=== PATIENT | female | born 1945 | race Caucasian/White ===

== ENCOUNTER → 2016-02-18 | Outpatient (CLI) | payer OTHER, MEDICARE ==
[~2016-02-18] MED LIST: ASPI1TAB83 PO; IBUP-1050 PO; TRAS440I2 IV.
[2016-02-18 13:47] VITALS: BP 103/68; PULSE 80; TEMP 36.5; O2SAT 96
--- NOTE | 2016-02-18 16:31 | Radiation Oncology Follow-Up ---
Radiation Oncology Follow-Up Date of Visit Feb 18, 2016. Reason For Visit 6 month follow-up Radiation Completion Date finished 08-05-2015 Diagnosis (1) Breast cancer, stage 2 Status: Resolved Onset Date: 11/20/2014 Stage: ll Permanent Comment: Self detected left breast mass Status post fine-needle biopsy 11/20/2014 revealing invasive ductal carcinoma grade 3 Ila receptor negative, progesterone receptor negative, HER-2/darren positive Status post lumpectomy and sentinel lymph node biopsy 12/17/2014 Pathologic stage [id number] 6 cycles of chemotherapy TCH and then Herceptin for a total of one year Status post completion of radiation therapy 08/05/2015 received 6280 cGy Last Edited By: Katherin Ng on Aug 21, 2015 10:04 History of Present Illness Ms. Gonzalez is a 71 year-old female without a family history of breast cancer. She self detected a mass in the left inframammary fold. This was causing irritation with her bra. She therefore underwent diagnostic bilateral mammogram performed on 11/18/2014 at [facility]. The right breast findings were unremarkable. In the left breast a palpable lump was noted in the inframammary fold. This palpable mass corresponded to a new round mass with irregular margins seen at the posterior depth 6 o'clock position on mammogram. Targeted ultrasound showed corresponding irregular shadowing mass. This was felt to be highly suspicious and a ultrasound guided core biopsy was suggested. No adenopathy was appreciated. On 11/20/2014 patient underwent a biopsy of the left breast 6 o'clock position, 7 cm from the nipple. This revealed an invasive ductal carcinoma grade 3. Estrogen receptors were negative, progesterone receptors were negative and HER-2 /darren oncoprotein expression is positive. Accession #: [id number]. Patient was subsequently seen by Dr. Vivian Reed for evaluation and discussion of the surgical treatment options.. The patient opted to proceed with breast conserving therapy consisting of a lumpectomy and sentinel node biopsy. This procedure was performed on 12/17/2014. 2 sentinel lymph nodes were identified and were both were benign. The lumpectomy specimen contained an invasive carcinoma NOS, high-grade, 2.2 cm. The invasive carcinoma did not invade into the dermis or epidermis. No DCIS was identified in the specimen. The margins were uninvolved by invasive carcinoma. The distance from the closest invasive margin was 0.2 cm and was the anterior margin. The final pathology was therefore pT2 pN0, ER negative CT negative HER-2/darren positive. Accession #: [id number]. The patient was seen by Dr. Vaughn Neville for discussion of the adjuvant treatment options. He recommended a course of systemic chemotherapy along with Herceptin. This chemotherapy is planned to start within the next week or so. We were asked to see this patient therefore to discuss with her the role of adjuvant radiation to begin following the completion of her systemic chemotherapy. It is for this reason the patient is being seen in referral. Following completion of her systemic chemotherapy she returned and underwent radiation therapy. This was completed 08/05/2015 she received 6280 cGy. Interim History She's been doing well over the past 6 months. She denies any changes to her breast. She has noted no masses or tenderness and no change of the axilla. She 's had no swelling of her arm. She is up-to-date on mammography. She's been followed closely by medical oncology and has had recheck echocardiograms. She has completed her Herceptin. Many of the side effects of treatment have steadily improved. Her hair is coming in and is very thick. The changes to the nails have grown out. She had a mammogram 11/23/2015. This showed previous radiation changes and excisional biopsy. The findings were benign. Short interval follow-up was recommended in 6 months for the left breast. The right breast had no evidence of malignancy and 1 year follow-up was recommended. This was given BI-RADS Category 3. Allergies Coded Allergies: No Known Allergies (Unverified , 12/07/14) Home Medications Scheduled Aspirin (Aspirin), 1 TAB PO DAILY Review of Systems Gastrointestinal: Symptoms: WNL Oral: Symptoms: No Problems Respiratory: Symptoms: WNL Urinary: Symptoms: WNL Skin: Symptoms: No Problems Breast: Right Upper Arm Measurement: 28.5 Right Mid Arm Measurement: 23.0 Right Wrist Measurement: 15.8 Left Upper Arm Measurement: 28.0 Left Mid Arm Measurement: 22.0 Left Wrist Measurement: 16.1 Arm Dominence: Right Patient Cosmetic Evaluation: Excellent Staff Cosmetic Evalaluation: Excellent Physical Exam Vital Signs Date Time Temp Pulse Resp B/P Pulse Ox O2 Delivery O2 Flow Rate FiO2 02/18/16 13:47 36.5 80 16 103/68 96 Pain: Side: Bilateral Patient Pain Scale: 0 - 10 Initial Pain Intensity: 0.0 Fatigue: None General Appearance: no apparent distress Eyes: normal inspection, EOMI ENT: normal ENT inspection, hearing grossly normal Neck: no adenopathy Respiratory/Chest: lungs clear, no respiratory distress, no accessory muscle use Breast: Breast examination reveals well-healed incisions of the left breast there is resolving hyperpigmentation. There are no masses or tenderness and no change of the axilla. There are no skin retractions or nipple changes. Using the [place] score cosmesis she has a good outcome. The right breast showed no masses or tenderness and no axillary adenopathy. Cardiovascular: regular rate, rhythm, no gallop, no murmur Abdomen: non tender, soft Extremities: no pedal edema Neurologic/Psychiatric: no motor/sensory deficits, alert, normal mood/affect Skin: warm/dry Lymphatic: no adenopathy Additional Studies Mammography as reviewed above. Assessment & Plan Plan: Continue scheduled mammography. She is due for a left breast mammogram in May. This has been scheduled. Continue regular follow-up with medical oncology as well as her primary care physician. We asked her to return to our office in 1 year. She may call if she has any questions or concerns in the interim. Total Time In Follow-Up I spent 20 minutes speaking to the patient performing examination. SPEP 15 minutes reviewing information and completing this note. Copy To Vivian Reed MD; Vaughn Neville M.D.; Luis Antonio Ingram M.D. Problem Qualifiers (1) Breast cancer, stage 2: Laterality: left Qualified Codes: C50.912 - Malignant neoplasm of unspecified site of left female breast
== END | disposition home or self-care (01) ==
LOC: C.ONC 13:23
PROVIDERS: ATTEND Radiology Radiation Oncology
DX: Z08 Encounter for follow-up examination after completed treatment for malignant neoplasm (principal); Z92.3 Personal history of irradiation; Z85.3 Personal history of malignant neoplasm of breast

== ENCOUNTER → 2017-02-16 | Outpatient (CLI) | payer OTHER, MEDICARE ==
[2016-02-18 13:47] VITALS: BP 103/68; PULSE 80
[~2017-02-16] MED LIST changes: -IBUP-1050 PO; +MULTTAB58 PO; -TRAS440I2 IV.
[2017-02-16 13:00] VITALS: BP 119/88; PULSE 76; TEMP 36.4; O2SAT 98
--- NOTE | 2017-02-16 14:23 | Radiation Oncology Follow-Up ---
Radiation Oncology Follow-Up Date of Visit Feb 16, 2017. Reason For Visit Annual follow-up Radiation Completion Date 08/05/15 Diagnosis (1) Breast cancer, stage 2 Status: Resolved Onset Date: 11/20/2014 Permanent Comment: Self detected left breast mass Status post fine-needle biopsy 11/20/2014 revealing invasive ductal carcinoma grade 3 Estrogen receptor negative, progesterone receptor negative, HER-2/darren positive Status post lumpectomy and sentinel lymph node biopsy 12/17/2014 Pathologic stage [id number] 6 cycles of chemotherapy TCH and then Herceptin for a total of one year Status post completion of radiation therapy 08/05/2015 received 6280 cGy Last Edited By: Katherin Ng on Feb 16, 2017 14:16 History of Present Illness Ms. Gonzalez is without a family history of breast cancer. She self detected a mass in the left inframammary fold. This was causing irritation with her bra. She therefore underwent diagnostic bilateral mammogram [facility] 11[facility]18[facility]2014 [facility]. The right breast findings were unremarkable. In the left breast a palpable lump was noted in the inframammary fold. This palpable mass corresponded to a new round mass with irregular margins seen at the posterior depth 6 o'clock position on mammogram. Targeted ultrasound showed corresponding irregular shadowing mass. This was felt to be highly suspicious and a ultrasound guided core biopsy was suggested. No adenopathy was appreciated. On 11/20/2014 patient underwent a biopsy of the left breast 6 o'clock position, 7 cm from the nipple. This revealed an invasive ductal carcinoma grade 3. Estrogen receptors were negative, progesterone receptors were negative and HER-2 /darren oncoprotein expression is positive. Accession #: [id number]. Patient was subsequently seen by Dr. Vivian Reed for evaluation and discussion of the surgical treatment options.. The patient opted to proceed with breast conserving therapy consisting of a lumpectomy and sentinel node biopsy. This procedure was performed on 12/17/2014. 2 sentinel lymph nodes were identified and were both were benign. The lumpectomy specimen contained an invasive carcinoma NOS, high-grade, 2.2 cm. The invasive carcinoma did not invade into the dermis or epidermis. No DCIS was identified in the specimen. The margins were uninvolved by invasive carcinoma. The distance from the closest invasive margin was 0.2 cm and was the anterior margin. The final pathology was therefore pT2 pN0, ER negative [place] negative HER-2/darren positive. Accession #: [id number]. The patient was seen by Dr. Vaughn Neville for discussion of the adjuvant treatment options. He recommended a course of systemic chemotherapy along with Herceptin. This chemotherapy is planned to start within the next week or so. We were asked to see this patient therefore to discuss with her the role of adjuvant radiation to begin following the completion of her systemic chemotherapy. It is for this reason the patient is being seen in referral. Following completion of her systemic chemotherapy she returned and underwent radiation therapy. This was completed 08/05/2015 she received 6280 cGy. Interim History She's been doing well over this past year. She denies any changes to her breast. She has noticed no masses or tenderness and no change of the axilla. No swelling of her arm. She is up-to-date on mammography. She had a mammogram 11/21/2016. This was a bilateral breast mammogram. This was negative with no evidence of malignancy with normal interval follow-up was recommended in 12 months. She finished her Herceptin without any difficulties. Allergies Coded Allergies: No Known Allergies (Unverified , 12/07/14) Home Medications Scheduled Aspirin (Aspirin), 1 TAB PO DAILY Multiple Vitamin (Multivitamin), 1 TAB PO 1-2x Week Review of Systems Gastrointestinal: Symptoms: WNL Oral: Symptoms: No Problems Respiratory: Symptoms: WNL Urinary: Symptoms: WNL Skin: Symptoms: No Problems Breast: Right Upper Arm Measurement: 28.0 Right Mid Arm Measurement: 23.0 Right Wrist Measurement: 15.7 Left Upper Arm Measurement: 28.7 Left Mid Arm Measurement: 23.1 Left Wrist Measurement: 15.6 Arm Dominence: Right Patient Cosmetic Evaluation: Excellent Staff Cosmetic Evalaluation: Excellent Physical Exam Vital Signs Date Time Temp Pulse Resp B/P (MAP) Pulse Ox O2 Delivery O2 Flow Rate FiO2 02/16/17 13:00 36.4 76 16 119/88 98 Fatigue: None General Appearance: no apparent distress Eyes: normal inspection, EOMI ENT: normal ENT inspection, hearing grossly normal Neck: no adenopathy, thyroid normal Respiratory/Chest: lungs clear, no respiratory distress, no accessory muscle use Breast: Breast examination reveals well-healed incisions of the left breast. There are no masses or tenderness and no axillary adenopathy. She has no skin retractions or nipple changes. Using the [place] score cosmesis she has a excellent outcome. The right breast showed no masses or tenderness no axillary adenopathy. Cardiovascular: regular rate, rhythm, no gallop, no murmur Abdomen: non tender, soft Extremities: no pedal edema Neurologic/Psychiatric: no motor/sensory deficits, alert, normal mood/affect Skin: warm/dry Lymphatic: no adenopathy Pain Management Patient Reports Pain: No Side: Bilateral Patient Preferred Pain Scale: 0 - 10 Initial Pain Intensity: 0.0 Pain Management Plan She denies pain therefore requires no pain management. Laboratory Laboratory Results: not applicable Pathology Pathology Results: not applicable Imaging Imaging Studies: were reviewed Imaging Comments See interim history. Assessment & Plan Plan: Continue annual mammography. Continue regular follow-up with Dr. Reed, Dr. Neville in medical oncology, and her primary care physician. We asked her to return to our office in 1 year. She will call if she has any questions or concerns in the interim. Total Time In Follow-Up I spent 20 minutes speaking to the patient perform examination. I spent 15 minutes reviewing information and completeness note. Copy To Vivian Reed MD; Vaughn Neville M.D.; Luis Antonio Ingram M.D. Problem Qualifiers (1) Breast cancer, stage 2: Laterality: left Qualified Codes: C50.912 - Malignant neoplasm of unspecified site of left female breast
== END | disposition home or self-care (01) ==
LOC: C.ONC 12:47
PROVIDERS: ATTEND Physician Assistant Medical
DX: Z08 Encounter for follow-up examination after completed treatment for malignant neoplasm (principal); Z92.3 Personal history of irradiation; Z85.3 Personal history of malignant neoplasm of breast

== ENCOUNTER 2017-03-13 23:02 | Inpatient (IN) | payer OTHER, MEDICARE ==
[~2017-03-13] VITALS: Ht 165.1 cm; Wt 69.3 kg
[2017-03-13] MEDS ORDERED: SODIUM CHLORIDE 0.9% 1000ML 1,000 ML IV SCH (23:14)
[2017-03-13 23:22] LABS: BASO % 0.3 %; BASO ABS # 0.02 K/uL (0-0.2); EOS % 1.3 %; HEMATOCRIT 43.2 % (37-47); HEMOGLOBIN 14.8 g/dL (12.0-16.0); IG# 0.02 K/uL (0.00-0.02); LYMPH % 30.3 %; MEAN CELL VOLUME 89.3 fL (80-100); MEAN CORPUSCULAR HEMOGLOBIN 30.6 pg (25-34); MEAN CORPUSCULAR HGB CONC 34.3 g/dl (32-36); MEAN PLATELET VOLUME 8.8 fL (7.4-10.4); MONO % 7.9 %; MONO ABS # 0.63 K/uL (0.11-0.59); NEUT % 59.9 %; NEUT ABS # 4.76 K/uL (1.4-6.5); PLATELET COUNT 249 K/uL (130-400); RED CELL DISTRIBUTION WIDTH CV 13.3 % (11.5-14.5); RED CELL DISTRIBUTION WIDTH SD 43.5 fL (36.4-46.3); WHITE BLOOD COUNT 7.93 K/uL (4.8-10.8)
--- NOTE | 2017-03-13 23:27 | EMERGENCY ROOM VISIT NOTE ---
History Report prepared by Kimberley: Bethanie Claudio Under the Supervision of: Dr. Modesta Ware D.O. First contact with patient: 22:57 Chief Complaint: NEURO SYMPTOMS Stated Complaint: WEAK/NAUSEA/ALMS History of Present Illness The patient is a 72 year old female who presents to the Emergency Room with complaints of an episode of neuro symptoms starting 4 hours ago. Per the patient 's , he came home an hour ago and she was sleeping. He states that he woke her up and she seemed disoriented. He states that she was unable to walk and form sentences. The patient states that she was having difficulty driving earlier right after her last known well time. The patient complains of difficulty finding her words, nausea, vomiting, and weakness. The patient denies blurred vision, headaches, urinary symptoms, dizziness, lightheadedness, abdominal pain, chest pain, cough, diarrhea, and hematochezia. She denies ever having these symptoms before. EMS notes that the patient is unable to relax her right arm. Source of History: patient Onset: 4 hours ago Position: other (global) Quality: other (neuro) Timing: other (episode) Associated Symptoms: + nausea, + vomiting, + weakness, No headache, No cough , No chest pain, No abdominal pain, No hematochezia, No diarrhea, No urinary symptoms Note: The patient complains of difficulty finding her words. The patient denies blurred vision, dizziness, and lightheadedness. Review of Systems See HPI for pertinent positives & negatives. A total of 10 systems reviewed and were otherwise negative. Past Medical & Surgical Medical Problems: (1) Breast cancer, stage 2 (2) Increased intracranial pressure Family History No pertinent family history Social History Smoking Status: Former Smoker Marital Status: Housing Status: lives with significant other Current/Historical Medications Scheduled Aspirin (Aspirin), 1 TAB PO DAILY Multiple Vitamin (Multivitamin), 1 TAB PO 1-2x Week Allergies Coded Allergies: No Known Allergies (Unverified , 03/14/17) Physical Exam Vital Signs Date Time Temp Pulse Resp B/P (MAP) Pulse Ox O2 Delivery O2 Flow Rate FiO2 03/14/17 00:11 36.5 78 18 121/88 95 Room Air 03/13/17 23:55 95 Room Air 03/13/17 23:49 77 18 146/84 95 Room Air 03/13/17 23:13 79 Physical Exam GENERAL: alert, well appearing, well nourished, no distress, non-toxic EYE EXAM: normal conjunctiva, PERRL and EOM's grossly intact OROPHARYNX: no exudate, no erythema, lips, buccal mucosa, and tongue normal and mucous membranes are moist NECK: supple, no nuchal rigidity, no adenopathy, non-tender LUNGS: Clear to auscultation. Normal chest wall mechanics HEART: no murmurs, S1 normal and S2 normal ABDOMEN: abdomen soft, non-tender, normo-active bowel sounds, no masses, no rebound or guarding. BACK: Back is symmetrical on inspection and there is no deformity, no midline tenderness, no CVA tenderness. SKIN: no rashes and no bruising UPPER EXTREMITIES: upper extremities are grossly normal. LOWER EXTREMITIES: No pitting edema. NEURO EXAM: Cranial nerves II-XII grossly intact, normal speech, difficulty understanding and following commands, moving all four extremities spontaneously , difficulty cooperating for strength and sensory testing, difficulty understanding and cooperating for cerebellar testing, no obvious asymmetric limb weakness or ataxia, last known well time is 1900. Medical Decision & Procedures ER Provider Diagnostic Interpretation: Radiology results have been interpreted by the radiologist and reviewed by me. CT HEAD: No intracranial hemorrhage or apparent acute infarct. Vasogenic edema involving the left parietal lobe with local mass effect. Underlying lesion not delineated on this exam. Recommend MRI with and without contrast to further assess. No midline shift. Radiologist: Jud Weber MD Study ready at 23:26 and initial results transmitted at 23:31. Laboratory Results 03/13/17 22:46 Red Blood Count 4.84, Mean Corpuscular Volume 89.3, Mean Corpuscular Hemoglobin 30.6, Mean Corpuscular Hemoglobin Concent 34.3, Mean Platelet Volume 8.8, Neutrophils (%) (Auto) 59.9, Lymphocytes (%) (Auto) 30.3, Monocytes (%) (Auto) 7.9, Eosinophils (%) (Auto) 1.3, Basophils (%) (Auto) 0.3, Neutrophils # (Auto) 4.76, Lymphocytes # (Auto) 2.40, Monocytes # (Auto) 0.63, Eosinophils # (Auto) 0.10, Basophils # (Auto) 0.02 03/13/17 22:46 Test 2/5/18 22:46 White Blood Count 7.93 K/uL (4.8-10.8) Red Blood Count 4.84 M/uL (4.2-5.4) Hemoglobin 14.8 g/dL (12.0-16.0) Hematocrit 43.2 % (37-47) Mean Corpuscular Volume 89.3 fL (80-100) Mean Corpuscular Hemoglobin 30.6 pg (25-34) Mean Corpuscular Hemoglobin Concent 34.3 g/dl (32-36) Platelet Count 249 K/uL (130-400) Mean Platelet Volume 8.8 fL (7.4-10.4) Neutrophils (%) (Auto) 59.9 % Lymphocytes (%) (Auto) 30.3 % Monocytes (%) (Auto) 7.9 % Eosinophils (%) (Auto) 1.3 % Basophils (%) (Auto) 0.3 % Neutrophils # (Auto) 4.76 K/uL (1.4-6.5) Lymphocytes # (Auto) 2.40 K/uL (1.2-3.4) Monocytes # (Auto) 0.63 K/uL (0.11-0.59) Eosinophils # (Auto) 0.10 K/uL (0-0.5) Basophils # (Auto) 0.02 K/uL (0-0.2) RDW Standard Deviation 43.5 fL (36.4-46.3) RDW Coefficient of Variation 13.3 % (11.5-14.5) Immature Granulocyte % (Auto) 0.3 % Immature Granulocyte # (Auto) 0.02 K/uL (0.00-0.02) Prothrombin Time 9.8 SECONDS (9.0-12.0) Prothromb Time International Ratio 0.9 (0.9-1.1) Activated Partial Thromboplast Time 26.9 SECONDS (21.0-31.0) Partial Thromboplastin Ratio 1.0 Anion Gap 4.0 mmol/L (3-11) Estimated GFR () 106.1 Estimated GFR (Non- 91.6 BUN/Creatinine Ratio 36.1 (10-20) Calcium Level 9.2 mg/dl (8.5-10.1) Magnesium Level 2.1 mg/dl (1.8-2.4) Total Bilirubin 0.4 mg/dl (0.2-1) Direct Bilirubin < 0.1 mg/dl (0-0.2) Aspartate Amino Transf (AST/SGOT) 16 U/L (15-37) Alanine Aminotransferase (ALT/SGPT) 15 U/L (12-78) Alkaline Phosphatase 92 U/L (45-117) Total Creatine Kinase 48 U/L (26-192) Creatine Kinase MB 1.0 ng/ml (0.5-3.6) Creatine Kinase MB Ratio 2.1 (0-3.0) Troponin I < 0.015 ng/ml (0-0.045) Total Protein 7.4 gm/dl (6.4-8.2) Albumin 3.9 gm/dl (3.4-5.0) Thyroid Stimulating Hormone (TSH) 1.940 uIu/ml (0.300-4.500) Laboratory results per my review. Medications Administered Medications (Trade) Dose Ordered Sig/Benjamin Route Start Time Stop Time Status Last Admin Dose Admin Sodium Chloride 1,000 ml @ 50 mls/hr Q20H IV 03/13/17 23:14 03/14/17 04:42 DC 03/14/17 00:06 50 MLS/HR Ondansetron HCl (Zofran Inj) 4 mg NOW STAT IV 03/13/17 23:28 03/13/17 23:29 DC 03/14/17 00:47 4 MG Levetiracetam 1000 mg/Dextrose 110 ml @ 440 mls/hr ONE ONCE IV 03/14/17 00:30 03/14/17 00:44 DC 03/14/17 00:38 440 MLS/HR Dexamethasone Sodium Phosphate 4 mg/Syringe 1 ml @ 1 mls/min NOW STAT IV 03/14/17 01:06 03/14/17 01:08 DC 03/14/17 01:06 1 MLS/MIN ECG Indication: altered mental status Rate (beats per minute): 78 Rhythm: sinus rhythm Findings: no acute ischemic change, no ectopy, other (normal axis, normal intervals, baseline artifact noted) Change: EKG: Patient's electrocardiogram per my interpretation. ED Course 2302: The patient was evaluated in room B7. A complete history and physical exam was performed. 2313: Stroke alert called. 2314: Ordered NSS 1000 ml @ 50 mls/hr IV. 2322: Additional discussion with the family revealed no other obvious symptoms to administer TPA. 2328: Ordered Zofran Inj 4 mg IV. 2329: I reevaluated the patient and she was unchanged. 2331: I discussed the patient's case with Dr. Ethan Landry Neurology. He is going to do a bedside evaluation as a precaution. 2334: I updated the patient and her family on her test results and need for additional evaluation. No change in condition. 2354: I reevaluated the patient and she remains unchanged. The tele-stroke conference is currently going on. 0014: I reevaluated the patient and the bed side evaluation via video conference with Dr. Weiss was still going on. He states that she needs admission to a facility with neurosurgical coverage. He recommends 1 g Keppra and 10 mg of Decadron. The family is aware of the results and is agreeable to transfer. They would prefer to be transferred to [facility]. 0030: Ordered Levetiracetam 1000 mg/ Dextrose 110 ml @ 440 mls/hr IV. 0101: I discussed the patient's case with Dr. Gerardo Hernandez Neurosurgeon. He agrees with 4 mg of Decadron and is agreeable with the Keppra. He does not believe that she needs any acute surgical intervention. 0106: Ordered Dexamethasone Sodium Phosphate 4 mg/Syringe 1 ml @ 1 mls/min IV. 0111: I discussed the patient's case with Dr. Laurel Hernandez Hospitalist. He recommended talking to neurology. 0113: Ordered Decadron Inj 4 mg IV. 0118: I discussed the patient's case with Dr. Nirali Hernandez Neurology. There are no current beds in their facility. Her name is on a wait list for a bed. 0125: I reevaluated the patient and updated her and her family. 0135: I reviewed the patient's case with Dr. Yulia Hernandez Hospitalignacia. He will evaluate the patient for further management till she can be transferred. Medical Decision The patient is a 72 year old female who presents to the Emergency Room with complaints of an episode of neuro symptoms starting 4 hours ago. Differential diagnosis: Etiologies such as metabolic, infection, hypo/hyperglycemia, electrolyte abnormalities, cardiac sources, intracerebral event, toxicologic, neurologic, as well as others were entertained. Pt initially evaluated and thought to possible by having a stroke. Stroke alert called and pt evaluated via tele neurologist. CT revealed edema thought to possible be mets from prior breast cancer. No midline shift, no need for emergent surgical intervention. Discussed case with multiple consultants given recommendation by tele neurologist to transfer to facility with neuro icu and neurosurgical coverage. No beds available at [facility] and they feel stable to remain here until bed becomes available later in the morning. Discussed with Dr. Rosas to manage in the interim. Pt sx mildly improved here. Keppra and decadron given. No additional infectious etiology noted. Hemodynamically stable. Pt and aware of all results, concerns, and agreeable with plan. Medication Reconcilliation Current Medication List: was personally reviewed by me Blood Pressure Screening Patient's blood pressure: Elevated blood pressure Blood pressure disposition: Elevated BP felt to be situational Consults Time Called: 232 Consulting Physician: Dr. Ethan Landry Neurologist Returned Call: 2331 I discussed the patient's case with Dr. Ethan Landry Neurology. He is going to do a bedside evaluation as a precaution. Additional Consults: Time Called: 002 Consulted Physician: Dr. Gerardo Hernandez Neurosurgeon Returned Call: 0101 Additional Comments: I discussed the patient's case with Dr. Gerardo Hernandez Neurosurgeon. He agrees with 4 mg of Decadron and is good with the Keppra. He does not believe that she needs any acute intervention. Time Called: 0108 Consulted Physician: Dr. Laurel Hernandez Hospitalist Returned Call: 0111 Additional Comments: I discussed the patient's case with Dr. Laurel Brager. He recommended talking to neurology. Impression Primary Impression: Stroke-like symptom Additional Impression: Cerebral edema Critical Care I have personally spent 60 minutes of critical care time in the direct management of this patient. This includes bedside care, interpretation of diagnostic studies, and testing, discussion with consultants, patient, and family members, and other required patient management activities. This 60 minutes is in excess of all separately billable procedures. Scribe Attestation The scribe's documentation has been prepared under my direction and personally reviewed by me in its entirety. I confirm that the note above accurately reflects all work, treatment, procedures, and medical decision making performed by me. Departure Information Dispostion Being Evaluated By Hospitalist Patient Instructions My [facility] Stroke History Time Last Known Well 1900 (4 hours ago) Stroke t-PA Criteria Reviewed Does NOT meet criteria for t-PA Reason t-PA Not Given Contraindicated Problem Qualifiers
[2017-03-13] MEDS ORDERED: ONDANSETRON INJ 2 MG/ML 2 ML VIAL IV STA (23:28)
[2017-03-13 23:33] LABS: INR 0.9 (0.9-1.1); PTT PATIENT 26.9 SECONDS (21.0-31.0)
[2017-03-13 23:39] LABS: BLOOD UREA NITROGEN 21 mg/dl (7-18); CALCIUM 9.2 mg/dl (8.5-10.1); CARBON DIOXIDE 31 mmol/L (21-32); GLUCOSE 106 mg/dl (70-99); POTASSIUM 4.4 mmol/L (3.5-5.1); SODIUM 139 mmol/L (136-145)
[2017-03-13 23:42] LABS: CREATININE 0.59 mg/dl (0.60-1.20)
[2017-03-13 23:49] LABS: ALBUMIN 3.9 gm/dl (3.4-5.0); ALKALINE PHOSPHATASE 92 U/L (45-117); ALT/SGPT 15 U/L (12-78); AST/SGOT 16 U/L (15-37); TOTAL PROTEIN 7.4 gm/dl (6.4-8.2)
[2017-03-14] MEDS ORDERED: LEVETIRACETAM IV 1,000 MG in DEXTROSE 5% 100ML 100 ML IV ONE (00:30)
[2017-03-14] MEDS ORDERED: DEXAMETHASONE INJ 4 MG in SYRINGE 0 ML IV STA (01:06)
[2017-03-14] MEDS ORDERED: DEXAMETHASONE SOD INJ 4 MG/ML VIAL ONE (01:13)
[2017-03-14] MEDS ORDERED: DEXAMETHASONE SOD INJ 4 MG/ML VIAL IV STA (02:10)
[2017-03-14] MEDS ORDERED: DEXAMETHASONE INJ 6 MG in SYRINGE 0 ML IV ONE (02:15)
[2017-03-14 02:16] VITALS: BP 118/79; PULSE 76; TEMP 36.5; O2SAT 96; Ht 165.1 cm; Wt 69.3 kg
[2017-03-14 02:24] VITALS: O2SAT 95
[2017-03-14] MEDS ORDERED: LORAZEPAM 2 MG/ML 1 ML VIAL IV PRN (02:30)
[2017-03-14] MEDS ORDERED: PROCHLORPERAZINE INJ 5 MG in SYRINGE 4 ML IV PRN (02:30)
[2017-03-14] MEDS ORDERED: MoRPHine SULFATE 4 MG/ML 1 ML CARP\\VIAL IV PRN (02:30)
[2017-03-14] MEDS ORDERED: OXYCODONE/ACETAMINOPHEN 5-325 TAB PO PRN (02:30)
[2017-03-14] MEDS ORDERED: NITROGLYCERIN 0.4 MG SL PER TAB CHARGE SL PRN (02:30)
[2017-03-14] MEDS ORDERED: ACETAMINOPHEN 325 MG TAB PO PRN (02:30)
[2017-03-14] MEDS ORDERED: GADAVIST IV PRN (03:30)
[2017-03-14] MEDS ORDERED: SODIUM CHLORIDE 0.9% 1000ML 1,000 ML IV ONE (04:30)
--- NOTE | 2017-03-14 05:59 | HISTORY & PHYSICAL EXAMINATION ---
DATE OF ADMISSION: 03/14/2017 PRIMARY CARE PHYSICIAN: Luis Antonio Ingram MD CHIEF COMPLAINT: Disoriented as per records. HISTORY OF PRESENT ILLNESS: History obtained from patient, , and records. Limited history obtained from the patient secondary to aphasia. Medical history significant of breast cancer, left, status post surgery, radiation, chemotherapy, hormonal therapy. Patient was found to have adenocarcinoma of the left breast in November 2014. She subsequently underwent surgery, radiation, chemotherapy, and hormonal therapy. Last PET scan in January 2015 showed no metabolically active lesions Noted anywhere else about 3-4 mm right upper lobe nodule noted. CT chest, abdomen, pelvis 08/2016 1. Two small pulmonary nodules again noted, stable in size since the prior CT. 2. Stable size of right paraspinal cystic mass at T7 level. Consider continued attention on the follow up studies. 3. No new enlarged thoracic lymph nodes. 4. Postoperative changes of left mastectomy with a small residual fluid collection which has decreased in size since the prior exam. Bilateral breast mammogram November 2016 showed new no new suspicious findings. Clinically well as per recent outpatient [facility] On[place] follow-up visit last week. Yesterday, patient had trouble driving. Later on, had trouble finding words, nonspecific headache. Patient's found her confused. No chest pain, no shortness of breath, no head trauma. At the Emergency Room, CT head initial read showed no intracranial hemorrhage, vasogenic edema involving the left parietal lobe with local mass effect. Recommend MRI. Unable to transfer patient to a tertiary hospital secondary to bed unavailability. Given Decadron in the ER for increased intracranial pressure from a possible brain tumor and given Keppra for seizure prophylaxis as per [facility] Neurosurgery recommendations. Patient currently able to talk more as per . MEDICAL HISTORY: As above. Colonoscopy in 2016 showed diverticulosis. SURGERIES: She has had an A port placement, breast surgery, foot surgery. HOME MEDICATIONS: Include aspirin and multivitamins. ALLERGIES: No known drug allergies. FAMILY HISTORY: Breast cancer and lung cancer. PERSONAL AND SOCIAL HISTORY: Past tobacco abuse. 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 REVIEW OF SYSTEMS: Could not be reliably obtained. PHYSICAL EXAMINATION: VITAL SIGNS: Blood pressure noted to be 121/88, pulse rate 80, RR 18, temperature 36.5, sats 95 on room air. GENERAL: Noted to be anxious, tearful, no respiratory distress, aphasic. SKIN: Normal color and warm. HEENT: Albin palpebral conjunctivae. No ptosis. Dry mucosa. NECK: Supple and nontender. CHEST: Clear to auscultation. No tenderness. HEART: Regular rate and rhythm. No murmur. ABDOMEN: Soft, nontender. EXTREMITIES: No edema. No gross deformities. No tenderness NEUROLOGIC: Aphasic. No pronator drift. ? field cut/neglect on the right side. LABORATORY STUDIES: Hemoglobin was noted to be 14.8, hematocrit 43.2, white cell count 7.9, platelets 249. Sodium 140, potassium 4.4, chloride 104, CO2 21, BUN 21, creatinine 0.5, glucose 106. EKG, as per my interpretation, rate 80, normal sinus rhythm, no ischemia. CT head as above. ASSESSMENT AND PLAN: 1. 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 2. Past tobacco abuse. PCU neurochecks. Decadron RTC for now. Keppra for seizure prophylaxis. MRI of the brain. Will likely need Oncology consultation regarding brain tumor workup/mx pending MRI results. (Patient known to Dr. Neville.) DVT prophylaxis, SCDs RE brain tumor. Full code. Patient's requesting updates from providers. Mr. Guillermo Gonzalez at [phone]. MTDD
--- NOTE | 2017-03-14 07:10 | DIAGNOSTIC IMAGING REPORT ---
CT SCAN OF THE BRAIN WITHOUT IV CONTRAST CLINICAL HISTORY: Strokelike symptoms. COMPARISON STUDY: No priors. TECHNIQUE: Unenhanced axial CT scan of the brain is performed from the vertex to the skull base. A dose lowering technique was utilized adhering to the principles of ALARA. CT DOSE: 537.48 mGy.cm FINDINGS: Brain parenchyma: There is a large region of edema identified in the high left parietal lobe. Tiny foci of hyperdensity seen on image #21 may represent trace hemorrhage. The overlying cortex is spared, and the appearance is highly concerning for a mass lesion. There is effacement of overlying cortical sulci. This also effaces the posterior horn of the left lateral ventricle. No midline shift is seen. No additional foci of edema are identified. There are age-related involutional changes noting mild subcortical and periventricular microangiopathic change. There is no evidence of acute territorial ischemia by CT criteria. No extra-axial fluid collection is seen. Ventricles, sulci, cisterns: Prominent secondary to involutional change. See above. Intracranial vasculature: There is atherosclerotic calcification of the cavernous carotid arteries. Calvarium: Unremarkable. Sinuses and mastoids: The visualized paranasal sinuses are clear. The mastoid air cells are well pneumatized. Orbits: The bony orbits are grossly intact. There are bilateral ocular lens implants. IMPRESSION: 1. There is a large focus of edema identified in the high left parietal lobe. The appearance is highly concerning for a mass, and follow-up with a contrast-enhanced MRI of the brain is recommended for further assessment. 2. Question trace hemorrhage within this lesion. 3. No additional foci of edema are suspected. 4. There is no evidence of acute territorial ischemia by CT criteria. No midline shift is identified. Electronically signed by: Semaj Stringer M.D. 03/14/2017 7:09 AM Dictated Date/Time: 03/14/2017 7:05 AM
--- NOTE | 2017-03-14 07:14 | DIAGNOSTIC IMAGING REPORT ---
BRAIN COMBO CLINICAL HISTORY: leal, aphasia mental status change COMPARISON STUDY: No previous studies for comparison. TECHNIQUE: Utilizing a 1.5 Daphne magnet and dedicated coil, multiplanar, multiecho imaging of the brain was performed pre and postcontrast administration. IV administration of 7 mL of Gadavist contrast was uneventful. FINDINGS: There is evidence for a peripheral enhancing mass posterior aspect left parietal occipital lobe. The enhancing component measures 2.7 x 2.0 cm. Enhancement characteristics are primarily peripheral with several internal enhancing septations. Considerable surrounding reactive vasogenic edema. This extends over a distance of 7.8 x 4.5 cm. It creates partial effacement occipital horn left lateral ventricle. There is partial impact upon the left optic radiations. There is no definite and/or only very subtle midline shift to the right no more than 3 mm. Remainder the brain demonstrates several small foci of increased signal within the periventricular deep white matter regions. These additional findings show no abnormal postcontrast enhancement and is suggestive of chronic small vessel change. Diffusion-weighted images show a slight increase in signal surrounding the enhancing mass. It is not, however appear to be evidence for a true focal ischemic event. The basilar cisterns are intact. The sella and parasellar regions are unremarkable. Pituitary is unremarkable. IMPRESSION: 1. Peripherally enhancing mass of the left parietal occipital junction posteriorly. 2. Diagnostic considerations primarily include a focal primary brain neoplastic process such as glioblastoma, with other entities less likely. 3. Considerable surrounding geographic area of reactive vasogenic edema with partial effacement occipital horn left lateral ventricle and slight midline shift to the right. 4. No additional lesions are identified. The above report was generated using voice recognition software. It may contain grammatical, syntax or spelling errors. Electronically signed by: Hoang Naranjo M.D. 03/14/2017 7:12 AM Dictated Date/Time: 03/14/2017 7:03 AM
[2017-03-14 07:27] VITALS: BP 106/70; PULSE 90; TEMP 36.8; O2SAT 96
[2017-03-14] MEDS: DEXAMETHASONE INJ 4 MG in SYRINGE 0 ML IV SCH ×2 (08:21→16:45)
[2017-03-14] MEDS ORDERED: OPTIRAY 320 IV PRN (10:15)
[2017-03-14 11:48] VITALS: BP 116/80; PULSE 93; TEMP 36.5; O2SAT 96
--- NOTE | 2017-03-14 13:51 | DIAGNOSTIC IMAGING REPORT ---
CT ABD/PELVIS IV CONTRAST ONLY CLINICAL HISTORY: Breast carcinoma COMPARISON STUDY: None. TECHNIQUE: Following the IV administration of 94 mL of Optiray-320, CT scan of the abdomen and pelvis was performed from the lung bases to the proximal femurs. Images are reviewed in the axial, sagittal, and coronal planes. IV contrast was administered without complication. A dose lowering technique was utilized adhering to the principles of ALARA. CT DOSE: FINDINGS: Lower chest: There is a 2 mm pleural-based left lower lobe point nodule. There is a presumed biopsy cavity within the medial left breast. Liver: The contrast-enhanced liver is normal in size, contour, and attenuation. There is no intrahepatic biliary ductal dilatation. The hepatic veins and portal veins are patent. Gallbladder: Unremarkable. Spleen: Normal in size and attenuation. Pancreas: Unremarkable. Adrenal glands: Unremarkable. Kidneys: There are subcentimeter renal hypodensities, most consistent with cysts Bowel: There are no transition zones indicate bowel obstruction. There is colonic diverticulosis. There are no acute peridiverticular inflammatory changes. The appendix appears normal. Peritoneum: There is no intraperitoneal free air or abdominal ascites. Vasculature: The abdominal aorta is normal in course and caliber. Adenopathy: None. Pelvic viscera: The bladder, and pelvic viscera are unremarkable. Skeletal structures: No destructive osseous lesions are seen. IMPRESSION: No CT evidence of intra-abdominal or pelvic metastasis. Electronically signed by: Harshal Koehler M.D. 03/14/2017 1:50 PM Dictated Date/Time: 03/14/2017 1:45 PM
--- NOTE | 2017-03-14 13:54 | DIAGNOSTIC IMAGING REPORT ---
(CHEST) THORAX WITH CLINICAL HISTORY: 72 years-old Female presenting with r/o metastases, history of breast cancer. TECHNIQUE: Multidetector CT imaging of the chest was performed after the administration of intravenous contrast. IV contrast: 94 mL of Optiray 320. A dose lowering technique was used consistent with the principles of ALARA (as low as reasonably achievable). COMPARISON: Nondiagnostic radiation planning CT scan from 06/04/2015. CT DOSE (mGy.cm): The estimated cumulative dose is 819.14 mGycm. FINDINGS: [facility] [employer] [facility] topogram: Unremarkable. On soft tissue windows, fat necrosis evident in the lower inner quadrant of the left breast. Normal thyroid. No axillary, supraclavicular, hilar, or mediastinal lymphadenopathy. Main pulmonary artery enlarged measuring 2.3 cm in transverse dimension. Normal thoracic aorta. Normal heart size. No pericardial or pleural effusion. Upper abdomen normal. On lung windows, minimal dependent changes likely atelectasis. Bandlike opacity in the middle lobe likely scarring or atelectasis. Mild mosaic attenuation at the lung bases, possibly small airways disease. No other focal nodule or infiltrate. Airways patent. On bone windows, normal osseous structures. Mild osteopenia. No destructive osseous lesion. IMPRESSION: 1. No evidence of intrathoracic metastatic disease. Electronically signed by: Tim Sampson M.D. 03/14/2017 1:52 PM Dictated Date/Time: 03/14/2017 1:47 PM
--- NOTE | 2017-03-14 14:36 | Progress Note ---
Internal Med Progress Note Date of Service: Mar 14, 2017. Provider Documentation: SUBJECTIVE: The patient was seen and examined Pleasantly confused Difficult to get to understand commands and carry out effectively OBJECTIVE: Vital Signs-as noted below Exam: General-No acute distress Eyes-normal ENT-normal Neck-supple Lungs-Clear to ausucltate bilaterally Heart-Regular,no murmur appreciated Abdomen-Benign Extremities-No edema Neuro-AA Pleasantly confused Difficult to get to understand commands and carry out effectively Has gross incoordination in movements Lab data as noted below. ASSESSMENT & PLAN: Intracranial Mass with surrounding Edema Aphasia, apraxia secondary to increased intracranial pressure Decadron RTC for now. Keppra for seizure prophylaxis. Likely primary as per Radiologist assessment and no evidence of Mets in CTs Discussed with Dr Neville -the oncologist Discussed with the patient and the Will transfer to Neurosurgery department in [place] today Past tobacco abuse. Smoke cessation-counselling DVT prophylaxis, SCDs RE brain tumor. Full code. Vital Signs: Date Time Temp Pulse Resp B/P (MAP) Pulse Ox O2 Delivery O2 Flow Rate FiO2 03/14/17 12:00 Room Air 03/14/17 11:48 36.5 93 18 116/80 (92) 96 Room Air 03/14/17 08:00 Room Air 03/14/17 07:27 36.8 90 18 106/70 (82) 96 Room Air 03/14/17 02:24 36.5 80 18 113/89 95 Room Air 03/14/17 02:16 36.5 76 20 118/79 96 Room Air 03/14/17 00:11 36.5 78 18 121/88 95 Room Air 03/13/17 23:55 95 Room Air 03/13/17 23:49 77 18 146/84 95 Room Air 03/13/17 23:13 79 Lab Results: Results Past 24 Hours Test 03/13/17 22:46 03/14/17 05:15 Range/Units White Blood Count 7.93 4.8-10.8 K/uL Red Blood Count 4.84 4.2-5.4 M/uL Hemoglobin 14.8 12.0-16.0 g/dL Hematocrit 43.2 37-47 % Mean Corpuscular Volume 89.3 80-100 fL Mean Corpuscular Hemoglobin 30.6 25-34 pg Mean Corpuscular Hemoglobin Concent 34.3 32-36 g/dl Platelet Count 249 130-400 K/uL Mean Platelet Volume 8.8 7.4-10.4 fL Neutrophils (%) (Auto) 59.9 % Lymphocytes (%) (Auto) 30.3 % Monocytes (%) (Auto) 7.9 % Eosinophils (%) (Auto) 1.3 % Basophils (%) (Auto) 0.3 % Neutrophils # (Auto) 4.76 1.4-6.5 K/uL Lymphocytes # (Auto) 2.40 1.2-3.4 K/uL Monocytes # (Auto) 0.63 0.11-0.59 K/uL Eosinophils # (Auto) 0.10 0-0.5 K/uL Basophils # (Auto) 0.02 0-0.2 K/uL RDW Standard Deviation 43.5 36.4-46.3 fL RDW Coefficient of Variation 13.3 11.5-14.5 % Immature Granulocyte % (Auto) 0.3 % Immature Granulocyte # (Auto) 0.02 0.00-0.02 K/uL Prothrombin Time 9.8 9.0-12.0 SECONDS Prothromb Time International Ratio 0.9 0.9-1.1 Activated Partial Thromboplast Time 26.9 21.0-31.0 SECONDS Partial Thromboplastin Ratio 1.0 Sodium Level 139 136-145 mmol/L Potassium Level 4.4 3.5-5.1 mmol/L Chloride Level 104 98-107 mmol/L Carbon Dioxide Level 31 21-32 mmol/L Anion Gap 4.0 3-11 mmol/L Blood Urea Nitrogen 21 7-18 mg/dl Creatinine 0.59 0.60-1.20 mg/dl Estimated GFR () 106.1 Estimated GFR (Non- 91.6 BUN/Creatinine Ratio 36.1 10-20 Random Glucose 106 70-99 mg/dl Calcium Level 9.2 8.5-10.1 mg/dl Magnesium Level 2.1 1.8-2.4 mg/dl Total Bilirubin 0.4 0.2-1 mg/dl Direct Bilirubin < 0.1 0-0.2 mg/dl Aspartate Amino Transf (AST/SGOT) 16 15-37 U/L Alanine Aminotransferase (ALT/SGPT) 15 12-78 U/L Alkaline Phosphatase 92 45-117 U/L Total Creatine Kinase 48 26-192 U/L Creatine Kinase MB 1.0 0.5-3.6 ng/ml Creatine Kinase MB Ratio 2.1 0-3.0 Troponin I < 0.015 0-0.045 ng/ml Total Protein 7.4 6.4-8.2 gm/dl Albumin 3.9 3.4-5.0 gm/dl Thyroid Stimulating Hormone (TSH) 1.940 0.300-4.500 uIu/ml Urine Color YELLOW Urine Appearance CLEAR CLEAR Urine pH 8.0 4.5-7.5 Urine Specific [place] 1.017 1.000-1.030 Urine Protein NEG NEG Urine Glucose (UA) NEG NEG Urine Ketones 1+ NEG Urine Occult Blood NEG NEG Urine Nitrite NEG NEG Urine Bilirubin NEG NEG Urine Urobilinogen NEG NEG Urine Leukocyte Esterase TRACE NEG Urine WBC (Auto) 1-5 0-5 /hpf Urine RBC (Auto) 5-10 0-4 /hpf Urine Hyaline Casts (Auto) 0 0-5 /lpf Urine Epithelial Cells (Auto) 5-10 0-5 /lpf Urine Bacteria (Auto) NEG NEG Microbiology Results 03/14/17 Urine Culture, Received Pending
--- NOTE | 2017-03-14 14:39 | Discharge Instructions ---
Discharge Instructions Date of Service Mar 14, 2017. Admission Reason for Admission: Increased Intracranial Pressure Discharge Discharge Diagnosis / Problem: Intracraneal Mass Discharge Goals Goal(s): Prevent Disease Progression Activity Recommendations Activity Limitations: resume your previous activity . Instructions / Follow-Up Instructions / Follow-Up Please make an appointment with your PCP in 1 week following discharge Current Hospital Diet Patient's current hospital diet: Regular Diet Discharge Diet Recommended Diet: Regular Diet Pending Studies Studies pending at discharge: no Medical Emergencies . Who to Call and When: Medical Emergencies: If at any time you feel your situation is an emergency, please call 911 immediately. . Non-Emergent Contact Non-Emergency issues call your: Primary Care Provider . Past History Medical & Surgical History: (1) Increased intracranial pressure (2) Cerebral edema (3) Stroke-like symptom (4) Breast cancer, stage 2 . "Provider Documentation" section prepared by Berta Barnhart. . VTE Core Measure Inpt VTE Proph given/why not?: SCD's
[2017-03-14 15:37] VITALS: BP 115/77; PULSE 90; TEMP 36.5; O2SAT 96
--- NOTE | 2017-03-14 18:19 | Discharge Summary ---
Discharge Summary Date of Service Mar 14, 2017. Discharge Summary Admission Date: Mar 14, 2017 at 01:53 Discharge Date: Mar 14, 2017 Discharge Disposition: Acute care facility Principal Diagnosis: Intracranial Mass Secondary Diagnoses/Problems: Please see H&P and Hospital Progress note Admission Information HPI (per Admitting provider): DATE OF ADMISSION: 03/14/2017 PRIMARY CARE PHYSICIAN: Luis Antonio Ingram MD CHIEF COMPLAINT: Disoriented as per records. HISTORY OF PRESENT ILLNESS: History obtained from patient, , and records. Limited history obtained from the patient secondary to aphasia. Medical history significant of breast cancer, left, status post surgery, radiation, chemotherapy, hormonal therapy. Patient was found to have adenocarcinoma of the left breast in November 2014. She subsequently underwent surgery, radiation, chemotherapy, and hormonal therapy. Last PET scan in January 2015 showed no metabolically active lesions Noted anywhere else about 3-4 mm right upper lobe nodule noted. CT chest, abdomen, pelvis 08/2016 1. Two small pulmonary nodules again noted, stable in size since the prior CT. 2. Stable size of right paraspinal cystic mass at T7 level. Consider continued attention on the follow up studies. 3. No new enlarged thoracic lymph nodes. 4. Postoperative changes of left mastectomy with a small residual fluid collection which has decreased in size since the prior exam. Bilateral breast mammogram November 2016 showed new no new suspicious findings. Clinically well as per [place] [facility] [place] last week. Yesterday, patient had trouble driving. Later on, had trouble finding words, nonspecific headache. Patient's found her confused. No chest pain, no shortness of breath, no head trauma. At the Emergency Room, CT head initial read showed no intracranial hemorrhage, vasogenic edema involving the left parietal lobe with local mass effect. Recommend MRI. Unable to transfer patient to a tertiary hospital secondary to bed unavailability. Given Decadron in the ER for increased intracranial pressure from a possible brain tumor and given Keppra for seizure prophylaxis as per [facility] Neurosurgery recommendations. Patient currently able to talk more as per . MEDICAL HISTORY: As above. Colonoscopy in 2016 showed diverticulosis. SURGERIES: She has had an A port placement, breast surgery, foot surgery. HOME MEDICATIONS: Include aspirin and multivitamins. ALLERGIES: No known drug allergies. FAMILY HISTORY: Breast cancer and lung cancer. PERSONAL AND SOCIAL HISTORY: Past tobacco abuse. 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 REVIEW OF SYSTEMS: Could not be reliably obtained. PHYSICAL EXAMINATION: VITAL SIGNS: Blood pressure noted to be 121/88, pulse rate 80, RR 18, temperature 36.5, sats 95 on room air. GENERAL: Noted to be anxious, tearful, no respiratory distress, aphasic. SKIN: Normal color and warm. HEENT: [place] palpebral conjunctivae. No ptosis. Dry mucosa. NECK: Supple and nontender. CHEST: Clear to auscultation. No tenderness. HEART: Regular rate and rhythm. No murmur. ABDOMEN: Soft, nontender. EXTREMITIES: No edema. No gross deformities. No tenderness NEUROLOGIC: Aphasic. No pronator drift. ? field cut/neglect on the right side. LABORATORY STUDIES: Hemoglobin was noted to be 14.8, hematocrit 43.2, white cell count 7.9, platelets 249. Sodium 140, potassium 4.4, chloride 104, CO2 21, BUN 21, creatinine 0.5, glucose 106. EKG, as per my interpretation, rate 80, normal sinus rhythm, no ischemia. CT head as above. ASSESSMENT AND PLAN: 1. 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 2. Past tobacco abuse. PCU neurochecks. Decadron RTC for now. Keppra for seizure prophylaxis. MRI of the brain. Will likely need Oncology consultation regarding brain tumor workup/mx pending MRI results. (Patient known to Dr. Neville.) DVT prophylaxis, SCDs RE brain tumor. Full code. Patient's requesting updates from providers. Mr. Guillermo Gonzalez at [phone]. Hospital Course Intracranial Mass with surrounding Edema Aphasia, apraxia secondary to increased intracranial pressure Decadron RTC for now. Keppra for seizure prophylaxis. Likely primary as per Radiologist assessment and no evidence of Mets in CTs Discussed with Dr Neville -the oncologist Discussed with the patient and the Will transfer to Neurosurgery department in [place] today Past tobacco abuse. Smoke cessation-counselling DVT prophylaxis, SCDs RE brain tumor. Full code. Total time spent on discharge = 35 minutes This includes examination of the patient, discharge planning, medication reconciliation, and communication with other providers. Discharge Instructions Date of Service Mar 14, 2017. Admission Reason for Admission: Increased Intracranial Pressure Discharge Discharge Diagnosis / Problem: Intracraneal Mass Discharge Goals Goal(s): Prevent Disease Progression Activity Recommendations Activity Limitations: resume your previous activity . Instructions / Follow-Up Instructions / Follow-Up Please make an appointment with your PCP in 1 week following discharge Current Hospital Diet Patient's current hospital diet: Regular Diet Discharge Diet Recommended Diet: Regular Diet Pending Studies Studies pending at discharge: no Medical Emergencies . Who to Call and When: Medical Emergencies: If at any time you feel your situation is an emergency, please call 911 immediately. . Non-Emergent Contact Non-Emergency issues call your: Primary Care Provider . Past History Medical & Surgical History: (1) Increased intracranial pressure (2) Cerebral edema (3) Stroke-like symptom (4) Breast cancer, stage 2 . "Provider Documentation" section prepared by Berta Barnhart. . VTE Core Measure Inpt VTE Proph given/why not?: SCD's <Electronically signed by Berta Barnhart M.D.> Signed: 03/14/17 [id number] Signed: Additional Copies To Luis Antonio Ingram M.D.
[2017-03-14] MEDS ORDERED: LEVETIRACETAM 500 MG TAB PO SCH (21:00)
[2017-03-16] MEDS ORDERED: MULTIVITAMIN TAB PO SCH (09:00)
== END 2017-03-14 18:00 | disposition short-term general hospital (02) | DRG 102 ==
LOC: EDBD 23:02 → C.EDB 23:03 → C.2T 03-14 01:53 → ENRESERV 03-14 02:10
PROVIDERS: ADMIT Internal Medicine; ATTEND Internal Medicine
DX: G93.2 Benign intracranial hypertension (principal); G93.6 Cerebral edema; R47.01 Aphasia; R48.2 Apraxia; R29.708 NIHSS score 8; Z85.3 Personal history of malignant neoplasm of breast; Z87.891 Personal history of nicotine dependence; Z92.3 Personal history of irradiation; Z79.01 Long term (current) use of anticoagulants; Z79.82 Long term (current) use of aspirin

== ENCOUNTER 2017-03-18 19:12 | Emergency (ER) | payer OTHER, MEDICARE ==
[~2017-03-18] VITALS: Ht 162.6 cm; Wt 69.7 kg
[2017-03-18 19:15] VITALS: BP 127/76; PULSE 75; TEMP 36.2; O2SAT 97; Ht 162.6 cm; Wt 69.7 kg
--- NOTE | 2017-03-18 19:37 | EMERGENCY ROOM VISIT NOTE ---
History First contact with patient: 19:19 Chief Complaint: DENTAL PAIN Stated Complaint: NEED TO HAVE CROWN REPLACED ON TOOTH SURGERY Nursing Triage Summary: pt states she is heading for neuro surgery in [place] soon. states a temp tooth fell out last night. pt states she wants to make sure her teeth are secure before a potential intubation. History of Present Illness The patient is a 72 year old female who presents to the Emergency Room stating that her temporary crown is missing. The [facility] She was instructed that she is not to have anything loose in her mouth for the intubation. She states that a temporary crown fell off of her left upper tooth yesterday. She attempted to call her dentist but there was no one answering. She states there is another crown in the mouth that she would like to be checked. She denies any pain in the teeth. Review of Systems A complete 10 point review of systems was reviewed with the patient with pertinent positives and negatives as per history of present illness. All else were negative. Past Medical/Surgical History Medical Problems: (1) Breast cancer, stage 2 (2) Increased intracranial pressure Family History FHx: cancer Social History Smoking Status: Never Smoker Alcohol Use: none Drug Use: none Marital Status: Housing Status: lives with significant other Occupation Status: employed Current/Historical Medications Scheduled Aspirin (Aspirin), 1 TAB PO DAILY Multiple Vitamin (Multivitamin), 1 TAB PO 1-2x Week Physical Exam Vital Signs Date Time Temp Pulse Resp B/P (MAP) Pulse Ox O2 Delivery O2 Flow Rate FiO2 03/18/17 19:15 36.2 75 16 127/76 97 Room Air Physical Exam VITALS: Vitals are noted on the nurse's note and reviewed by myself. Vital signs stable. GENERAL: This is a 72-year-old female, in no acute distress, nondiaphoretic, well-developed well-nourished. MOUTH: There is a missing crown from one of the left upper molars. None of the teeth are loose. NEURO: Patient was alert and oriented to person place and time. Medical Decision & Procedures Medical Decision The patient was evaluated as above. There are no loose teeth on exam. She did lose a temporary crown and brought it with her. She was requesting that this be glued back in place. I explained to the patient that we do not have the proper tools to do this. She requested that we call the on-call dentist and I explained to her that this was not possible. As I was speaking with my attending, the patient was able to contact her dentist and requested to be discharged. The patient was discharged home in good condition. Medication Reconcilliation Current Medication List: was personally reviewed by me Blood Pressure Screening Patient's blood pressure: Normal blood pressure Impression Primary Impression: Loss of retention of dental crown Departure Information Dispostion Home / Self-Care Condition GOOD Referrals Luis Antonio Ingram M.D. (PCP) Patient Instructions My [facility] Additional Instructions Follow-up with her dentist.
[2017-03-18] MEDS ORDERED: OMEP40CA41 PO (19:43)
[2017-03-18] MEDS ORDERED: LEVE500T PO (19:43)
[2017-03-18] MEDS ORDERED: DXM/4 PO (19:43)
== END 2017-03-18 19:49 | disposition home or self-care (01) ==
LOC: C.EDB 19:14 → C.EDD 19:49
DX: K08.89 Other specified disorders of teeth and supporting structures (principal); D49.3 Neoplasm of unspecified behavior of breast; Z79.82 Long term (current) use of aspirin

== ENCOUNTER 2017-09-26 14:37 | Inpatient (IN) | payer OTHER, MEDICARE ==
[~2017-09-26] VITALS: Ht 162.6 cm; Wt 71.7 kg
[~2017-09-26 14:37] MED LIST changes: -ASPI1TAB83 PO; +DXM/4 PO; +LEVE500T PO; -MULTTAB58 PO; +OMEP40CA41 PO
--- NOTE | 2017-09-26 15:01 | DIAGNOSTIC IMAGING REPORT ---
CT OF THE HEAD WITHOUT CONTRAST CLINICAL HISTORY: Stroke symptoms. Metastatic breast cancer. COMPARISON STUDY: Head CT March 13, 2017 and MRI of the brain March 14, 2017. CT DOSE: 537.48 mGy.cm TECHNIQUE: Helical axial images of the head were obtained without IV contrast. Automated exposure control was utilized for the study. A dose lowering technique was utilized adhering to the principles of ALARA. FINDINGS: No acute intracranial hemorrhage is present. Patient is status post left parietal craniotomy. A 3.9 cm hypodensity within the left parietal lobe has markedly improved since exam of March 13, 2017. Sensitivity for detection of residual or recurrent tumor is diminished on this unenhanced exam. Ventricular system is normal. Basilar cisterns are patent. There are no extra-axial collections. There are no findings to suggest acute dural sinus thrombosis or acute territorial infarct. Suspected prominent perivascular space within the left basal ganglia is noted. There are no significant calvarial abnormalities. IMPRESSION: 1. No acute intracranial hemorrhage. 2. Status post interval left parietal craniotomy. 3.9 cm left parietal lobe hypodensity which has markedly improved since head CT of March 13, 2017 suggestive of interval resection/treatment. Sensitivity for detection of recurrent or residual tumor diminished on this noncontrast exam. Electronically signed by: Shade Lang M.D. 09/26/2017 2:59 PM Dictated Date/Time: 09/26/2017 2:53 PM
[2017-09-26] MEDS ORDERED: DEXAMETHASONE INJ 8 MG in SYRINGE 0 ML IV STA (15:05)
[2017-09-26] MEDS ORDERED: LEVETIRACETAM IV 500 MG in DEXTROSE 5% 100ML 100 ML IV STA (15:05)
[2017-09-26 15:16] LABS: HEMATOCRIT 43.8 % (37-47); HEMOGLOBIN 14.9 g/dL (12.0-16.0); MEAN CELL VOLUME 87.3 fL (80-100); MEAN CORPUSCULAR HEMOGLOBIN 29.7 pg (25-34); MEAN PLATELET VOLUME 8.9 fL (7.4-10.4); PLATELET COUNT 246 K/uL (130-400); RED CELL DISTRIBUTION WIDTH CV 13.8 % (11.5-14.5); RED CELL DISTRIBUTION WIDTH SD 43.8 fL (36.4-46.3); WHITE BLOOD COUNT 6.48 K/uL (4.8-10.8)
[2017-09-26] MEDS ORDERED: DEXAMETHASONE SOD INJ 4 MG/ML VIAL ONE (15:16)
[2017-09-26 15:23] LABS: INR 0.9 (0.9-1.1); PTT PATIENT 25.4 SECONDS (21.0-31.0)
[2017-09-26 15:34] LABS: ALBUMIN 3.5 gm/dl (3.4-5.0); CALCIUM 9.2 mg/dl (8.5-10.1); CREATININE 0.67 mg/dl (0.60-1.20); POTASSIUM 3.9 mmol/L (3.5-5.1); TOTAL PROTEIN 6.9 gm/dl (6.4-8.2)
--- NOTE | 2017-09-26 16:21 | History and Physical ---
History & Physical Date & Time of Service: Sep 26, 2017 at 16:21 Chief Complaint: Trouble Speaking, Primary Care Physician: No Doctor, Assigned History of Present Illness Source: patient, clinic records, hospital records Patient is a 72-year-old female with PMH of metastatic breast cancer involving the left parietal region (s/p resection in March 2017 at [facility] [place] and post-op radiation) who presents with difficulty speaking and controlling motor function since early this afternoon. Due to patient's expressive aphasia, history was obtained primarily from at bedside. Patient was seen without any symptoms this morning at 8 AM before she went to work. She felt fine for most of her day at work and drove herself home around 1 PM. When returned to the house at 1:45 PM, noted that his had difficulty with speech and could not complete a sentence. She was also trying to make coffee and was having with coordination. notes that she had similar symptoms back in March due to edema from parieto-occipital mass that was then resected at [facility]. Had a follow-up MRI in July that showed expected postsurgical changes and no evidence of residual or recurrent tumor. Has been taking Keppra for seizure control since then and has been weaning off of the medication per instructions from Neuro Onc. Last dose of Keppra was 3 days ago. Denies any lightheadedness, confusion, visual changes , chest pain, shortness of breath, abdominal pain, nausea, vomiting, numbness or paresthesias. Feels frustrated that "her arms will not cooperate with her brain". gave patient 500 mg of Keppra in route to the ED. Past Medical/Surgical History Medical Problems: (1) Metastatic breast cancer Permanent Comment: Self detected left breast mass Status post fine-needle biopsy 11/20/2014 revealing invasive ductal carcinoma grade 3 Estrogen receptor negative, progesterone receptor negative, HER-2/darren positive Status post lumpectomy and sentinel lymph node biopsy 12/17/2014 Pathologic stage [id number] 6 cycles of chemotherapy TCH and then Herceptin for a total of one year Status post completion of radiation therapy 08/05/2015 received 6280 cGy Recurrent disease involving left parieto-occipital lobe in March 2017 s/p resection and radiation Status: Chronic Family History FHx: cancer Social History Smoking Status: Never Smoker Drug Use: none Marital Status: Occupational Status: employed Allergies Coded Allergies: No Known Allergies (Unverified , 09/26/17) Home Medications No Active Prescriptions or Reported Meds Review of Systems Ten systems reviewed and negative except as noted in the HPI. Physical Exam Vital Signs Date Time Temp Pulse Resp B/P (MAP) Pulse Ox O2 Delivery O2 Flow Rate FiO2 09/26/17 15:05 95 Room Air 09/26/17 15:05 Room Air 09/26/17 15:01 77 18 150/92 95 Room Air 09/26/17 15:00 78 09/26/17 14:43 36.4 90 18 136/93 97 Room Air General Appearance: WD/WN, + moderate distress (frustrated with expressive aphasia, difficulty following commands ) Head: normocephalic, atraumatic Eyes: normal inspection, PERRL, sclerae normal ENT: normal ENT inspection, hearing grossly normal, pharynx normal (Mucous membranes moist) Neck: supple, thyroid normal, trachea midline Respiratory/Chest: chest non-tender, lungs clear, normal breath sounds, no respiratory distress, no accessory muscle use Cardiovascular: regular rate, rhythm, no murmur, normal peripheral pulses Abdomen/GI: non tender, soft, no organomegaly Extremities/Musculoskelatal: normal inspection, no calf tenderness, no pedal edema Neurologic/Psych: alert, normal mood/affect, oriented x 3, + abnormal cerebellar tests (Dysmetria with right finger to nose), + aphasia, + motor weakness (Right upper extremity weakness ), + pertinent finding (Difficulty following commands throughout neuro exam. No facial droop noted. ) Skin: normal color, warm/dry, no rash Diagnostics Laboratory Results Results Past 24 Hours Test 09/26/17 14:47 09/26/17 15:00 Range/Units Bedside Glucose 94 70-90 mg/dl White Blood Count 6.48 4.8-10.8 K/uL Red Blood Count 5.02 4.2-5.4 M/uL Hemoglobin 14.9 12.0-16.0 g/dL Hematocrit 43.8 37-47 % Mean Corpuscular Volume 87.3 80-100 fL Mean Corpuscular Hemoglobin 29.7 25-34 pg Mean Corpuscular Hemoglobin Concent 34.0 32-36 g/dl RDW Standard Deviation 43.8 36.4-46.3 fL RDW Coefficient of Variation 13.8 11.5-14.5 % Platelet Count 246 130-400 K/uL Mean Platelet Volume 8.9 7.4-10.4 fL Prothrombin Time 9.7 9.0-12.0 SECONDS Prothromb Time International Ratio 0.9 0.9-1.1 Activated Partial Thromboplast Time 25.4 21.0-31.0 SECONDS Partial Thromboplastin Ratio 1.0 Sodium Level 140 136-145 mmol/L Potassium Level 3.9 3.5-5.1 mmol/L Chloride Level 106 98-107 mmol/L Carbon Dioxide Level 27 21-32 mmol/L Anion Gap 7.0 3-11 mmol/L Blood Urea Nitrogen 21 7-18 mg/dl Creatinine 0.67 0.60-1.20 mg/dl Est Creatinine Clear Calc Drug Dose 73.7 ml/min Estimated GFR () 101.8 Estimated GFR (Non- 87.8 BUN/Creatinine Ratio 32.0 10-20 Random Glucose 99 70-99 mg/dl Calcium Level 9.2 8.5-10.1 mg/dl Magnesium Level 2.1 1.8-2.4 mg/dl Total Bilirubin 0.4 0.2-1 mg/dl Aspartate Amino Transf (AST/SGOT) 15 15-37 U/L Alanine Aminotransferase (ALT/SGPT) 14 12-78 U/L Alkaline Phosphatase 84 45-117 U/L Total Protein 6.9 6.4-8.2 gm/dl Albumin 3.5 3.4-5.0 gm/dl Globulin 3.4 2.5-4.0 gm/dl Albumin/Globulin Ratio 1.0 0.9-[address] head: IMPRESSION: 1. No acute intracranial hemorrhage. 2. Status post interval left parietal craniotomy. 3.9 cm left parietal lobe hypodensity which has markedly improved since head CT of March 13, 2017 suggestive of interval resection/treatment. Sensitivity for detection of recurrent or residual tumor diminished on this noncontrast exam. Impression Assessment and Plan Patient is a 72-year-old female with PMH of metastatic breast cancer involving the left parietal region (s/p resection in March 2017 at [facility] [place] and post-op radiation) who presents with difficulty speaking and controlling motor function since early this afternoon. Expressive aphasia, RUE weakness -Symptoms began early this afternoon -Ddx: post-ictal state vs. recurrent brain met vs. ischemic stroke -Telestroke eval in ED, felt patient was in post-ictal state following a seizure at home -Given 500mg IV keppra and 8mg of Decadron -CT head without acute intracranial hemorrhage. Status post interval left parietal craniotomy -MRI brain combo, MRA head, MRA neck combo, EEG ordered -Seizure precautions, neuro checks -Keppra 500mg BID -Decadron 4mg Q6H -Neuro consulted Metastatic breast cancer -Fine-needle biopsy 11/20/2014 revealing invasive ductal carcinoma grade 3 -S/p surgery, chemotherapy, radiation and hormonal therapy -PET scan in January 2015 showed no metabolically active lesions -Recurrent disease involving left parieto-occipital lobe in March 2017 s/p resection and radiation -Repeat brain MRI in July 2017 with expected post-surgical changes. No evidence of residual or recurrent tumor -Scheduled for follow-up Neuro Onc appointment and brain MRI at [facility] in October Ppx: SCDs Code status: FULL PCP: Dispo: Admitted to telemetry Patient seen in collaboration with Dr. Cantor. Please see addendum. ADDENDUM: This is a 72 year old female with a past medical history of metastatic breast CA s/p tumor resection and radiation; she was on keppra and decadron post- operatively for prophylaxis; presents with altered mental status. She was at work - came home early due to not feeling well. She subsequently developed expressive aphasia, weakness. On presentation, stroke alert was called; due to recent tapering of Keppra, possibility of seizure arose. Plan: Admit to tele PT/OT/speech consulted MRI combo, MRA head/neck ordered EEG ordered Keppra 500mg BID ordered Decadron started neurology consulted Resuscitation Status VTE Prophylaxis Will order VTE Prophylaxis: Yes
--- NOTE | 2017-09-26 16:32 | EMERGENCY ROOM VISIT NOTE ---
History Report prepared by Kimberley: Edmond Zarate Under the Supervision of: Dr. Semaj Goodwin M.D. First contact with patient: 14:46 Chief Complaint: STROKE SYMPTOMS Stated Complaint: TROUBLE SPEAKING, Nursing Triage Summary: pt spouse answering questions in triage . pt laughs and unable to follow commands. unable to state date, where she is at, unable to follow command when ask to lift leg. spouse reports pt having difficulty talking and finding words. having trouble grasping items in hands History of Present Illness The patient is a 72 year old female who presents to the Emergency Room. 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 He states that the patient has been taking Keppra for seizure control, and has been weaning off of the medication per doctor's instructions. He states she stopped taking it 3 days ago. He reports that about 1.5 hours ago, the patient was experiencing similar symptoms to when she had edema from the tumor. He notes that she was having difficulty with speech and manipulating objects. He reports that her symptoms have been constant. He states that the last time he saw the patient without symptoms was around 08:00 this morning. He notes that the patient stated that she did not feel any symptoms while at work, and she drove herself home from work today. He states that the patient is not taking blood thinners. The patient denies any pain. Source of History: patient, spouse/significant other Onset: first seen with symptoms about 1.5 hours ago, normal at 08:00 this morning Position: other (global) Quality: other (difficulty with speech and object manipulation) Timing: constant Note: denies pain Review of Systems See HPI for pertinent positives & negatives. A total of 10 systems reviewed and were otherwise negative. Past Medical & Surgical Medical Problems: (1) Metastatic breast cancer Family History FHx: cancer Social History Smoking Status: Never Smoker Alcohol Use: none Drug Use: none Marital Status: Housing Status: lives with significant other Occupation Status: employed Current/Historical Medications No Active Prescriptions or Reported Meds Allergies Coded Allergies: No Known Allergies (Unverified , 09/26/17) Physical Exam Vital Signs Date Time Temp Pulse Resp B/P (MAP) Pulse Ox O2 Delivery O2 Flow Rate FiO2 09/26/17 15:48 81 18 140/92 96 Room Air 09/26/17 15:05 95 Room Air 09/26/17 15:05 Room Air 09/26/17 15:01 77 18 150/92 95 Room Air 09/26/17 15:00 78 09/26/17 14:43 36.4 90 18 136/93 97 Room Air Physical Exam GENERAL: Patient is in no acute distress. HEENT: No acute trauma, normocephalic atraumatic, mucous membranes moist, no nasal congestion, no scleral icterus. NECK: No stridor, no adenopathy, no meningismus, trachea is midline. LUNGS: Clear to auscultation bilaterally, no wheeze, no rhonchi, breath sounds equal. HEART: Without murmurs gallops or rubs, regular rate and rhythm. ABDOMEN: Soft, nontender, bowel sounds positive, no hernias, no peritonitis. EXTREMITIES: No cyanosis or edema, full range of motion of all the joints without pain or difficulty, no signs for acute trauma. NEUROLOGIC: Awake and alert. Expressive aphasia. Some difficulty following commands and performing tasks. No facial droop or speech slur. No extremity drift. SKIN: No rash, no jaundice, no diaphoresis. Medical Decision & Procedures ER Provider Diagnostic Interpretation: Radiology results as stated below per my review and radiologist interpretation: CT OF THE HEAD WITHOUT CONTRAST CLINICAL HISTORY: Stroke symptoms. Metastatic breast cancer. COMPARISON STUDY: Head CT March 13, 2017 and MRI of the brain March 14, 2017. CT DOSE: 537.48 mGy.cm TECHNIQUE: Helical axial images of the head were obtained without IV contrast. Automated exposure control was utilized for the study. A dose lowering technique was utilized adhering to the principles of ALARA. FINDINGS: No acute intracranial hemorrhage is present. Patient is status post left parietal craniotomy. A 3.9 cm hypodensity within the left parietal lobe has markedly improved since exam of March 13, 2017. Sensitivity for detection of residual or recurrent tumor is diminished on this unenhanced exam. Ventricular system is normal. Basilar cisterns are patent. There are no extra-axial collections. There are no findings to suggest acute dural sinus thrombosis or acute territorial infarct. Suspected prominent perivascular space within the left basal ganglia is noted. There are no significant calvarial abnormalities. IMPRESSION: 1. No acute intracranial hemorrhage. 2. Status post interval left parietal craniotomy. 3.9 cm left parietal lobe hypodensity which has markedly improved since head CT of March 13, 2017 suggestive of interval resection/treatment. Sensitivity for detection of recurrent or residual tumor diminished on this noncontrast exam. Electronically signed by: Shade Lang M.D. 09/26/2017 2:59 PM Dictated Date/Time: 09/26/2017 2:53 PM Laboratory Results 09/26/17 15:00 09/26/17 15:00 Test 09/26/17 14:47 09/26/17 15:00 Bedside Glucose 94 mg/dl (70-90) Red Blood Count 5.02 M/uL (4.2-5.4) Mean Corpuscular Volume 87.3 fL (80-100) Mean Corpuscular Hemoglobin 29.7 pg (25-34) Mean Corpuscular Hemoglobin Concent 34.0 g/dl (32-36) RDW Standard Deviation 43.8 fL (36.4-46.3) RDW Coefficient of Variation 13.8 % (11.5-14.5) Mean Platelet Volume 8.9 fL (7.4-10.4) Prothrombin Time 9.7 SECONDS (9.0-12.0) Prothromb Time International Ratio 0.9 (0.9-1.1) Activated Partial Thromboplast Time 25.4 SECONDS (21.0-31.0) Partial Thromboplastin Ratio 1.0 Anion Gap 7.0 mmol/L (3-11) Est Creatinine Clear Calc Drug Dose 73.7 ml/min Estimated GFR () 101.8 Estimated GFR (Non- 87.8 BUN/Creatinine Ratio 32.0 (10-20) Calcium Level 9.2 mg/dl (8.5-10.1) Magnesium Level 2.1 mg/dl (1.8-2.4) Total Bilirubin 0.4 mg/dl (0.2-1) Aspartate Amino Transf (AST/SGOT) 15 U/L (15-37) Alanine Aminotransferase (ALT/SGPT) 14 U/L (12-78) Alkaline Phosphatase 84 U/L (45-117) Total Protein 6.9 gm/dl (6.4-8.2) Albumin 3.5 gm/dl (3.4-5.0) Globulin 3.4 gm/dl (2.5-4.0) Albumin/Globulin Ratio 1.0 (0.9-2) Laboratory results reviewed by me. Medications Administered Medications (Trade) Dose Ordered Sig/Benjamin Route Start Time Stop Time Status Last Admin Dose Admin Levetiracetam 500 mg/Dextrose 105 ml @ 420 mls/hr NOW STAT IV 09/26/17 15:05 09/26/17 15:19 DC 09/26/17 15:20 420 MLS/HR Dexamethasone Sodium Phosphate (Decadron Inj) 8 mg STK-MED ONCE .ROUTE 09/26/17 15:16 09/26/17 15:17 DC 09/26/17 15:20 8 MG ECG Per My Interpretation Indication: altered mental status Rate (beats per minute): 81 Rhythm: normal sinus Findings: other (No ST elevation. No PVCs.) ED Course 1444: The patient was evaluated in room B1. A complete history and physical exam was performed. 1505: Ordered Dexamethasone Sodium Phosphate 8 mg/Syringe 2 ml @ 1 mls/min IV, Levetiracetam 500 mg/Dextrose 105 ml @ 420 mls/hr IV 1515: I consulted Judith Bravo PA-C: [facility] Hospitalist. She will reevaluate the patient for hospitalization. Medical Decision Differential diagnosis: stroke, intracranial bleeding, edema , seizure, dehydration, electrolyte imbalance, anemia, infection There is no leukocytosis or concerning anemia. No significant electrolyte abnormality, kidney failure or hepatitis. EKG shows a normal sinus rhythm, no acute ischemia. Brain CT shows some edema in the area where her prior brain surgery was performed. No bleeding, no evidence for acute ischemic event by CT. On exam, the patient has some expressive aphasia, she has some difficulty at times following commands. No pronator drift or speech slur. As per her , this is how she presented back in March when the brain tumor was first found. The patient was made a stroke alert. She was given IV Keppra and IV Decadron. These medications were given as seizure was a concern, vasogenic edema was a concern. I spoke with the tele-stroke neurologist, patient is not a TPA candidate and her findings/presentation were thought secondary to seizure or edema, not acute stroke. The patient is to be hospitalized for further testing and workup. During her ER stay, she seemed to improve mentally, she was more capable of expressing herself. I spoke to the patient and case management. The on-call hospitalist was consulted. Medication Reconcilliation Current Medication List: was personally reviewed by me Blood Pressure Screening Patient's blood pressure: Elevated blood pressure referred to hospitalist Consults Time Called: 1511 Consulting Physician: Judith Bravo PA-C: [facility] Returned Call: 1514 I consulted Judith Bravo PA-C: [facility]. She will reevaluate the patient for hospitalization. Impression Primary Impression: Confusion Additional Impressions: Change in mental status Status post brain surgery Stroke-like symptoms Scribe Attestation The scribe's documentation has been prepared under my direction and personally reviewed by me in its entirety. I confirm that the note above accurately reflects all work, treatment, procedures, and medical decision making performed by me. Departure Information Dispostion Being Evaluated By Hospitalist Prescriptions No Active Prescriptions or Reported Meds Referrals Luis Antonio Ingram MD (PCP) Patient Instructions My [facility] Stroke History Time Last Known Well 1.5 hrs ago Stroke t-PA Criteria Reviewed Does NOT meet criteria for t-PA Reason t-PA Not Given Treatment not indicated Problem Qualifiers
[2017-09-26 17:45] VITALS: BP 132/90; PULSE 83; TEMP 36.6; O2SAT 93; Ht 162.6 cm; Wt 71.7 kg
[2017-09-26] MEDS: DEXAMETHASONE INJ 4 MG in SYRINGE 0 ML IV SCH (19:59)
[2017-09-26 20:04] VITALS: BP 124/85; PULSE 85; TEMP 36.5; O2SAT 94
[2017-09-26] MEDS ORDERED: LEVETIRACETAM IV 500 MG in DEXTROSE 5% 100ML 100 ML IV ONE (21:00)
--- NOTE | 2017-09-26 21:01 | DIAGNOSTIC IMAGING REPORT ---
MR ANGIOGRAM OF THE BRAIN CLINICAL HISTORY: Seizure. COMPARISON STUDY: CT of the brain dated 09/26/2017. TECHNIQUE: 3-D [id number] MR angiography of the intracranial circulation is performed. 3-D tumble views are created and assessed. IV contrast was not administered for this examination. FINDINGS: The internal carotid arteries are widely patent bilaterally, as are the anterior and middle cerebral arteries. The vertebrobasilar system and posterior cerebral arteries are widely patent. The vertebral arteries are codominant. There is no aneurysm, high-grade stenosis, or focal vessel cutoff seen throughout the intracranial circulation. IMPRESSION: Unremarkable MR angiogram of the brain. Electronically signed by: Semaj Stringer M.D. 09/26/2017 8:59 PM Dictated Date/Time: 09/26/2017 8:57 PM
[2017-09-26] MEDS ORDERED: GADAVIST IV PRN (21:15)
--- NOTE | 2017-09-26 21:58 | DIAGNOSTIC IMAGING REPORT ---
MRI OF THE BRAIN COMBO CLINICAL HISTORY: Seizure. COMPARISON STUDY: CT of the brain dated 09/26/2017. MRI of the brain dated 03/14/2017. TECHNIQUE: MRI of the brain was performed utilizing various T1 and T2-weighted sequences in the axial, sagittal, and coronal planes. Contrast-enhanced sequences were acquired following the administration of 7 cc of Gadavist. The Examination is performed using the seizure protocol. FINDINGS: Brain parenchyma: There are age-related involutional changes noting mild subcortical and periventricular microangiopathic disease. A focus of left parietal encephalomalacia is unchanged. Dural thickening and enhancement deep to the craniotomy site is likely on a postoperative basis. There is an 11 x 8 x 9 mm irregular enhancing focus of nodularity deep to the craniotomy site along the resection margin, best on coronal postcontrast image #19. This is nodular in configuration and highly concerning for recurrent/residual tumor. An additional 4 mm focus of nodularity is seen along the inferior aspect of the resection cavity on image #20. Significant T2 signal in amount is identified within the surrounding white matter. There is no hemorrhage or mass effect. There is no restricted diffusion typical for acute ischemia. No extra-axial fluid collection is seen. The cerebellar tonsils are normal in configuration. Ventricles, sulci, and cisterns: Prominent secondary to involutional change. Pituitary and sella: Unremarkable. Intracranial vasculature: Normal flow voids are maintained at the skull base. Orbits: The bony orbits are grossly intact. Orbital contents are normal in appearance noting bilateral ocular lens implants. Sinuses and mastoids: Clear. Calvarium: There is evidence of previous left parietal craniotomy. No destructive calvarial lesion is seen. Cervical cord: Partially visualized cervical spinal cord is normal in morphology and signal intensity. IMPRESSION: 1. There is no hemorrhage, mass effect, or evidence of acute ischemia. 2. Again seen are postoperative changes from left parietal craniotomy and tumor resection. 3. Dural thickening and enhancement deep to the craniotomy site is likely on a postoperative basis. 4. There is 11 mm concerning focus of irregular nodular enhancement along the resection margin deep to the craniotomy site. An additional 4 mm focus of enhancing nodularity is seen along the inferior margin of the resection cavity. The larger nodule is similar in appearance to the primary neoplasm seen on the 03/14/2017 examination and although this could potentially be treatment/radiation related, the appearance is highly concerning for recurrent/residual neoplasm. Correlation with any prior postoperative imaging is recommended. 5. No distant foci of abnormal enhancement are seen. Electronically signed by: Semaj Stringer M.D. 09/26/2017 9:56 PM Dictated Date/Time: 09/26/2017 9:47 PM
--- NOTE | 2017-09-26 22:00 | DIAGNOSTIC IMAGING REPORT ---
MR ANGIOGRAM OF THE NECK COMBO CLINICAL HISTORY: Seizure. COMPARISON STUDY: No priors. TECHNIQUE: Axial 3-D [id number] MR angiography of the neck is performed. Subsequently, following the IV administration of 7 cc of Gadavist. Coronal MR angiogram of the neck was performed to corroborate the findings. 3-D reformats are created and assessed. All measurements were calculated based on NASCET criteria. The examination is degraded by motion artifact. FINDINGS: Visualized portions of the thoracic aorta are normal in caliber. The aortic arch demonstrates standard 3-vessel anatomy. The subclavian arteries are widely patent bilaterally. The right common carotid artery is widely patent, as are the right internal and external carotid arteries. There is tortuosity of the distal right internal carotid artery. The left common carotid artery is widely patent, as are the left internal and external carotid arteries. The vertebral arteries are widely patent. The vertebral arteries are codominant. The visualized intracranial vessels at the skull base appear patent. IMPRESSION: Unremarkable MR angiogram of the neck. Electronically signed by: Semaj Stringer M.D. 09/26/2017 9:59 PM Dictated Date/Time: 09/26/2017 9:57 PM
[2017-09-26 23:39] VITALS: BP 126/88; PULSE 86; TEMP 36.6; O2SAT 94
[2017-09-27] MEDS: DEXAMETHASONE INJ 4 MG in SYRINGE 0 ML IV SCH ×3 (01:07→14:24)
[2017-09-27 04:51] VITALS: BP 119/84; PULSE 89; TEMP 36.6; O2SAT 94
[2017-09-27 07:00] LABS: HEMATOCRIT 42.5 % (37-47); MEAN CORPUSCULAR HEMOGLOBIN 30.4 pg (25-34); MEAN CORPUSCULAR HGB CONC 35.3 g/dl (32-36); MEAN PLATELET VOLUME 8.6 fL (7.4-10.4); PLATELET COUNT 215 K/uL (130-400); RED CELL DISTRIBUTION WIDTH CV 13.6 % (11.5-14.5); RED CELL DISTRIBUTION WIDTH SD 42.6 fL (36.4-46.3); WHITE BLOOD COUNT 9.97 K/uL (4.8-10.8)
[2017-09-27 07:37] LABS: CALCIUM 9.2 mg/dl (8.5-10.1); CREATININE 0.5 mg/dl (0.60-1.20); POTASSIUM 3.8 mmol/L (3.5-5.1)
[2017-09-27 08:00] VITALS: BP 121/79; PULSE 88; TEMP 37.1; O2SAT 94
[2017-09-27] MEDS: LEVETIRACETAM 500 MG TAB PO SCH ×2 (08:15→19:54)
--- NOTE | 2017-09-27 08:21 | Progress Note ---
Progress Note Date of Service Sep 27, 2017. Progress Note Subjective: Patient seen and examined at bedside. Patient reports that left arm symptoms and problems with speech have resolved since yesterday. Patient reports that she is able to walk in her room and does not have any problems with her balance. Patient denies pain symptoms. Patient denies visual deficits currently Physical Exam General: no acute distress Eyes: Extraocular movements intact Face: no apparent facial droop, face is symmetric, no tongue deviations Lungs: clear to auscultation bilaterally, wheezing Heart regular rate Abdomen: soft, nontender, positive bowel sounds Neuro/Extremities: no edema, muscle strength intact and equal bilaterally, finger to nose test without deficits, awake and alert and oriented, no noted aphasia Imaging Echocardiogram Study Date: 10/15/2015 01:35 PM Study Location: [facility] Interpretation Summary The examination is adequate to evaluate the referral indication. The left ventricular cavity size is normal. The LV wall thickness is normal. The left ventricular wall motion is normal. Calculated LV ejection Fraction = 62% (bi-plane method of discs). There is a small patent foramen ovale. There is small right to left shunt through the patent foramen ovale at rest by saline contrast injection. Compared to most recent previous study dated 07/09/2015, left ventricular function appears unchanged. Microcavitation injection suggests a patent foramen ovale with a small degree of [id number] shunt at rest. Microcavitation injection was not previously performed. CT head 09/26/17 1. No acute intracranial hemorrhage. 2. Status post interval left parietal craniotomy. 3.9 cm left parietal lobe hypodensity which has markedly improved since head CT of March 13, 2017 suggestive of interval resection/treatment. Brain MRI 09/26/17 1. There is no hemorrhage, mass effect, or evidence of acute ischemia. 2. Again seen are postoperative changes from left parietal craniotomy and tumor resection. 3. Dural thickening and enhancement deep to the craniotomy site is likely on a postoperative basis. 4. There is 11 mm concerning focus of irregular nodular enhancement along the resection margin deep to the craniotomy site. An additional 4 mm focus of enhancing nodularity is seen along the inferior margin of the resection cavity. The larger nodule is similar in appearance to the primary neoplasm seen on the examination and although this could potentially be treatment/radiation related, the appearance is highly concerning for recurrent/residual neoplasm. Correlation with any prior postoperative imaging is recommended. 5. No distant foci of abnormal enhancement are seen 09/26/17 Unremarkable MR angiogram of the neck Unremarkable MR angiogram of the neck 09/27/17 EEG results pending Assessment and Plan Patient is a 72-year-old female with PMH of metastatic breast cancer involving the left parietal region (s/p resection in March 2017 at [facility] [place] and post-op radiation) who presents with difficulty speaking and controlling motor function x 1 day On presentation, stroke alert was called; due to recent tapering of Keppra, possibility of seizure arose Work up for stroke vs seizure vs brain tumor recurrence Expressive aphasia, RUE weakness -Symptoms began 09/26/17 -Telestroke eval in ED, felt patient was in post-ictal state following a seizure at home -Given 500mg IV keppra and 8mg of Decadron in the ED -currently on Keppra 500mg BID and Decadron 4mg Q6H -symptoms appeared resolved on 09/27/17 -Brain MRI on 09/26/17 may have redemonstrated a neoplasm recurrence vs radiation changes " There is 11 mm concerning focus of irregular nodular enhancement along the resection margin deep to the craniotomy site. An additional 4 mm focus of enhancing nodularity is seen along the inferior margin of the resection cavity. The larger nodule is similar in appearance to the primary neoplasm seen on the examination and although this could potentially be treatment/radiation related, the appearance is highly concerning for recurrent/residual neoplasm." -review of radiology reports from outpatient MRI studies in 04/2017 and 06/2017 did not identify tumor recurrence and reports as postsurgical changes -Neuro consult appreciated -Continue Seizure precautions, neuro checks Metastatic breast cancer history -Fine-needle biopsy 11/20/2014 revealing invasive ductal carcinoma grade 3 -S/p surgery, chemotherapy, radiation and hormonal therapy -PET scan in January 2015 showed no metabolically active lesions -Recurrent disease involving left parieto-occipital lobe in March 2017 s/p resection and radiation -review of radiology reports from outpatient MRI studies in 04/2017 and 06/2017 did not identify tumor recurrence and reports as postsurgical changes -Scheduled for follow-up Neuro Onc appointment and brain MRI at [facility] [place] in October -will place hematology/oncology consult History of There is a small patent foramen ovale. (There is small right to left shunt through the patent foramen ovale at rest by saline contrast injection) in 2016 echocardiogram will obtain repeat echocardiogram Telemetry of normal sinus rhythm Lipid panel normal check HbA1c Active orders for PT/OT/speech evaluation DVT Ppx: SCDs Code status: FULL
[2017-09-27 09:19] LABS: HEMOGLOBIN A1C 5.5 % (4.5-5.6)
--- NOTE | 2017-09-27 10:26 | ECHOCARDIOGRAM REPORT ---
*NOTICE TO RECEIVING REPUBLICAN AGENCY This information is strictly Confidential and protected under [place] law. [place] law prohibits you from making any further disclosure of this information unless further disclosure is expressly permitted by the written consent of the person to whom it pertains or is authorized by law. A general authorization for the release of medical or other information is not sufficient for this purpose. Hospital accepts no responsibility if the information is made available to any other person, INCLUDING THE PATIENT. Interpretation Summary * Name: JERZY ROBLES Study Date: 09/27/2017 08:50 AM BP: 121/79 mmHg * Patient Location: C.2E\S\E209\S\1 HR: 88 * : 1945 (M/d/yyyy) Gender: Female Height: 64 in * Age: 72 yrs Ethnicity: CA Weight: 158 lb * Ordering Physician: Max Yu * Performed By: Aiyana Solorzano RDCS * * Reason For Study: RIGHT ARM WEAKNESS AND APHASIA, HISTORY OF SHUNT? 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 * Normal LV chamber size with mild concentric LVH. * Normal LV systolic function, EF 60-65%. * No segmental left ventricular wall motion abnormalities are noted. * Grade I diastolic dysfunction. * No significant valvular pathology. Procedure Details * A complete two-dimensional transthoracic echocardiogram was performed (2D, M-mode, Doppler and color flow Doppler). * The study was technically difficult. * A saline contrast injection was performed to assess for cardiac shunting. * The injection was performed through an intravenous line in the right arm. * The attending nurse who injected the saline contrast was MICKEY YOUNG RN. * A total of 40 cc of agitated saline was given. * A contrast injection of Definity was performed to improve assessment of LV function. * Contrast was injected into an intravenous site in the right arm. * One vial of Definity ultrasound contrast was diluted in normal saline to a total volume of 10 ml. A total of '3' ml of solution was administered during imaging. * Lot # [id number] of Definity utilized for procedure. * Expiration date 08/24. * The attending nurse who injected the contrast agent was MICKEY YOUNG RN. Left Ventricle * The left ventricle is normal in size. * There is mild concentric left ventricular hypertrophy. * Ejection Fraction = 60-65%. * Left ventricular systolic function is normal. * No segmental left ventricular wall motion abnormalities are noted. * The left ventricular wall motion is normal. Right Ventricle * The right ventricular cavity size is normal (basal dimension <4.2 cm in right ventricular apical 4-chamber view). * The right ventricular systolic function is normal as assessed by tricuspid annular plane systolic excursion (TAPSE) (normal >1.5 cm). Atria * The left atrial size is normal. * Right atrial size is normal. 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 Mitral Valve * The mitral valve is normal in structure and function. Tricuspid Valve * The tricuspid valve is normal in structure and function. Aortic Valve * The aortic valve is normal in structure and function. Pulmonic Valve * The pulmonary valve is not well seen, but the Doppler examination is normal without significant regurgitation or stenosis. Great Vessels * The aortic root is normal size. Pericardium/Pleural * There is no pericardial effusion. Left Ventricular Diastolic Function * Grade I diastolic dysfunction, (abnormal relaxation pattern). MMode 2D Measurements and Calculations IVSd 1.5 cm IVSs 1.8 cm LVIDd 3.8 cm LVIDs 2.3 cm LVPWd 0.89 cm LVPWs 1.8 cm IVS/LVPW 1.6 FS 39.8 % EDV(Teich) 61.0 ml ESV(Teich) 17.6 ml EF(Teich) 71.2 % EDV(cubed) 53.8 ml ESV(cubed) 11.7 ml EF(cubed) 78.2 % % IVS thick 21.7 % % LVPW thick 98.3 % LV mass(C)d 147.1 grams LV mass(C)dI 83.1 grams/m\S\2 LV mass(C)s 154.5 grams LV mass(C)sI 87.3 grams/m\S\2 SV(Teich) 43.4 ml SI(Teich) 24.5 ml/m\S\2 SV(cubed) 42.1 ml SI(cubed) 23.8 ml/m\S\2 ACS 1.3 cm asc Aorta Diam 3.3 cm LVOT diam 1.5 cm LVOT area 1.7 cm\S\2 LVAd ap4 28.7 cm\S\2 LVLd ap4 8.3 cm EDV(MOD-sp4) 81.1 ml EDV(sp4-el) 83.5 ml LVAs ap4 13.6 cm\S\2 LVLs ap4 6.6 cm ESV(MOD-sp4) 23.0 ml ESV(sp4-el) 23.8 ml EF(MOD-sp4) 71.6 % EF(sp4-el) 71.4 % LVAd ap2 24.3 cm\S\2 LVLd ap2 7.4 cm EDV(MOD-sp2) 66.1 ml EDV(sp2-el) 67.8 ml LVAs ap2 10.3 cm\S\2 LVLs ap2 6.0 cm ESV(MOD-sp2) 14.8 ml ESV(sp2-el) 15.2 ml EF(MOD-sp2) 77.6 % EF(sp2-el) 77.6 % LVLd %diff -13.03 % EDV(MOD-bp) 77.7 ml LVLs %diff -10.48 % ESV(MOD-bp) 19.5 ml EF(MOD-bp) 75.0 % SV(MOD-sp4) 58.1 ml SI(MOD-sp4) 32.8 ml/m\S\2 SV(MOD-sp2) 51.3 ml SI(MOD-sp2) 29.0 ml/m\S\2 SV(MOD-bp) 58.3 ml SI(MOD-bp) 32.9 ml/m\S\2 SV(sp4-el) 59.6 ml SI(sp4-el) 33.7 ml/m\S\2 SV(sp2-el) 52.6 ml SI(sp2-el) 29.7 ml/m\S\2 Doppler Measurements and Calculations MV E max christina 72.8 cm/sec MV A max christina 79.3 cm/sec MV E/A 0.92 MV dec time 0.26 sec Ao V2 max 132.0 cm/sec Ao max PG 7.0 mmHg Ao max PG (full) -0.13 mmHg IRIS(V,A) 1.7 cm\S\2 IRIS(V,D) 1.7 cm\S\2 LV V1 max PG 7.1 mmHg LV V1 max 133.2 cm/sec PA V2 max 97.1 cm/sec PA max PG 3.8 mmHg TR max christina 236.4 cm/sec
--- NOTE | 2017-09-27 11:10 | EEG Procedure Note ---
EEG Procedure Note Date of Service Sep 27, 2017. Start / End Times Start Time: 7:12 AM End Time: 7:32 AM Referring Physician TIESHA Monteiro History This is a 72-year-old female who presents with acute change in mental status. Patient has known history of metastatic breast cancer status post removal of tumor from the left parietal area. EEG for further evaluation of possible seizure etiology for change in mental status. Home Medication List No Active Prescriptions or Reported Meds Inpatient Medication List Current Inpatient Medications Medications (Trade) Dose Ordered Sig/Benjamin Route Start Time Stop Time Status Last Admin Dose Admin Dexamethasone Sodium Phosphate 4 mg/Syringe 1 ml @ 1 mls/min Q6H IV 09/26/17 20:00 10/26/17 19:59 09/27/17 08:15 1 MLS/MIN Levetiracetam (Keppra Tab) 500 mg BID PO 09/27/17 09:00 10/27/17 08:59 09/27/17 08:15 500 MG Gadobutrol (Gadavist) 7 mmol UD PRN IV 09/26/17 21:15 09/30/17 21:14 Description This is a 21 electrode EEG with a single channel dedicated to limited EKG. The electrodes were placed in accordance with the International 10-20 system. At the start of the recording the patient was in an awake state. Background was well organized and composed of asymmetric mixed alpha and beta frequencies. There was a symmetric well-formed moderate amplitude 8-9 Hz posterior dominant rhythm that was reactive to eye opening and closure. Hyperventilation was not done. Intermittent photic stimulation at various frequencies produced no abnormalities. There was no state changes or sleep transients. There was continuous mild to moderate slowing over the left hemisphere with occasional sharp and sharply contoured waves maximal at T3/C3 Interpretation This is an abnormal routine EEG secondary to: 1) sharp and sharply contoured waves over the left central temporal area 2) continuous mild to moderate slowing over the left hemisphere There was no electrographic seizures. Clinical Correlation 1) left temporal sharp and sharply contoured waves indicate cortical irritability and likely increased seizure potential over the left central temporal area. 2) continuous slowing over the left hemisphere indicates structural or functional cerebral dysfunction of nonspecific etiology. This finding would be consistent with the patient's known area of tumor resection.
[2017-09-27 12:01] VITALS: BP 120/85; PULSE 80; TEMP 36.3; O2SAT 95
--- NOTE | 2017-09-27 12:53 | Medical Consult ---
Consultation Date of Consultation: Sep 27, 2017. Attending Physician: Max Yu M.D. 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 Gonzalez is a 72 yo F known to the consulting Med Onc service. She is a case of Left breast carcinoma (November,) S/P lumpectomy and sentinel node biopsy , T2 N0 M0, stage IIA ER and [place] receptor negative, Her2/Evan--> Positive. She is S/P adjuvant chemotherapy with TCH x 6, received 1st cycle of chemotherapy on 01/21/2015. She completed 1 year of Herceptin maintenance in December,. She then had metastatic disease involving the left parietal region (consistent with breast primary,(March,), S/P resection in Mar 2017. She had palliative XRT to left parietal lobe completed 04/27/2017. Per her neuro-oncology team, she was directed to taper off Keppra for 1 week starting on 09/18/17. She reported to [facility] ER yesterday after calling neuro-ocncology and PCP as her right hand "felt odd" and did not have typical fine motor task ability of this extremity. She also was having trouble with word/phrase recall. She was directed to call 911 and come to ER. brought her by private vehicle. She was evaluated for stroke, which was not favored. Her brain MRI showed possible recurrent disease at margin in left parietal region vs postradiation change, need outside scans for comparison. She took a Keppra 500 mg dose en route to hospital. She is on dex 4 mg q6h and Keppra 500 mg BID. Neurology consult is pending. Additional history obtained from the patient at bedside. She states the her right UE is improved, feels like fine motor task ability improved but not 100%. She states she has trouble still with word/phrase recall, but improved. She also feels depth perception is off. She denies headache. Yesterday, she did not have LOC, convulsions, bowel/bladder incontinence. She denies cough, dyspnea. She has no nausea, vomiting, abdominal pain, bowel issues. She denies chest pain , edema. No focal bone pain. Past Medical/Surgical History Medical Problems: (1) Cerebral edema Status: Acute (2) Change in mental status Status: Acute (3) Confusion Status: Acute (4) Loss of retention of dental crown Status: Acute (5) Stroke-like symptom Status: Acute (6) Stroke-like symptoms Status: Acute Social History Problems: (1) Status post brain surgery Status: Acute Family History FHx: cancer Social History Smoking Status: Never Smoker Drug Use: none Marital Status: Housing Status: lives with significant other Occupation Status: employed Allergies Coded Allergies: No Known Allergies (Unverified , 09/26/17) Current Inpatient Medications Current Inpatient Medications Medications (Trade) Dose Ordered Sig/Benjamin Route Start Time Stop Time Status Last Admin Dose Admin Dexamethasone Sodium Phosphate 4 mg/Syringe 1 ml @ 1 mls/min Q6H IV 09/26/17 20:00 10/26/17 19:59 09/27/17 08:15 1 MLS/MIN Levetiracetam (Keppra Tab) 500 mg BID PO 09/27/17 09:00 10/27/17 08:59 09/27/17 08:15 500 MG Gadobutrol (Gadavist) 7 mmol UD PRN IV 09/26/17 21:15 09/30/17 21:14 Review of Systems Constitutional: No fever, No chills, No weakness Eyes: No worsening of vision Respiratory: No cough, No shortness of breath Cardiovascular: No chest pain, No edema Abdomen: No pain, No nausea, No vomiting, No diarrhea, No constipation Musculoskeletal: No joint pain Genitourinary - Female: No urinary incontinence Neurologic: + problem reported (see HPI) Physical Exam Date Time Temp Pulse Resp B/P (MAP) Pulse Ox O2 Delivery O2 Flow Rate FiO2 09/27/17 12:01 36.3 80 18 120/85 (97) 95 Room Air 09/27/17 08:10 Room Air 09/27/17 08:00 37.1 88 18 121/79 (93) 94 Room Air 09/27/17 04:51 36.6 89 14 119/84 (96) 94 Room Air 09/27/17 00:00 Room Air 09/26/17 23:39 36.6 86 21 126/88 (101) 94 Room Air 09/26/17 20:04 36.5 85 12 124/85 (98) 94 Room Air 09/26/17 17:45 36.6 83 18 132/90 93 Room Air 09/26/17 17:36 78 18 124/83 94 09/26/17 16:45 79 18 121/88 92 Room Air 09/26/17 16:18 86 16 139/91 94 Room Air 09/26/17 15:48 81 18 140/92 96 Room Air 09/26/17 15:05 95 Room Air 09/26/17 15:05 Room Air 09/26/17 15:01 77 18 150/92 95 Room Air 09/26/17 15:00 78 09/26/17 14:43 36.4 90 18 136/93 97 Room Air General Appearance: WD/WN, no apparent distress Eyes: normal inspection, EOMI, + pertinent finding (horizontal nystagmus) ENT: hearing grossly normal Neck: no adenopathy Respiratory/Chest: lungs clear, normal breath sounds Cardiovascular: regular rate, rhythm, no edema Abdomen/GI: soft Extremities/Musculoskelatal: no calf tenderness 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 (except as noted in eye exam), alert , oriented x 3 Skin: no rash Laboratory Results Last 24 Hours Test 09/26/17 14:46 09/26/17 14:47 09/26/17 15:00 09/27/17 06:48 Hepatitis C Antibody Screen NEG Bedside Glucose 94 mg/dl White Blood Count 6.48 K/uL 9.97 K/uL Red Blood Count 5.02 M/uL 4.94 M/uL Hemoglobin 14.9 g/dL 15.0 g/dL Hematocrit 43.8 % 42.5 % Mean Corpuscular Volume 87.3 fL 86.0 fL Mean Corpuscular Hemoglobin 29.7 pg 30.4 pg Mean Corpuscular Hemoglobin Concent 34.0 g/dl 35.3 g/dl RDW Standard Deviation 43.8 fL 42.6 fL RDW Coefficient of Variation 13.8 % 13.6 % Platelet Count 246 K/uL 215 K/uL Mean Platelet Volume 8.9 fL 8.6 fL Prothrombin Time 9.7 SECONDS Prothromb Time International Ratio 0.9 Activated Partial Thromboplast Time 25.4 SECONDS Partial Thromboplastin Ratio 1.0 Sodium Level 140 mmol/L 142 mmol/L Potassium Level 3.9 mmol/L 3.8 mmol/L Chloride Level 106 mmol/L 109 mmol/L Carbon Dioxide Level 27 mmol/L 25 mmol/L Anion Gap 7.0 mmol/L 8.0 mmol/L Blood Urea Nitrogen 21 mg/dl 17 mg/dl Creatinine 0.67 mg/dl 0.50 mg/dl Est Creatinine Clear Calc Drug Dose 73.7 ml/min 98.8 ml/min Estimated GFR () 101.8 112.1 Estimated GFR (Non- 87.8 96.7 BUN/Creatinine Ratio 32.0 33.8 Random Glucose 99 mg/dl 128 mg/dl Calcium Level 9.2 mg/dl 9.2 mg/dl Magnesium Level 2.1 mg/dl Total Bilirubin 0.4 mg/dl Aspartate Amino Transf (AST/SGOT) 15 U/L Alanine Aminotransferase (ALT/SGPT) 14 U/L Alkaline Phosphatase 84 U/L Total Protein 6.9 gm/dl Albumin 3.5 gm/dl Globulin 3.4 gm/dl Albumin/Globulin Ratio 1.0 Estimated Average Glucose 111 mg/dl Hemoglobin A1c 5.5 % Triglycerides Level 41 mg/dl Cholesterol Level 175 mg/dl HDL Cholesterol 80 mg/dl LDL Cholesterol, Calculated 87 mg/dl VLDL Cholesterol, Calculated 8 mg/dl Cholesterol/HDL Ratio 2.2 Brain MRI from 09/26/17: . There is no hemorrhage, mass effect, or evidence of acute ischemia. 2. Again seen are postoperative changes from left parietal craniotomy and tumor resection. 3. Dural thickening and enhancement deep to the craniotomy site is likely on a postoperative basis. 4. There is 11 mm concerning focus of irregular nodular enhancement along the resection margin deep to the craniotomy site. An additional 4 mm focus of enhancing nodularity is seen along the inferior margin of the resection cavity. The larger nodule is similar in appearance to the primary neoplasm seen on the 03/14/2017 examination and although this could potentially be treatment/radiation related, the appearance is highly concerning for recurrent/residual neoplasm. Correlation with any prior postoperative imaging is recommended. 5. No distant foci of abnormal enhancement are seen. MRA head and neck form 09/26/17: Unremarkable CT head from 09/26/17: No acute ischemic findings. Assessment & Plan 1. Stage IV breast cancer with 2018 TUB WASHER metastasis to left parietal, s/p resection in Mar 2017 and XRT Apr 2017 2. Possible seizure activity started yesterday around 1300 * Advised patient on her imaging results, possible recurrence at margin of resection vs postradiation changes, radiology did not have comparison scans at time of reading * Patient is restarted Keppra 500 mg BID- continue * Patient is dexamethasone 4 mg q6h, no vasogenic edema appreciated on scan- recommendation to primary service to cut down dexamethasone to 4 mg once daily during duration of hospitalization and discharge per Dr. Neville * Pushing [facility] imaging to [email or web address] so Dr. Carr, neuro-onc could potentially review and give her expert opinion * Patient does not report 100% resolution of neurologic symptom- mainly issue with depth perception and word recall * Neurology consult pending * Patient will need outpatient follow up with neuro-oncology (recommend sooner than Oct 2017 appt) Thanks for the consult. Dr. Neville is the attending Medical oncologist- above plan is his recommendations. See his addendum.
--- NOTE | 2017-09-27 13:29 | Neurology Consultation ---
Neurology Consultation Date of Consultation: Sep 27, 2017. Attending Physician: Max Yu M.D. 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 She had palliative XRT to left parietal lobe completed 04/27/2017. She started weaning off Keppra 09/18/17. She reported to emergency dept yesterday after developing right hand dysfunction. She also was having speech difficulty. STroke alert was called in the ED. She did not receive TPA. Her brain MRI was negative for stroke and showed possible recurrent disease at margin in left parietal region vs postradiation change/ She was started on dexamethasone 4 mg q6h and Keppra 500 mg BID. Neurology consulted for further recommmendations. EEG was performed and reported to show focal slowing on the left with epileptiform activity. Patient currently reports feeling back to her baseline. She reports having some residual memory problems and word finding difficulty. Denies history of similar symptoms. She denies history of seizures. Past Medical/Surgical History Medical Problems: (1) Cerebral edema Status: Acute (2) Change in mental status Status: Acute (3) Confusion Status: Acute (4) Loss of retention of dental crown Status: Acute (5) Stroke-like symptom Status: Acute (6) Stroke-like symptoms Status: Acute Social History Problems: (1) Status post brain surgery Status: Acute Family History Family history of cancer Social History Drug Use: none Marital Status: Housing Status: lives with significant other Occupation Status: employed Allergies Coded Allergies: No Known Allergies (Unverified , 09/26/17) Current Inpatient Medications Current Inpatient Medications Medications (Trade) Dose Ordered Sig/Benjamin Route Start Time Stop Time Status Last Admin Dose Admin Dexamethasone Sodium Phosphate 4 mg/Syringe 1 ml @ 1 mls/min Q6H IV 09/26/17 20:00 10/26/17 19:59 09/27/17 08:15 1 MLS/MIN Levetiracetam (Keppra Tab) 500 mg BID PO 09/27/17 09:00 10/27/17 08:59 09/27/17 08:15 500 MG Gadobutrol (Gadavist) 7 mmol UD PRN IV 09/26/17 21:15 09/30/17 21:14 Review of Systems Neurologic: + memory loss, + weakness Physical Exam Vital Signs (Past 24 Hrs): Date Time Temp Pulse Resp B/P (MAP) Pulse Ox O2 Delivery O2 Flow Rate FiO2 09/27/17 12:01 36.3 80 18 120/85 (97) 95 Room Air 09/27/17 08:10 Room Air 09/27/17 08:00 37.1 88 18 121/79 (93) 94 Room Air 09/27/17 04:51 36.6 89 14 119/84 (96) 94 Room Air 09/27/17 00:00 Room Air 09/26/17 23:39 36.6 86 21 126/88 (101) 94 Room Air 09/26/17 20:04 36.5 85 12 124/85 (98) 94 Room Air 09/26/17 17:45 36.6 83 18 132/90 93 Room Air 09/26/17 17:36 78 18 124/83 94 09/26/17 16:45 79 18 121/88 92 Room Air 09/26/17 16:18 86 16 139/91 94 Room Air 09/26/17 15:48 81 18 140/92 96 Room Air 09/26/17 15:05 95 Room Air 09/26/17 15:05 Room Air 09/26/17 15:01 77 18 150/92 95 Room Air 09/26/17 15:00 78 09/26/17 14:43 36.4 90 18 136/93 97 Room Air EXAM: Constitutional: appearance normally developed, well nourished and non-obese Head and Face: normocephalic and atraumatic Eyes: normal lids, normal conjunctiva, fundi visualized and optic disks normal appearance Neck: supple Respiratory: normal effort Cardiovascular: regular rhythm and normal pulses Abdomen: non distended Skin: no rashes, lesions, or ulcers noted Psychiatric: normal judgement and insight, normal mood and normal affect NEUROLOGIC EXAMINATION: Appearance: no acute distress Opthalmoscopic: disc flat, normal fundus Carotid/Heart/Peripheral Vascular: no bruits, RRR Orientation: awake, alert and oriented x 3 Mental Status: alert Memory: registration 3/3 and recall 2/3 Attention:decreased Knowledge: appropriate Language: intermittent mild receptive aphasia Speech: no dysarthria Cranial Nerves: CN 2 - no visual defect on confrontation and pupils round, equal, reactive to light CN 3, 4, 6 - extra-ocular movements intact and no nystagmus CN 5 - facial sensation intact CN 7 - no facial asymmetry CN 8 - intact hearing CN 9, 10 - palate symmetric CN 11 - good shoulder shrug CN 12 - tongue midline Gait: stable, no ataxia and can perform tandem walking Coordination: no ataxia with finger to nose testing and heel to bergman testing Sensory: intact and symmetric to to light touch, no graphesthesia, some mild right sided neglect Muscle Tone: normal Muscle exam: Arm Right Left Leg Right Left Deltoid 5/5 5/5 Iliopsoas 5/5 5/5 Biceps 5/5 5/5 Quads 5/5 5/5 Triceps 5/5 5/5 Hamstrings 5/5 5/5 Wrist Extension 5/5 5/5 Ankle Dorsi Flexion 5/5 5/5 Wrist Flexion 5/5 5/5 Ankle Plantar Flexion 5/5 5/5 Interossei 5/5 5/5 Finger Flexors 5/5 5/5 Reflexes: Brachioradialis Biceps Triceps Patellar Achilles Plantars Reed's Right 0 0 0 Flexor Negative Left 0 0 0 Flexor Negative Laboratory Results Past 24 Hours: 09/27/17 06:48 09/27/17 06:48 Test 09/26/17 14:46 09/26/17 14:47 09/26/17 15:00 09/27/17 06:48 Hepatitis C Antibody Screen NEG (NEG) Bedside Glucose 94 mg/dl (70-90) Prothrombin Time 9.7 SECONDS (9.0-12.0) Prothromb Time International Ratio 0.9 (0.9-1.1) Activated Partial Thromboplast Time 25.4 SECONDS (21.0-31.0) Partial Thromboplastin Ratio 1.0 Magnesium Level 2.1 mg/dl (1.8-2.4) Total Bilirubin 0.4 mg/dl (0.2-1) Aspartate Amino Transf (AST/SGOT) 15 U/L (15-37) Alanine Aminotransferase (ALT/SGPT) 14 U/L (12-78) Alkaline Phosphatase 84 U/L (45-117) Total Protein 6.9 gm/dl (6.4-8.2) Albumin 3.5 gm/dl (3.4-5.0) Globulin 3.4 gm/dl (2.5-4.0) Albumin/Globulin Ratio 1.0 (0.9-2) Red Blood Count 4.94 M/uL (4.2-5.4) Mean Corpuscular Volume 86.0 fL (80-100) Mean Corpuscular Hemoglobin 30.4 pg (25-34) Mean Corpuscular Hemoglobin Concent 35.3 g/dl (32-36) RDW Standard Deviation 42.6 fL (36.4-46.3) RDW Coefficient of Variation 13.6 % (11.5-14.5) Mean Platelet Volume 8.6 fL (7.4-10.4) Anion Gap 8.0 mmol/L (3-11) Est Creatinine Clear Calc Drug Dose 98.8 ml/min Estimated GFR () 112.1 Estimated GFR (Non- 96.7 BUN/Creatinine Ratio 33.8 (10-20) Estimated Average Glucose 111 mg/dl Hemoglobin A1c 5.5 % (4.5-5.6) Calcium Level 9.2 mg/dl (8.5-10.1) Triglycerides Level 41 mg/dl (0-150) Cholesterol Level 175 mg/dl (0-200) HDL Cholesterol 80 mg/dl LDL Cholesterol, Calculated 87 mg/dl VLDL Cholesterol, Calculated 8 mg/dl Cholesterol/HDL Ratio 2.2 Imaging MRI Brain 09/26/2017: There is no hemorrhage, mass effect, or evidence of acute ischemia.2. Again seen are postoperative changes from left parietal craniotomy and tumor resection. 3. Dural thickening and enhancement deep to the craniotomy site is likely on a postoperative basis. 4. There is 11 mm concerning focus of irregular nodular enhancement along the resection margin deep to the craniotomy site. An additional 4 mm focus of enhancing nodularity is seen along the inferior margin of the resection cavity. The larger nodule is similar in appearance to the primary neoplasm seen on the 03/14/2017 examination and although this could potentially be treatment/radiation related, the appearance is highly concerning for recurrent/residual neoplasm. Correlation with any prior postoperative imaging is recommended. Impression Ms. Marilee Gonzalez is a 72 year old woman with history of metastatic breast carcinoma s/p resection of left parietal brain metastasis with residual mild receptive aphasia and right sided neglect on examine. She had an acute onset right hand dysfunction and speech difficulty yesteryda. Her MRI brain w/wo contrast reviewed. My impression is small area of contrast enhancement around tumor resection bed which is concerning for residual or tumor recurrence. Her EEG report shows focal left sided slowing and intermittent epileptiform discharges. Her transient symptoms of right handed dysfunction and speech difficultly are certainly concerning for symptomatic focal seizure. I agree with continuing Keppra 500 mg BID as she was previously on this dose and did well with no reported AE. She will likely need to continue Keppra indefinitely. I will defer to oncology in regards to her dexamethasone dosing. If they do not have a preference, I would recommend discontinuing Dexamethasone since her scan does not show significant vasogenic edema. Patient will need to follow up with her neuro-oncologist after discharge. Plan Continue Keppra 500 mg BID for probable symptomatic seizure. Dexamethasone dosing per oncology recs Follow up with Neuro-oncology in [place], [place] after discharge.
[2017-09-27 15:12] VITALS: BP 128/87; PULSE 77; TEMP 36.6; O2SAT 95
--- NOTE | 2017-09-27 17:58 | Hematology/Oncology Prog Note ---
Hematology/Onc Progress Note Date of Service Sep 27, 2017. Subjective I performed history and physical examination of the patient. ~I have discussed the patient's case, impression and plan with Naheed Higgins PA-C. Her note reflects my findings and plan. In summary, she is a 72-year-old female, a case of left breast carcinoma would recently diagnosed in 2014, S/P lumpectomy and adjuvant chemotherapy, now she has recurrent disease involving the brain involving the left parietal region, S/ P resection in March 2017, S/P radiation treatment to the left parietal lobe region completed on 04/27/2017. She was weaned off from Keppra recently about 10 days back. Now she is admitted for some speech difficulty, abnormal right hand moment. Brain MRI done on 09/26/2017 showed 1.1 cm irregular enhancing focus along the resection margin deep to the current resume site, additional 4 mm focus along the inferior margin of resection cavity. Larger nodular is in the similar appearance to the primary neoplasm seen in the previous imaging study done in March 2017. Blood workup stable, no neutropenia. Normal kidney and the liver function test noted. EEG showed focal slowing on the left with epileptiform activity. Restarted which Keppra, also started on oral Decadron and within short period of time, her symptoms improved, presently when I saw her at bedside, she did not have any similar symptoms of the right approximately, her speech was completely normal. Earlier she was seen by neuro-oncologist Dr. Carr at [facility], they planned for follow-up brain MRI soon (every 3 monthly), she reviewed her recent the brain MRI, recent brain MRI images are not concerning for progression, could be from radiation induced are necrotic changes. As there is no significant vasogenic edema, would like to taper down Decadron quickly. Decadron 4 mg once-a-day for 3 days and then 2 mg once a day for 3 days and then 1 mg once a day for 3 days and then discontinue Decadron. She will continue Keppra. She already has an appointment Dr. Carr on 2017. I spoke with the hospitalist regarding Decadron schedule in her case. Vaughn Neville MD Hem/Onc Vital Signs Vital Signs Past 12 Hours Date Time Temp Pulse Resp B/P (MAP) Pulse Ox O2 Delivery O2 Flow Rate FiO2 09/27/17 16:00 Room Air 09/27/17 15:12 36.6 77 21 128/87 (101) 95 Room Air 09/27/17 12:01 36.3 80 18 120/85 (97) 95 Room Air 09/27/17 08:10 Room Air 09/27/17 08:00 37.1 88 18 121/79 (93) 94 Room Air
[2017-09-27 19:50] VITALS: BP 126/84; PULSE 80; TEMP 36.6; O2SAT 94
[2017-09-27 23:37] VITALS: BP 121/96; PULSE 83; TEMP 36.6; O2SAT 94
[2017-09-28 03:33] VITALS: BP 114/75; PULSE 82; TEMP 36.6; O2SAT 96
[2017-09-28 06:51] VITALS: BP 110/76; PULSE 75; TEMP 36.7; O2SAT 98
[2017-09-28] MEDS: LEVETIRACETAM 500 MG TAB PO SCH (07:49)
[2017-09-28] MEDS ORDERED: LEVE500T13 PO (08:45)
[2017-09-28] MEDS ORDERED: DXM4 PO (08:45)
--- NOTE | 2017-09-28 08:53 | Progress Note ---
Internal Med Progress Note Date of Service: Sep 28, 2017. Provider Documentation: Subjective: Patient seen and examined at bedside. Patient denies speech deficits or aphasia. Denies extremity weakness. Denies pain or shortness of breath Physical Exam General: no acute distress Eyes: Extraocular movements intact Face: no apparent facial droop, face is symmetric, no tongue deviations Lungs: clear to auscultation bilaterally, wheezing Heart regular rate Abdomen: soft, nontender, positive bowel sounds Neuro/Extremities: no edema, muscle strength intact and equal bilaterally,awake and alert and oriented, no noted aphasia ASSESSMENT & PLAN: Imaging CT head 09/26/17 1. No acute intracranial hemorrhage. 2. Status post interval left parietal craniotomy. 3.9 cm left parietal lobe hypodensity which has markedly improved since head CT of March 13, 2017 suggestive of interval resection/treatment. Brain MRI 09/26/17 1. There is no hemorrhage, mass effect, or evidence of acute ischemia. 2. Again seen are postoperative changes from left parietal craniotomy and tumor resection. 3. Dural thickening and enhancement deep to the craniotomy site is likely on a postoperative basis. 4. There is 11 mm concerning focus of irregular nodular enhancement along the resection margin deep to the craniotomy site. An additional 4 mm focus of enhancing nodularity is seen along the inferior margin of the resection cavity. The larger nodule is similar in appearance to the primary neoplasm seen on the examination and although this could potentially be treatment/radiation related, the appearance is highly concerning for recurrent/residual neoplasm. Correlation with any prior postoperative imaging is recommended. 5. No distant foci of abnormal enhancement are seen 09/26/17 Unremarkable MR angiogram of the neck Unremarkable MR angiogram of the neck 09/27/17 EEG 1) left temporal sharp and sharply contoured waves indicate cortical irritability and likely increased seizure potential over the left central temporal area. 2) continuous slowing over the left hemisphere indicates structural or functional cerebral dysfunction of nonspecific etiology. This finding would be consistent with the patient's known area of tumor resection. Echocardiogram 09/27/17 * Technically limited bubble study with no obvious shunting, however, previous study of 10/15/15 documented a small patent forament ovale with small right to left shunt. * Normal LV chamber size with mild concentric LVH. * Normal LV systolic function, EF 60-65%. * No segmental left ventricular wall motion abnormalities are noted. * Grade I diastolic dysfunction. * No significant valvular pathology. Assessment and Plan Patient is a 72-year-old female with PMH of metastatic breast cancer involving the left parietal region (s/p resection in March 2017 at [facility] [place] [place] and post-op radiation) who presents with difficulty speaking and controlling motor function x 1 day On presentation, stroke alert was called; due to recent tapering of Keppra, possibility of seizure arose Work up for stroke vs seizure vs brain tumor recurrence Expressive aphasia, RUE weakness due to Seizure -Symptoms began 09/26/17 -Telestroke eval in ED, felt patient was in post-ictal state following a seizure at home -Given 500mg IV keppra and 8mg of Decadron in the ED was continued Keppra 500mg BID and Decadron 4mg Q6H -symptoms appeared resolved on 09/27/17 -Neurology service evaluated and diagnosis of symptoms due to Seizure as EEG report shows focal left sided slowing and intermittent epileptiform discharges and transient symptoms of right handed dysfunction and speech difficultly are certainly concerning for symptomatic focal seizure and that patient likely needs to be on Keppra indefinitely. Post surgical/radiation changes of the brain -Another main issue during this hospital stay is whether or not patient has brain tumor recurrence -As per admission Brain MRI: There is 11 mm concerning focus of irregular nodular enhancement along the resection margin deep to the craniotomy site. An additional 4 mm focus of enhancing nodularity is seen along the inferior margin of the resection cavity. The larger nodule is similar in appearance to the primary neoplasm seen on the 03/14/2017 examination and although this could potentially be treatment/radiation related, the appearance is highly concerning for recurrent/residual neoplasm -However review of radiology reports from outpatient MRI studies in 04/2017 and did not identify tumor recurrence and reports as postsurgical changes -On evening of 09/26/17: hemtalogy/oncology Dr. Neville informed hospitalist that Dr. Carr neuro-oncology from [facility] in [place] reviewed MRI images and that appearance of stable brain imaging and therefore may not be tumor recurrence. Dr. Neville also recommended steroid taper given no vasogenic edema and that patient should follow up as outpatient to the neuro-oncology ( brain tumor clinic) in [facility] in [place] Other Metastatic breast cancer history -Fine-needle biopsy 11/20/2014 revealing invasive ductal carcinoma grade 3 -S/p surgery, chemotherapy, radiation and hormonal therapy -PET scan in January 2015 showed no metabolically active lesions -Recurrent disease involving left parieto-occipital lobe in March 2017 s/p resection and radiation History of small patent foramen ovale. Echocardiogram 09/27/17 did not redemonstrate obvious shunting Was monitored on Telemetry and with normal sinus rhythm Lipid panel normal HbA1c 5.5 normal completed PT/OT/speech evaluations Discharge Diagnosis Seizure History of Metastatic Disease Aphasia and Motor weakness resolved Discharge Instructions Please Take Keppra as prescribed Please take Decadron prescription and start by tomorrow 4mg daily x 2 days, 2mg daily x 3 days, 1 mg daily x 3 days 10/04/2017 1:30 PM Kade Larios, [facility] 10/23/2017 8:30 AM MR3 [facility] [place] [place] MRI, [place] 10/23/2017 10:30 AM Brain Tumor Multidisciplinary Clinic Neurology, [facility] clinic appointment line was called to try to obtain earlier appointment to the brain tumor clinic at [place] Vital Signs: Date Time Temp Pulse Resp B/P (MAP) Pulse Ox O2 Delivery O2 Flow Rate FiO2 09/28/17 06:51 36.7 75 15 110/76 (87) 98 Room Air 09/28/17 03:33 36.6 82 15 114/75 (88) 96 Room Air 09/27/17 23:59 Room Air 09/27/17 23:37 36.6 83 18 121/96 (104) 94 Room Air 09/27/17 19:50 36.6 80 20 126/84 (98) 94 Room Air 09/27/17 16:00 Room Air 09/27/17 15:12 36.6 77 21 128/87 (101) 95 Room Air 09/27/17 12:01 36.3 80 18 120/85 (97) 95 Room Air
[2017-09-28] MEDS ORDERED: DEXAMETHASONE 4 MG TAB PO SCH (09:00)
[2017-09-28] MEDS ORDERED: DEXAMETHASONE INJ 4 MG in SYRINGE 0 ML IV SCH (09:00)
--- NOTE | 2017-09-28 09:12 | Discharge Instructions ---
Discharge Instructions Date of Service Sep 28, 2017. Admission Reason for Admission: Expressive Aphasia Discharge Discharge Diagnosis / Problem: Seizure, History of Metastatic Disease, Aphasia and weakness resolved Discharge Goals Goal(s): Improve disease control Activity Recommendations Activity Limitations: per Instructions/Follow-up section . Instructions / Follow-Up Instructions / Follow-Up Imaging CT head 09/26/17 1. No acute intracranial hemorrhage. 2. Status post interval left parietal craniotomy. 3.9 cm left parietal lobe hypodensity which has markedly improved since head CT of March 13, 2017 suggestive of interval resection/treatment. Brain MRI 09/26/17 1. There is no hemorrhage, mass effect, or evidence of acute ischemia. 2. Again seen are postoperative changes from left parietal craniotomy and tumor resection. 3. Dural thickening and enhancement deep to the craniotomy site is likely on a postoperative basis. 4. There is 11 mm concerning focus of irregular nodular enhancement along the resection margin deep to the craniotomy site. An additional 4 mm focus of enhancing nodularity is seen along the inferior margin of the resection cavity. The larger nodule is similar in appearance to the primary neoplasm seen on the examination and although this could potentially be treatment/radiation related, the appearance is highly concerning for recurrent/residual neoplasm. Correlation with any prior postoperative imaging is recommended. 5. No distant foci of abnormal enhancement are seen 09/26/17 Unremarkable MR angiogram of the neck Unremarkable MR angiogram of the neck 09/27/17 EEG 1) left temporal sharp and sharply contoured waves indicate cortical irritability and likely increased seizure potential over the left central temporal area. 2) continuous slowing over the left hemisphere indicates structural or functional cerebral dysfunction of nonspecific etiology. This finding would be consistent with the patient's known area of tumor resection. Echocardiogram 09/27/17 * Technically limited bubble study with no obvious shunting, however, previous study of 10/15/15 documented a small patent forament ovale with small right to left shunt. * Normal LV chamber size with mild concentric LVH. * Normal LV systolic function, EF 60-65%. * No segmental left ventricular wall motion abnormalities are noted. * Grade I diastolic dysfunction. * No significant valvular pathology. Assessment and Plan Patient is a 72-year-old female with PMH of metastatic breast cancer involving the left parietal region (s/p resection in March 2017 at [facility] and post-op radiation) who presents with difficulty speaking and controlling motor function x 1 day On presentation, stroke alert was called; due to recent tapering of Keppra, possibility of seizure arose Work up for stroke vs seizure vs brain tumor recurrence Expressive aphasia, RUE weakness due to Seizure -Symptoms began 09/26/17 -Telestroke eval in ED, felt patient was in post-ictal state following a seizure at home -Given 500mg IV keppra and 8mg of Decadron in the ED was continued Keppra 500mg BID and Decadron 4mg Q6H -symptoms appeared resolved on 09/27/17 -Neurology service evaluated and diagnosis of symptoms due to Seizure as EEG report shows focal left sided slowing and intermittent epileptiform discharges and transient symptoms of right handed dysfunction and speech difficultly are certainly concerning for symptomatic focal seizure and that patient likely needs to be on Keppra indefinitely. Post surgical/radiation changes of the brain -Another main issue during this hospital stay is whether or not patient has brain tumor recurrence -As per admission Brain MRI: There is 11 mm concerning focus of irregular nodular enhancement along the resection margin deep to the craniotomy site. An additional 4 mm focus of enhancing nodularity is seen along the inferior margin of the resection cavity. The larger nodule is similar in appearance to the primary neoplasm seen on the 03/14/2017 examination and although this could potentially be treatment/radiation related, the appearance is highly concerning for recurrent/residual neoplasm -However review of radiology reports from outpatient MRI studies in 04/2017 and did not identify tumor recurrence and reports as postsurgical changes -On evening of 09/26/17: hemtalogy/oncology Dr. Neville informed hospitalist that Dr. Carr neuro-oncology from [facility] in [place] reviewed MRI images and that appearance of stable brain imaging and therefore may not be tumor recurrence. Dr. Neville also recommended steroid taper given no vasogenic edema and that patient should follow up as outpatient to the neuro-oncology ( brain tumor clinic) in [facility] in [place] Other Metastatic breast cancer history -Fine-needle biopsy 11/20/2014 revealing invasive ductal carcinoma grade 3 -S/p surgery, chemotherapy, radiation and hormonal therapy -PET scan in January 2015 showed no metabolically active lesions -Recurrent disease involving left parieto-occipital lobe in March 2017 s/p resection and radiation History of small patent foramen ovale. Echocardiogram 09/27/17 did not redemonstrate obvious shunting Was monitored on Telemetry and with normal sinus rhythm Lipid panel normal HbA1c 5.5 normal completed PT/OT/speech evaluations Discharge Diagnosis Seizure History of Metastatic Disease Aphasia and Motor weakness resolved Discharge Instructions Please Take Keppra as prescribed Please take Decadron prescription and start by tomorrow 4mg daily x 2 days, 2mg daily x 3 days, 1 mg daily x 3 days 10/04/2017 1:30 PM Kade Larios DO [facility] 10/23/2017 8:30 AM MR3 [facility] MRI, [place] 10/23/2017 10:30 AM Brain Tumor Multidisciplinary Clinic [facility] clinic appointment line was called to try to obtain earlier appointment to the brain tumor clinic at [facility] Diet Patient's current hospital diet: Regular Diet Discharge Diet Recommended Diet: Regular Diet Pending Studies Studies pending at discharge: no Laboratory Results 09/27/17 06:48 09/27/17 06:48 Test 09/26/17 14:46 09/26/17 14:47 09/26/17 15:00 09/27/17 06:48 Hepatitis C Antibody Screen NEG (NEG) Bedside Glucose 94 mg/dl (70-90) Prothrombin Time 9.7 SECONDS (9.0-12.0) Prothromb Time International Ratio 0.9 (0.9-1.1) Activated Partial Thromboplast Time 25.4 SECONDS (21.0-31.0) Partial Thromboplastin Ratio 1.0 Magnesium Level 2.1 mg/dl (1.8-2.4) Total Bilirubin 0.4 mg/dl (0.2-1) Aspartate Amino Transf (AST/SGOT) 15 U/L (15-37) Alanine Aminotransferase (ALT/SGPT) 14 U/L (12-78) Alkaline Phosphatase 84 U/L (45-117) Total Protein 6.9 gm/dl (6.4-8.2) Albumin 3.5 gm/dl (3.4-5.0) Globulin 3.4 gm/dl (2.5-4.0) Albumin/Globulin Ratio 1.0 (0.9-2) Red Blood Count 4.94 M/uL (4.2-5.4) Mean Corpuscular Volume 86.0 fL (80-100) Mean Corpuscular Hemoglobin 30.4 pg (25-34) Mean Corpuscular Hemoglobin Concent 35.3 g/dl (32-36) RDW Standard Deviation 42.6 fL (36.4-46.3) RDW Coefficient of Variation 13.6 % (11.5-14.5) Mean Platelet Volume 8.6 fL (7.4-10.4) Anion Gap 8.0 mmol/L (3-11) Est Creatinine Clear Calc Drug Dose 98.8 ml/min Estimated GFR () 112.1 Estimated GFR (Non- 96.7 BUN/Creatinine Ratio 33.8 (10-20) Estimated Average Glucose 111 mg/dl Hemoglobin A1c 5.5 % (4.5-5.6) Calcium Level 9.2 mg/dl (8.5-10.1) Triglycerides Level 41 mg/dl (0-150) Cholesterol Level 175 mg/dl (0-200) HDL Cholesterol 80 mg/dl LDL Cholesterol, Calculated 87 mg/dl VLDL Cholesterol, Calculated 8 mg/dl Cholesterol/HDL Ratio 2.2 Hemoglobin A1c Test 09/27/17 06:48 Range/Units Estimated Average Glucose 111 mg/dl Hemoglobin A1c 5.5 4.5-5.6 % Lipid Panel Test 09/27/17 06:48 Range/Units Triglycerides Level 41 0-150 mg/dl Cholesterol Level 175 0-200 mg/dl HDL Cholesterol 80 mg/dl Cholesterol/HDL Ratio 2.2 LDL Cholesterol, Calculated 87 mg/dl Medical Emergencies . Who to Call and When: Medical Emergencies: If at any time you feel your situation is an emergency, please call 911 immediately. . Non-Emergent Contact Non-Emergency issues call your: Primary Care Provider, Specialist (neuro oncologist) Call Non-Emergent contact if: you have any medication questions . . "Provider Documentation" section prepared by Max Yu. .
--- NOTE | 2017-09-28 09:14 | Discharge Summary ---
Discharge Summary Date of Service Sep 28, 2017. Discharge Summary Admission Date: Sep 26, 2017 at 16:14 Discharge Date: Sep 28, 2017 Discharge Disposition: Home Principal Diagnosis: Seizure, History of Metastatic Disease, Aphasia and weakness resolved Medication Reconciliation New Medications: Dexamethasone (Dexamethasone) 4 Mg Tab 4 MG PO DAILY for 8 Days, #5 TAB take 4 mg daily x 2 days then take 2mg daily x 3 days then take 1 mg daily x 3 days Levetiracetam (Keppra) 500 Mg Tab 500 MG PO BID for 30 Days, #60 TAB Admission Information HPI (per Admitting provider): Patient is a 72-year-old female with PMH of metastatic breast cancer involving the left parietal region (s/p resection in March [address] [facility] and post-op radiation) who presents with difficulty speaking and controlling motor function since early this afternoon. Due to patient's expressive aphasia, history was obtained primarily from at bedside. Patient was seen without any symptoms this morning at 8 AM before she went to work. She felt fine for most of her day at work and drove herself home around 1 PM. When returned to the house at 1:45 PM, noted that his had difficulty with speech and could not complete a sentence. She was also trying to make coffee and was having with coordination. notes that she had similar symptoms back in March due to edema from parieto-occipital mass that was then resected at [facility]. Had a follow-up MRI in July that showed expected postsurgical changes and no evidence of residual or recurrent tumor. Has been taking Keppra for seizure control since then and has been weaning off of the medication per instructions from Neuro Onc. Last dose of Keppra was 3 days ago. Denies any lightheadedness, confusion, visual changes , chest pain, shortness of breath, abdominal pain, nausea, vomiting, numbness or paresthesias. Feels frustrated that "her arms will not cooperate with her brain". gave patient 500 mg of Keppra in route to the ED. Physical Exam (per Admitting): General Appearance: WD/WN, + moderate distress (frustrated with expressive aphasia, difficulty following commands ) Head: normocephalic, atraumatic Eyes: normal inspection, PERRL, sclerae normal ENT: normal ENT inspection, hearing grossly normal, pharynx normal (Mucous membranes moist) Neck: supple, thyroid normal, trachea midline Respiratory/Chest: chest non-tender, lungs clear, normal breath sounds, no respiratory distress, no accessory muscle use Cardiovascular: regular rate, rhythm, no murmur, normal peripheral pulses Abdomen/GI: non tender, soft, no organomegaly Extremities/Musculoskelatal: normal inspection, no calf tenderness, no pedal edema Neurologic/Psych: alert, normal mood/affect, oriented x 3, + abnormal cerebellar tests (Dysmetria with right finger to nose), + aphasia, + motor weakness (Right upper extremity weakness ), + pertinent finding (Difficulty following commands throughout neuro exam. No facial droop noted. ) Skin: normal color, warm/dry, no rash Hospital Course Imaging CT head 09/26/17 1. No acute intracranial hemorrhage. 2. Status post interval left parietal craniotomy. 3.9 cm left parietal lobe hypodensity which has markedly improved since head CT of March 13, 2017 suggestive of interval resection/treatment. Brain MRI 09/26/17 1. There is no hemorrhage, mass effect, or evidence of acute ischemia. 2. Again seen are postoperative changes from left parietal craniotomy and tumor resection. 3. Dural thickening and enhancement deep to the craniotomy site is likely on a postoperative basis. 4. There is 11 mm concerning focus of irregular nodular enhancement along the resection margin deep to the craniotomy site. An additional 4 mm focus of enhancing nodularity is seen along the inferior margin of the resection cavity. The larger nodule is similar in appearance to the primary neoplasm seen on the examination and although this could potentially be treatment/radiation related, the appearance is highly concerning for recurrent/residual neoplasm. Correlation with any prior postoperative imaging is recommended. 5. No distant foci of abnormal enhancement are seen 09/26/17 Unremarkable MR angiogram of the neck Unremarkable MR angiogram of the neck 09/27/17 EEG 1) left temporal sharp and sharply contoured waves indicate cortical irritability and likely increased seizure potential over the left central temporal area. 2) continuous slowing over the left hemisphere indicates structural or functional cerebral dysfunction of nonspecific etiology. This finding would be consistent with the patient's known area of tumor resection. Echocardiogram 09/27/17 * Technically limited bubble study with no obvious shunting, however, previous study of 10/15/15 documented a small patent forament ovale with small right to left shunt. * Normal LV chamber size with mild concentric LVH. * Normal LV systolic function, EF 60-65%. * No segmental left ventricular wall motion abnormalities are noted. * Grade I diastolic dysfunction. * No significant valvular pathology. Assessment and Plan Patient is a 72-year-old female with PMH of metastatic breast cancer involving the left parietal region (s/p resection in March [address] [facility] and post-op radiation) who presents with difficulty speaking and controlling motor function x 1 day On presentation, stroke alert was called; due to recent tapering of Keppra, possibility of seizure arose Work up for stroke vs seizure vs brain tumor recurrence Expressive aphasia, RUE weakness due to Seizure -Symptoms began 09/26/17 -Telestroke eval in ED, felt patient was in post-ictal state following a seizure at home -Given 500mg IV keppra and 8mg of Decadron in the ED was continued Keppra 500mg BID and Decadron 4mg Q6H -symptoms appeared resolved on 09/27/17 -Neurology service evaluated and diagnosis of symptoms due to Seizure as EEG report shows focal left sided slowing and intermittent epileptiform discharges and transient symptoms of right handed dysfunction and speech difficultly are certainly concerning for symptomatic focal seizure and that patient likely needs to be on Keppra indefinitely. Post surgical/radiation changes of the brain -Another main issue during this hospital stay is whether or not patient has brain tumor recurrence -As per admission Brain MRI: There is 11 mm concerning focus of irregular nodular enhancement along the resection margin deep to the craniotomy site. An additional 4 mm focus of enhancing nodularity is seen along the inferior margin of the resection cavity. The larger nodule is similar in appearance to the primary neoplasm seen on the 03/14/2017 examination and although this could potentially be treatment/radiation related, the appearance is highly concerning for recurrent/residual neoplasm -However review of radiology reports from outpatient MRI studies in 04/2017 and did not identify tumor recurrence and reports as postsurgical changes -On evening of 09/26/17: hemtalogy/oncology Dr. Neville informed hospitalist that Dr[facility] [place] reviewed MRI images and that appearance of stable brain imaging and therefore may not be tumor recurrence. Dr. Neville also recommended steroid taper given no vasogenic edema and that patient should follow up as outpatient to the neuro-oncology ( [facility] [place] Other Metastatic breast cancer history -Fine-needle biopsy 11/20/2014 revealing invasive ductal carcinoma grade 3 -S/p surgery, chemotherapy, radiation and hormonal therapy -PET scan in January 2015 showed no metabolically active lesions -Recurrent disease involving left parieto-occipital lobe in March 2017 s/p resection and radiation History of small patent foramen ovale. Echocardiogram 09/27/17 did not redemonstrate obvious shunting Was monitored on Telemetry and with normal sinus rhythm Lipid panel normal HbA1c 5.5 normal completed PT/OT/speech evaluations Discharge Diagnosis Seizure History of Metastatic Disease Aphasia and Motor weakness resolved Discharge Instructions Please Take Keppra as prescribed Please take Decadron prescription and start by tomorrow 4mg daily x 2 days, 2mg daily x 3 days, 1 mg daily x 3 days 10/04/2017 1:30 PM Kade Larios, [facility] 10/23/2017 8:30 AM MR[address] [facility] MRI, [place] 10/23/2017 10:30 AM Brain Tumor Multidisciplinary Clinic Neurology, [facility] appointment line was called to try to obtain earlier appointment to the brain tumor clinic at [place] Total time spent on discharge = 40 minutes This includes examination of the patient, discharge planning, medication reconciliation, and communication with other providers. Discharge Instructions see above
[2017-09-28 09:25] VITALS: BP 110/76; PULSE 75; TEMP 36.7; O2SAT 98
== END 2017-09-28 10:22 | disposition home or self-care (01) | DRG 101 ==
LOC: C.EDB 14:38 → C.2E 16:14 → EDBEDREQ 16:30 → ENRESERV 16:55 → C.2E 17:37
PROVIDERS: ADMIT Family Medicine; ATTEND Hospitalist
DX: G40.89 Other seizures (principal); R47.01 Aphasia; R41.4 Neurologic neglect syndrome; Q21.1 Atrial septal defect; M62.81 Muscle weakness (generalized); R41.0 Disorientation, unspecified; Z85.841 Personal history of malignant neoplasm of brain; Z85.3 Personal history of malignant neoplasm of breast; Z92.3 Personal history of irradiation; Z92.21 Personal history of antineoplastic chemotherapy

== ENCOUNTER 2018-07-27 20:42 | Inpatient (IN) ==
[2018-07-27 21:25] LABS: Basophils # (auto) 0.04 K/uL (0-0.2); Basophils % (auto) 0.6 %; Eosinophils # (auto) 0.12 K/uL (0-0.5); Eosinophils % (auto) 1.9 %; Hematocrit (blood only) 41.3 % (37-47); Hemoglobin 14.4 g/dL (12.0-16.0); Immature Granulocytes # (auto) 0.01 K/uL (0.00-0.02); Immature Granulocytes % (auto) 0.2 %; Lymphocytes # (auto) 2.62 K/uL (1.2-3.4); Lymphocytes % (auto) 42.3 %; Mean Corpuscular Hgb Conc 34.9 g/dL (32-36); Mean Corpuscular Volume 87.5 fL (80-100); Mean Platelet Volume 8.9 fL (7.4-10.4); Monocytes % (auto) 11.3 %; Neutrophils # (auto) 2.71 K/uL (1.4-6.5); Neutrophils % (auto) 43.7 %; Platelet Count 257 K/uL (130-400); RDW Coefficient of Variation 13.5 % (11.5-14.5); RDW Standard Deviation 43.4 fL (36.4-46.3); Red Blood Count 4.72 M/uL (4.2-5.4)
[2018-07-27 21:35] LABS: Partial Thromboplastin Ratio 0.9; Prothrombin Time 9.9 Seconds (9.0-12.0)
--- NOTE | 2018-07-27 21:41 | CT Scan Report ---
CT head/brain wo con CLINICAL HISTORY: aphasia/left hand incoordination eval for cva/bleed COMPARISON STUDY: CT scan dated 05/30/2018 TECHNIQUE: Axial CT of the brain is performed from the vertex to the skull base. IV contrast was not administered for this examination. A dose lowering technique was utilized adhering to the principles of ALARA. CT DOSE: 537.48 mGy.cm FINDINGS: There are new foci of vasogenic edema within the left hemisphere involving the left frontal lobe, lef t parietal lobe, left temporal lobe, left occipital lobe. The findings are concerning for multiple fo ci of metastatic disease. New areas of edema are also present within the right hemisphere with involv ement of the right frontal and right parietal lobes. There is no evidence of pathologic ventricular dilatation. There is no evidence of acute hemorrhage. There is no evidence of acute sinusitis. Post craniotomy ch anges are present on the left. IMPRESSION: 1. Interval development of multiple foci of vasogenic edema, suspicious for multifocal metastatic dep osits. An MRI might be considered in follow-up for further evaluation. 2. No evidence of acute hemorrhage Electronically signed by: Harshal Koehler M.D. 07/27/2018 9:39 PM
[2018-07-27 21:45] LABS: Alanine Aminotransferase 11 U/L (12-78); Albumin Level 3.5 gm/dl (3.4-5.0); Aspartate Aminotransferase 15 U/L (15-37); BUN Creatinine Ratio 35.6 (10-20); Blood Urea Nitrogen 25 mg/dl (7-18); Calcium 9.3 mg/dl (8.5-10.1); Carbon Dioxide 28 mmol/L (21-32); Chloride 107 mmol/L (98-107); Creatinine Clr Calc Pharmacy 68.5 ml/min; Est GFR (African American) 99.6; Glucose 92 mg/dl (70-99); Magnesium 2.2 mg/dl (1.8-2.4); Potassium 3.9 mmol/L (3.5-5.1); Sodium 143 mmol/L (136-145)
[2018-07-27 21:50] LABS: Albumin Globulin Ratio 1.1 (0.9-2); Alkaline Phosphatase 75 U/L (45-117); Bilirubin,Total 0.5 mg/dl (0.2-1); Globulin 3.1 gm/dl (2.5-4.0); Total Protein 6.6 gm/dl (6.4-8.2); Troponin I < 0.015 ng/ml (0-0.045)
--- NOTE | 2018-07-27 22:34 | XRay Report ---
XR chest 1V portable CLINICAL HISTORY: Metastatic disease COMPARISON STUDY: 05/30/2018 FINDINGS: The heart remains mildly enlarged. No suspicious point nodules are visualized. There is no failure. There are increased basilar markings likely atelectatic although an inflammatory process cou ld appear similar.[ IMPRESSION: 1. No pulmonary nodules identified 2. Nonspecific basilar opacities statistically atelectatic Electronically signed by: Harshal Koehler M.D. 07/27/2018 10:32 PM
[2018-07-27] MEDS ORDERED: DEXAMETHASONE SOD INJ 4 MG/ML VIAL IV STA (22:46)
--- NOTE | 2018-07-27 23:10 | History & Physical Report ---
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 Guzman) recommendations. Further management pending MRI brain results Neurology consult RE increased intracranial pressure, vasogenic edema from brain mets Continue Keppra regimen until seen by Neurology. DVT prophylaxis. SCDs RE brain mets Full code Patient's requesting updates from providers. Mr. Guillermo Gonzalez, contact #[phone]. History of Present Illness Chief Complaint: Worsening aphasia, RUE weakness as per Primary Care Provider: Kade Larios, History obtained from patient, family, and records. Limited history from patient secondary to aphasia. Medical history significant for breast cancer, left, status post surgery, radiation, chemotherapy, hormonal therapy with brain mets status post surgery, radiation. Recent confinement September 2017 for aphasia attributed to seizures related to Keppra taper. Patient discharged on Keppra 500 mg p.o. twice daily. About 2 months ago, patient complaining of achy headache symptoms relieved by 1 week of prednisone course. Intermittent headaches since as per . Recent ER visit for possible breakthrough seizure related to missed Keppra dose. Today patient noted by her to have worsening aphasia symptoms, right hand weakness, usual headache symptoms. No witnessed generalized tonic-clonic seizures as per . Patient compliant with home medications. At the ER, patient given IV Decadron as per [facility] Neurology recommendations. Medical History as above MRI brain May 2018 1. Linear enhancement along the margins of the left parietal resection cavity without abnormal perfusion or diffusion, favoring postoperative change. 2. Increased vasogenic edema in the left parietal white matter and splenium of the corpus callosum, likely related to radiation therapy. No new suspicious enhancement. 3. 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 Allergies Allergy/AdvReac Type Severity Reaction Status Date / Time No Known Allergies Allergy Unverified 05/30/18 14:39 Home Medications Home Medications Medication Instructions Recorded Confirmed Type levetiracetam 500 mg PO BID 12/27/17 07/27/18 History alendronate [Fosamax] 70 mg PO WK 05/30/18 07/27/18 History Past Med/Surg History Medical History Breast cancer History of cancer metastatic to brain History of seizure Surgical History History of brain surgery Family History Other Family history non-contributory Social History Preferred Language: Montserratian Communication Ability: Impaired Communication Ability Comment: Pt has aphasia at baseline-worse this evening Beliefs That Will Affect Care: None marital status: Current Living Situation: Spouse current occupational status: retired Other Information That Helps Us Care for You: No Feels Safe at Home: Yes Safety Concerns: Feels Safe At This Time Smoking Status: Former smoker Hx Alcohol Use: No Hx Substance Use: No Review of Systems Review of Systems: Could not be reliably obtained Physical Exam Physical Exam: GENERAL: Aphasic, pleasant, follows some commands, no respiratory distress SKIN: Normal color, warm HEENT: Sau[place] palpebral conjunctivae, no ptosis, dry buccal mucosa NECK : Supple, no tenderness CHEST : CTA, no tenderness HEART : RRR, no obvious murmurs ABDOMEN: Some distention, nontender EXTREMITIES : No LE swelling/tenderness, no other conspicuous deformities noted NEUROLOGIC : Aphasic, no facial asymmetry, MMTS BUE 4/5, LUE 5/5, negative pronator drift, gait and stance not assessed Results & Data Vital Signs (Past 12 Hours) Vital Signs Temp Pulse Pulse Resp BP BP Pulse Ox 07/27/18 22:01 73 27 H 121/82 94 07/27/18 21:46 72 17 123/83 96 07/27/18 21:37 75 20 122/87 96 07/27/18 21:36 77 21 122/87 94 07/27/18 21:09 94 07/27/18 20:54 85 22 128/93 92 07/27/18 20:53 83 18 128/93 94 07/27/18 20:43 36.6 C 86 18 119/88 96 Laboratory Results Laboratory Results WBC 6.20 K/uL (4.8-10.8) 07/27/18 21:10 RBC 4.72 M/uL (4.2-5.4) 07/27/18 21:10 Hgb 14.4 g/dL (12.0-16.0) 07/27/18 21:10 Hct 41.3 % (37-47) 07/27/18 21:10 MCV 87.5 fL (80-100) 07/27/18 21:10 MCH 30.5 pg (25-34) 07/27/18 21:10 MCHC 34.9 g/dL (32-36) 07/27/18 21:10 RDW Std Deviation 43.4 fL (36.4-46.3) 07/27/18 21:10 RDW Coeff of Ingrid 13.5 % (11.5-14.5) 07/27/18 21:10 Plt Count 257 K/uL (130-400) 07/27/18 21:10 MPV 8.9 fL (7.4-10.4) 07/27/18 21:10 Immature Gran % (Auto) 0.2 % 07/27/18 21:10 Neut % (Auto) 43.7 % 07/27/18 21:10 Lymph % (Auto) 42.3 % 07/27/18 21:10 Phelps % (Auto) 11.3 % 07/27/18 21:10 Eos % (Auto) 1.9 % 07/27/18 21:10 Baso % (Auto) 0.6 % 07/27/18 21:10 Immature Gran # (Auto) 0.01 K/uL (0.00-0.02) 07/27/18 21:10 Neut # (Auto) 2.71 K/uL (1.4-6.5) 07/27/18 21:10 Lymph # (Auto) 2.62 K/uL (1.2-3.4) 07/27/18 21:10 Phelps # (Auto) 0.70 K/uL (0.11-0.59) H 07/27/18 21:10 Eos # (Auto) 0.12 K/uL (0-0.5) 07/27/18 21:10 Baso # (Auto) 0.04 K/uL (0-0.2) 07/27/18 21:10 PT 9.9 Seconds (9.0-12.0) 07/27/18 21:10 INR 1.0 (0.9-1.1) 07/27/18 21:10 APTT 24.0 Seconds (21.0-31.0) 07/27/18 21:10 PTT Ratio 0.9 07/27/18 21:10 Sodium 143 mmol/L (136-145) 07/27/18 21:10 Potassium 3.9 mmol/L (3.5-5.1) 07/27/18 21:10 Chloride 107 mmol/L (98-107) 07/27/18 21:10 Carbon Dioxide 28 mmol/L (21-32) 07/27/18 21:10 Anion Gap 8.0 (3-11) 07/27/18 21:10 BUN 25 mg/dl (7-18) H 07/27/18 21:10 Creatinine 0.70 mg/dl (0.6-1.2) 07/27/18 21:10 Est Cr Clr Drug Dosing 68.5 ml/min 07/27/18 21:10 Est GFR ( Amer) 99.6 07/27/18 21:10 Est GFR (Non-Af Amer) 86.0 07/27/18 21:10 BUN/Creatinine Ratio 35.6 (10-20) H 07/27/18 21:10 Glucose 92 mg/dl (70-99) 07/27/18 21:10 POC Glucose 96 (70-99) 07/27/18 20:56 Calcium 9.3 mg/dl (8.5-10.1) 07/27/18 21:10 Magnesium 2.2 mg/dl (1.8-2.4) 07/27/18 21:10 Total Bilirubin 0.5 mg/dl (0.2-1) 07/27/18 21:10 AST 15 U/L (15-37) 07/27/18 21:10 ALT 11 U/L (12-78) L 07/27/18 21:10 Alkaline Phosphatase 75 U/L (45-117) 07/27/18 21:10 Troponin I < 0.015 ng/ml (0-0.045) 07/27/18 21:10 Total Protein 6.6 gm/dl (6.4-8.2) 07/27/18 21:10 Albumin 3.5 gm/dl (3.4-5.0) 07/27/18 21:10 Globulin 3.1 gm/dl (2.5-4.0) 07/27/18 21:10 Albumin/Globulin Ratio 1.1 (0.9-2) 07/27/18 21:10 Diagnostic Findings Chest x-ray: 1. No pulmonary nodules identified 2. Nonspecific basilar opacities statistically atelectatic CT head: 1. Interval development of multiple foci of vasogenic edema, suspicious for multifocal metastatic deposits. An MRI might be considered in follow-up for further evaluation. 2. No evidence of acute hemorrhage
[2018-07-28] MEDS ORDERED: LACTATED RINGER'S 1,000 ML IV ONE (01:01)
[2018-07-28] MEDS ORDERED: OXYCODONE HCL IR 5 MG TAB (IMMEDIATE RELEASE) PO PRN (01:01)
[2018-07-28] MEDS ORDERED: ACETAMINOPHEN 325 MG TAB PO PRN (01:01)
[2018-07-28] MEDS ORDERED: MoRPHine SULFATE 2 MG/ML CARP IV PRN (01:01)
[2018-07-28] MEDS ORDERED: PROMETHAZINE HCL 12.5 MG in SODIUM CHLORIDE 0.9% 50 ML IV PRN (01:01)
--- NOTE | 2018-07-28 01:33 | Emergency Department Note ---
Entered by Renee Tavares acting as a scribe for Alfredo Han MD History of Present Illness General Chief complaint: Neuro Symptoms/Deficit Stated complaint: HAVING SYMTOMS OF SEIZURE, HAD BRAIN SURGERY TWICE Source: family () History of Present Illness Onset (ago): hour(s) 1 Location: head Severity: similar to prior episodes Pain Consistency: + other (worsening) Quality: + other (neurological symptoms) Associated symptoms: + other (positive right hand "not working right"); no headaches The patient is a 73 year old female who presents to the Emergency Room with complaints of worsening neurological symptoms that began about one hour prior to arrival, per the patient's . The patient's states that the patient has aphasia at baseline, but states that this aphasia became worse after the patient began to complain of her right hand "not working right". The patient's states that the patient's symptoms are similar to prior episodes of seizure-like activity. The patient's states that the patient has breast cancer with metastases to her brain. The patient denies headache. The patient's states that the patient is not on blood thinners, but states that she is on Keppra, and states that she has not missed a dose. The patient's denies any falls or head trauma. The patient's history is limited secondary to aphasia. Home Medications Home Medications Medication Instructions Recorded Confirmed Type levetiracetam 500 mg PO BID 12/27/17 07/27/18 History alendronate [Fosamax] 70 mg PO WK 05/30/18 07/27/18 History Allergies Allergy/AdvReac Type Severity Reaction Status Date / Time No Known Allergies Allergy Unverified 05/30/18 14:39 Past Med/Surg History Medical History Breast cancer History of cancer metastatic to brain History of seizure Surgical History History of brain surgery Family History Other Family history non-contributory Social History Preferred Language: Serbian Communication Ability: Impaired Communication Ability Comment: Pt has aphasia at baseline-worse this evening Beliefs That Will Affect Care: None marital status: Current Living Situation: Spouse current occupational status: retired Other Information That Helps Us Care for You: No Feels Safe at Home: Yes Safety Concerns: Feels Safe At This Time Smoking Status: Former smoker Hx Alcohol Use: No Hx Substance Use: No Review of Systems The patient's history is limited secondary to aphasia. Physical Exam Vital Signs Vital Signs - 24 hr 07/27/18 20:43 07/27/18 20:53 07/27/18 20:54 Temperature 36.6 C Temperature Source Oral Sepsis Recent Fever Within 48 Hours No Sepsis Action Taken by Nursing No Action Required Pulse Rate 86 85 Pulse Rate [Apical] 83 Pulse Rate from SpO2 Sensor 85 Pulse Rhythm [Apical] Pulse Strength [Apical] Respiratory Rate 18 18 22 Respiratory Effort / Characteristics Non-Labored Spontaneous Respiratory Depth Normal Respiratory Pattern Regular Blood Pressure 119/88 128/93 Blood Pressure [Left Arm] 128/93 Blood Pressure Mean 98 104 Blood Pressure Mean [Left Arm] 104 Blood Pressure Position Sitting Pulse Oximetry 96 94 92 Oxygen Delivery Method Room Air Room Air 07/27/18 21:09 07/27/18 21:36 07/27/18 21:37 Temperature Temperature Source Sepsis Recent Fever Within 48 Hours Sepsis Action Taken by Nursing Pulse Rate 77 Pulse Rate [Apical] 75 Pulse Rate from SpO2 Sensor 77 Pulse Rhythm [Apical] Regular Pulse Strength [Apical] Normal Respiratory Rate 21 20 Respiratory Effort / Characteristics Non-Labored Respiratory Depth Normal Respiratory Pattern Regular Blood Pressure 122/87 Blood Pressure [Left Arm] 122/87 Blood Pressure Mean 98 Blood Pressure Mean [Left Arm] 98 Blood Pressure Position Pulse Oximetry 94 94 96 Oxygen Delivery Method Room Air Room Air 07/27/18 21:46 07/27/18 22:01 07/27/18 22:16 Temperature Temperature Source Sepsis Recent Fever Within 48 Hours Sepsis Action Taken by Nursing Pulse Rate 72 73 74 Pulse Rate [Apical] Pulse Rate from SpO2 Sensor 72 73 74 Pulse Rhythm [Apical] Pulse Strength [Apical] Respiratory Rate 17 27 H 17 Respiratory Effort / Characteristics Respiratory Depth Respiratory Pattern Blood Pressure 123/83 121/82 116/83 Blood Pressure [Left Arm] Blood Pressure Mean 96 95 94 Blood Pressure Mean [Left Arm] Blood Pressure Position Pulse Oximetry 96 94 94 Oxygen Delivery Method 07/27/18 22:31 07/27/18 22:46 07/27/18 23:01 Temperature Temperature Source Sepsis Recent Fever Within 48 Hours Sepsis Action Taken by Nursing Pulse Rate 80 77 82 Pulse Rate [Apical] Pulse Rate from SpO2 Sensor Pulse Rhythm [Apical] Pulse Strength [Apical] Respiratory Rate 16 22 17 Respiratory Effort / Characteristics Respiratory Depth Respiratory Pattern Blood Pressure 130/92 123/88 133/88 Blood Pressure [Left Arm] Blood Pressure Mean 104 99 103 Blood Pressure Mean [Left Arm] Blood Pressure Position Pulse Oximetry Oxygen Delivery Method 07/27/18 23:16 07/27/18 23:31 Temperature 36.7 C Temperature Source Oral Sepsis Recent Fever Within 48 Hours Sepsis Action Taken by Nursing Pulse Rate 76 75 Pulse Rate [Apical] 80 Pulse Rate from SpO2 Sensor Pulse Rhythm [Apical] Pulse Strength [Apical] Respiratory Rate 13 20 Respiratory Effort / Characteristics Non-Labored Spontaneous Respiratory Depth Normal Respiratory Pattern Blood Pressure 126/93 133/90 Blood Pressure [Left Arm] 133/90 Blood Pressure Mean 104 104 Blood Pressure Mean [Left Arm] 104 Blood Pressure Position Pulse Oximetry 98 Oxygen Delivery Method Room Air Constitutional: Vital signs reviewed. Eyes: Pupils are equal round reactive to light. Conjunctiva are noninjected. ENT: Pharynx is clear without erythema or exudate. Mucous membranes are moist. Neck supple without meningeal signs. Respiratory: Clear to auscultation bilaterally. Breath sounds are equal bilaterally. Cardiovascular: Regular rate and rhythm. No rubs or gallops. GI: Soft, nondistended and nontender. Bowel sounds are present. Musculoskeletal: No peripheral edema. No lower extremity tenderness. Integumentary: No cyanosis. Neurological: The patient is awake and alert. The patient follows some commands. No gross cranial nerve deficit. Motor is 5 out of 5 all extremities. Expressive and receptive aphasia. No pronator drift. Psychiatric: Unable to assess. Course 2105: Past medical records reviewed. The patient was evaluated in room C9. A complete history and physical exam was performed. 2225: Upon reevaluation, the patient has had no change in her symptoms. 2227: There is a page out to [facility] to discuss the patient's disposition. 2241: I discussed the case with Dr. Lopez Neurology who states that the patient can be further evaluated here at [facility], and recommends giving the patient 10 mg IV of Decadron right now. He recommends that the patient have 4 mg of Decadron twice a day over the next two weeks. 2255: I discussed the case with Dr. Valdez Hospitalist who accepts the patient for further evaluation. Consultations Consultation #1: I discussed the case with Dr. Lopez Neurology who states that the patient can be further evaluated here at [facility], and recommends giving the patient 10 mg IV of Decadron right now. He recommends that the patient have 4 mg of Decadron twice a day over the next two weeks. Time: 22:41 Consultation #2: I discussed the case with Dr. Valdez Hospitalist who accepts the patient for further evaluation. Time: 22:55 Administered Medications Discontinued Medications Dexamethasone (Decadron) 10 mg IV NOW STA Stop: 07/27/18 22:47 Last Admin: 07/28/18 00:25 Dose: 10 mg Documented by: [id number] Medical Decision Making Differential Diagnosis Differential diagnoses include CVA, TIA, intracranial mass, ICH, metastatic disease, and others were considered. Medical Records Attestation: I reviewed the patient's medical records. ( ) The patient was admitted in September 2017 for aphasia and weakness. The patient's MRI and MRA at this time showed possible recurrent neoplasm in the brain. The patient had a seizure at this time. She was discharged on Keppra and Decadron. The patient had a seizure in May of 2018 and was seen in the ED. A CT of the brain showed no acute process. An MRI showed left dural metastases. Home Medications Current Medication List: was personally reviewed by me Laboratory Data Attestation: I reviewed the patient's lab results. Result diagrams: 07/27/18 21:10 07/27/18 21:10 Lab Results 07/27/18 07/27/18 07/27/18 Range/Units 20:56 21:10 21:10 WBC 6.20 (4.8-10.8) K/uL RBC 4.72 (4.2-5.4) M/uL Hgb 14.4 (12.0-16.0) g/dL Hct 41.3 (37-47) % MCV 87.5 (80-100) fL MCH 30.5 (25-34) pg MCHC 34.9 (32-36) g/dL RDW Std Deviation 43.4 (36.4-46.3) fL RDW Coeff of Ingrid 13.5 (11.5-14.5) % Plt Count 257 (130-400) K/uL MPV 8.9 (7.4-10.4) fL Immature Gran % (Auto) 0.2 % Neut % (Auto) 43.7 % Lymph % (Auto) 42.3 % Greene % (Auto) 11.3 % Eos % (Auto) 1.9 % Baso % (Auto) 0.6 % Immature Gran # (Auto) 0.01 (0.00-0.02) K/uL Neut # (Auto) 2.71 (1.4-6.5) K/uL Lymph # (Auto) 2.62 (1.2-3.4) K/uL Greene # (Auto) 0.70 H (0.11-0.59) K/uL Eos # (Auto) 0.12 (0-0.5) K/uL Baso # (Auto) 0.04 (0-0.2) K/uL PT 9.9 (9.0-12.0) Seconds INR 1.0 (0.9-1.1) APTT 24.0 (21.0-31.0) Seconds PTT Ratio 0.9 Sodium (136-145) mmol/L Potassium (3.5-5.1) mmol/L Chloride (98-107) mmol/L Carbon Dioxide (21-32) mmol/L Anion Gap (3-11) BUN (7-18) mg/dl Creatinine (0.6-1.2) mg/dl Est Cr Clr Drug Dosing ml/min Est GFR ( Amer) Est GFR (Non-Af Amer) BUN/Creatinine Ratio (10-20) Glucose (70-99) mg/dl POC Glucose 96 (70-99) Calcium (8.5-10.1) mg/dl Magnesium (1.8-2.4) mg/dl Total Bilirubin (0.2-1) mg/dl AST (15-37) U/L ALT (12-78) U/L Alkaline Phosphatase (45-117) U/L Troponin I (0-0.045) ng/ml Total Protein (6.4-8.2) gm/dl Albumin (3.4-5.0) gm/dl Globulin (2.5-4.0) gm/dl Albumin/Globulin Ratio (0.9-2) Hepatitis C Ab Screen (Neg) 07/27/18 07/27/18 Range/Units 21:10 21:10 WBC (4.8-10.8) K/uL RBC (4.2-5.4) M/uL Hgb (12.0-16.0) g/dL Hct (37-47) % MCV (80-100) fL MCH (25-34) pg MCHC (32-36) g/dL RDW Std Deviation (36.4-46.3) fL RDW Coeff of Ingrid (11.5-14.5) % Plt Count (130-400) K/uL MPV (7.4-10.4) fL Immature Gran % (Auto) % Neut % (Auto) % Lymph % (Auto) % Greene % (Auto) % Eos % (Auto) % Baso % (Auto) % Immature Gran # (Auto) (0.00-0.02) K/uL Neut # (Auto) (1.4-6.5) K/uL Lymph # (Auto) (1.2-3.4) K/uL Greene # (Auto) (0.11-0.59) K/uL Eos # (Auto) (0-0.5) K/uL Baso # (Auto) (0-0.2) K/uL PT (9.0-12.0) Seconds INR (0.9-1.1) APTT (21.0-31.0) Seconds PTT Ratio Sodium 143 (136-145) mmol/L Potassium 3.9 (3.5-5.1) mmol/L Chloride 107 (98-107) mmol/L Carbon Dioxide 28 (21-32) mmol/L Anion Gap 8.0 (3-11) BUN 25 H (7-18) mg/dl Creatinine 0.70 (0.6-1.2) mg/dl Est Cr Clr Drug Dosing 68.5 ml/min Est GFR ( Amer) 99.6 Est GFR (Non-Af Amer) 86.0 BUN/Creatinine Ratio 35.6 H (10-20) Glucose 92 (70-99) mg/dl POC Glucose (70-99) Calcium 9.3 (8.5-10.1) mg/dl Magnesium 2.2 (1.8-2.4) mg/dl Total Bilirubin 0.5 (0.2-1) mg/dl AST 15 (15-37) U/L ALT 11 L (12-78) U/L Alkaline Phosphatase 75 (45-117) U/L Troponin I < 0.015 (0-0.045) ng/ml Total Protein 6.6 (6.4-8.2) gm/dl Albumin 3.5 (3.4-5.0) gm/dl Globulin 3.1 (2.5-4.0) gm/dl Albumin/Globulin Ratio 1.1 (0.9-2) Hepatitis C Ab Screen Neg (Neg) Imaging Data Radiologist's Impression: Radiology results as stated below per my review and the radiologist's interpretation: CT head/brain wo con CLINICAL HISTORY: aphasia/left hand incoordination eval for cva/bleed COMPARISON STUDY: CT scan dated 05/30/2018 TECHNIQUE: Axial CT of the brain is performed from the vertex to the skull base. IV contrast was not administered for this examination. A dose lowering technique was utilized adhering to the principles of ALARA. CT DOSE: 537.48 mGy.cm FINDINGS: There are new foci of vasogenic edema within the left hemisphere involving the left frontal lobe, left parietal lobe, left temporal lobe, left occipital lobe. The findings are concerning for multiple foci of metastatic disease. New areas of edema are also present within the right hemisphere with involvement of the right frontal and right parietal lobes. There is no evidence of pathologic ventricular dilatation. There is no evidence of acute hemorrhage. There is no evidence of acute sinusitis. Post craniotomy changes are present on the left. IMPRESSION: 1. Interval development of multiple foci of vasogenic edema, suspicious for multifocal metastatic deposits. An MRI might be considered in follow-up for further evaluation. 2. No evidence of acute hemorrhage Electronically signed by: Harshal Koehler M.D. 07/27/2018 9:39 PM XR chest 1V portable CLINICAL HISTORY: Metastatic disease COMPARISON STUDY: 05/30/2018 FINDINGS: The heart remains mildly enlarged. No suspicious point nodules are visualized. There is no failure. There are increased basilar markings likely atelectatic although an inflammatory process could appear similar.[ IMPRESSION: 1. No pulmonary nodules identified 2. Nonspecific basilar opacities statistically atelectatic Electronically signed by: Harshal Koehler M.D. 07/27/2018 10:32 PM ECG Data Attestation: I personally reviewed and interpreted this ECG as follows: Indication: other (stroke-like symptoms) Rate (beats per minute): 84 Rhythm: normal sinus Findings: no PVC and no ST elevation Blood Pressure Blood Pressure Findings: Normal blood pressure MDM Narrative I did evaluate the patient as noted above. I did obtain history from the patient's as the patient is aphasic. She appears grossly neurologically intact but it is difficult to tell as she does not follow all commands. She does move all extremities and does not appear to have weakness to the right hand. IV access was established. The patient was placed on a continuous monitor worker. I did order and personally review the patient's 12-lead EKG as described above. She has no evidence of acute ischemia. I did order and personally reviewed the images of the patient's chest x-ray as described above. No signs of pneumonia. She does have some atelectasis. I did order and review the patient's blood work as noted in the electronic medical record. CBC is unremarkable. She is not anemic. No elevation of her white blood cell count. Electrolytes are unremarkable. I did order a CT of the head. I did review the images myself as well as the radiology report as described above. She does have increased vasogenic edema consistent with metastatic disease. I did discuss the test results with the patient and her . She continues to have aphasia. I did discuss the case with the on-call neurologist at [facility] He did not feel the patient required emergent transfer and recommend the patient receive 10 mg of IV Decadron and and 4 mg twice daily for 2 weeks. He did feel hospitalization at this institution was reasonable. I did discuss the case with the hospitalist and ed case manager. I did treat the patient with Decadron 10 mg IV. Impression & Plan Vasogenic brain edema, Expressive aphasia, Incoordination of extremity Discharge Plan Visit Data *Final* Discharge Date/Time: 07/28/18 00:21 Chief Complaint: Neuro Symptoms/Deficit Stated Complaint: HAVING SYMTOMS OF SEIZURE, HAD BRAIN SURGERY TWICE ED Provider: Alfredo Han Discharge Problem: Vasogenic brain edema, Expressive aphasia, Incoordination of extremity Patient Disposition: Admitted As Inpatient Discharge Instructions Interventions: ED Discharge Assessment Last Done: 07/28/18 00:21 The scribe's documentation has been prepared under my direction and personally reviewed by me in its entirety. I confirm that the note above accurately reflects all work, treatment, procedures, and medical decision making performed by me.
[2018-07-28] MEDS ORDERED: levETIRAcetam 500 MG TAB PO SCH (09:00)
[2018-07-28] MEDS ORDERED: dexAMETHasone 4 MG TAB PO SCH (09:00)
[2018-07-28] MEDS ORDERED: GADOBUTROL 65ML VIAL IV PRN (10:22)
--- NOTE | 2018-07-28 10:51 | Magnetic Resonance Report ---
MRI OF THE BRAIN WITHOUT AND WITH IV CONTRAST CLINICAL HISTORY: Aphasia. Metastatic breast cancer. COMPARISON STUDY: MRI of the brain May 30, 2018. Head CT July 27, 2018. TECHNIQUE: Utilizing a 1.5 Daphne magnet and dedicated coil, multiplanar, multiecho imaging of the br ain was performed pre and postcontrast administration. IV administration of 7.5 mL of Gadavist contr ast was uneventful. Thin cut T1 post contrast imaging was performed with multiplanar reformats. FINDINGS: There are no foci of restricted diffusion to suggest acute infarct. No acute intracranial h emorrhage is present. 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 The metastases measure up to 1 cm in thick ness. Multiple sites of associated vasogenic edema are noted. There is mild mass effect with minimal rightward midline shift of 2 mm. The basilar cisterns are patent. There is no evidence for herniation at this time. A left parietal craniotomy site is unchanged in appearance. The resection cavity is si milar in appearance to prior exam. No calvarial lesions are identified. Flow-voids for the major intr acranial vessels are present. IMPRESSION: Significant progression of extensive dural metastases predominantly overlying the left cerebral and l eft cerebellar hemispheres since MRI of May 30, 2018. Interval development of multiple sites of vas ogenic edema with mild mass effect, including minimal rightward midline shift. No acute infarct. No a cute hemorrhage. Electronically signed by: Shade Lang M.D. 07/28/2018 10:49 AM
--- NOTE | 2018-07-28 15:04 | Hospitalist Progress Note ---
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 Interval development of multiple sites of vasogenic edema with mild mass effect, including minimal rightward midline shift. No acute infarct. No acute hemorrhage. started on Decadron 4mg po BID still has expressive aphasia may need to increase Decadron dose Dr. 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 SCDs RE brain mets Full code discussed with patient, and her they are agreeable, and comfortable with plan of care Subjective ff up for expressive aphasia, r upper extremity weakness seen resting in bed, not in distress patient's at bedside patient still has expressive aphasia occasionally gets easily confused reports right hand function is better denies other focal neuro deficits no headache, nausea/vomiting, dizziness denies chest pain, dyspnea, palpitations, dizziess Review of Systems Review of Systems: All systems reviewed & are unremarkable except as noted in HPI & below Physical Exam Physical Exam: General- oriented x 1, not in distress, speaks in sentences with no effort or accessory muscle use Head- atraumatic Eyes- PERRL, EOMI, anicteric ENT- oropharynx clear Neck- supple, no JVD, no adenopathy, no thyromegaly; carotids +2/2, no bruits appreciated Lungs- clear to auscultation bilaterally, no rales/wheezes Heart- normal rate, regular rhythm; no murmur, no gallop, no rub appreciated Abdomen- normal bowel sounds, nondistended, soft, nontender, no masses or hepatosplenomegaly Extremities- no pretibial edema, no calf tenderness; peripheral pulses intact Neuro- alert, oriented x 1; CN 2-12 grossly intact except for expressive aphasia; motor 5/5 bilaterally;sensation 100% on all extremities; no other gross focal neurologic deficits Skin- warm & dry Results & Data Vital Signs (Past 12 Hours) Vital Signs Temp Pulse Pulse Resp BP BP Pulse Ox 07/28/18 11:44 36.7 C 72 16 117/82 99 07/28/18 08:00 36.9 C 101 H 20 124/84 96 07/28/18 04:31 82 07/28/18 04:00 36.8 C 74 20 137/84 92
--- NOTE | 2018-07-28 15:18 | Communication Note ---
Date of Service: July 28, 2018 I have seen Mrs. Gonzalez today, reviewed her imaging studies, her history, and discussed the case with Dr. 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 The last imaging study in May did not show significant changes and she was continued off her Decadron and on the prophylactic Keppra that she had been taking for seizure prevention at a dosage of 500 mg twice a day Over the past weeks to perhaps a month or more she has had a decline in her mental status which correlates with what I think is a progressive a aphasia and has had increasing headaches lethargy and more of a right-sided weakness culminating in admission last night and performance of imaging studies that initially showed evidence for vasogenic edema on a CT scan and this has been subsequently confirmed by MRI showing in addition to the vasogenic edema, increased tumor bulk in the left meninges [place] was contacted last night and recommendations to place her on more Decadron were given and she is received several doses to date with some improvement noted by her No seizure activity has been reported Exam reveals a aphasia and mild right upper motor neuron facial asymmetry and slight drift of the right upper extremity all consistent with the diagnosis of increased size in her meningeal metastatic deposits and the presence of vasogenic edema involving left hemisphere At this point neurology does not have any further suggestions beyond those given by the neuro-oncology service of [place] and agree completely with reinstitution of Decadron, continuation of the Keppra, and discharge as soon as feasible depending on how the patient has done with a follow-up visit with Dr. Carr of neuro-oncology in [place] regarding further recommendations for treatment Neurology will be signing off the case at this point but will be happy to take a look at Mrs. Gonzalez should anything change between now and her discharge A full consultation has been dictated but has not been typed as yet Tommy Marquez MD
--- NOTE | 2018-07-28 15:54 | Consultation Report ---
DATE OF CONSULTATION: 07/28/2018 CONSULTATION FOR: Dr. Mederos. HISTORY OF PRESENT ILLNESS: The patient is 73 years old, is right-handed, is known to Kade Larios as her primary care physician whom was admitted to the Hospitalist Service last night for increasing aphasia and headaches over the past several weeks, occurring in the setting of known metastatic breast carcinoma to the left hemisphere and meninges, followed at [facility] by Dr. Carr and Neuro-Oncology Service and treated with local resection, then radiation therapy as outlined on the chart, the most recent treatment being in March of this year. The patient has been off Decadron, but has been on prophylactic Keppra 500 mg twice a day and may have actually had a breakthrough seizure in the past because of inadvertent missed dosing of the Keppra, but primary problem that prompted admission was increased lethargy, increased headache and more language disturbance consistent with an aphasia. She was admitted, evaluated. [facility] was actually consulted last night and recommendations were based on the CT scan that showed increasing amounts of vasogenic edema in the left hemisphere that she be placed back on Decadron and that her Keppra be maintained. I am seeing her now at therequest of Dr. Mederos and in the presence of her . She is awake,but clearly aphasic, recognizes me from prior contacts at her place of work and years ago in high school and she makes attempts to speak, but has some neologisms, paraphasias and relies on her quite a bit for translation of what I am saying and does not seem to totally comprehend what is going on. She has a mild right upper motor neuron facial paresis and perhaps a slight drift to the right upper extremity with eyes closed and hands outstretched, but otherwise examination is really pretty nonfocal with the exception of the language disturbance and a subtle right upper motor neuron paresis. I certainly find no head or eye deviation, no field cuts or indeed any other signs that the edema has spread posteriorly. An MRI has confirmed the presence of increasing dural metastases compared to the images of May of this year and also the presence of the vasogenic edema that was described on CAT scan. At this point, I have no further suggestions other than those given by the Oncology Service at [facility] last night by telephone, i.e., reinstitute Decadron at a dose of 4 mg twice a day and continue the Keppra. I would suggest that if she improves significantly over the next 24-48 hours to the point that she is getting close to her old baseline, her feels she can take her home and may not be an unwise decision to discharge her and then have her assessed somewhat earlier than her anticipated appointment in August by the Oncology Service at [facility] and certainly I would have the images either sent directly to [facility] if we can do so or placed on a CD, so Dr. Carr can review them. I am not sure what therapeutic options exist at this point. I suspect she has had the maximum radiation and may have had maximum surgical intervention she can, but again this is a decision up to the Neuro-Oncology Service and the Neurosurgery Service. I would be happy to look at her again if there are issues, but for now, I am going to sign off the case and will be happy to look at her as needed if things change during the current hospitalization. MTDDulce
--- NOTE | 2018-07-28 18:16 | Discharge Summary ---
Date of Service July 28, 2018 Admission HPI Per Admitting Provider History obtained from patient, family, and records. Limited history from patient secondary to aphasia. Medical history significant for breast cancer, left, status post surgery, radiation, chemotherapy, hormonal therapy with brain mets status post surgery, radiation. Recent confinement September 2017 for aphasia attributed to seizures related to Keppra taper. Patient discharged on Keppra 500 mg p.o. twice daily. About 2 months ago, patient complaining of achy headache symptoms relieved by 1 week of prednisone course. Intermittent headaches since as per . Recent ER visit for possible breakthrough seizure related to missed Keppra dose. Today patient noted by her to have worsening aphasia symptoms, right hand weakness, usual headache symptoms. No witnessed generalized tonic-clonic seizures as per . Patient compliant with home medications. At the ER, patient given IV Decadron as per [facility] [place]. Medical History as above MRI brain May 2018 1. Linear enhancement along the margins of the left parietal resection cavity without abnormal perfusion or diffusion, favoring postoperative change. 2. Increased vasogenic edema in the left parietal white matter and splenium of the corpus callosum, likely related to radiation therapy. No new suspicious enhancement. 3. 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 Admission Exam Per Admitting Provider GENERAL: Aphasic, pleasant, follows some commands, no respiratory distress SKIN: Normal color, warm HEENT: [place] palpebral conjunctivae, no ptosis, dry buccal mucosa NECK : Supple, no tenderness CHEST : CTA, no tenderness HEART : RRR, no obvious murmurs ABDOMEN: Some distention, nontender EXTREMITIES : No LE swelling/tenderness, no other conspicuous deformities noted NEUROLOGIC : Aphasic, no facial asymmetry, MMTS BUE 4/5, LUE 5/5, negative p ronator drift, gait and stance not assessed Principal Diagnosis Vasogenic edema from brain metastasis, history of breast cancer Discharge Exam General- oriented x 1, not in distress, speaks in sentences with no effort or accessory muscle use Head- atraumatic Eyes- PERRL, EOMI, anicteric ENT- oropharynx clear Neck- supple, no JVD, no adenopathy, no thyromegaly; carotids +2/2, no bruits appreciated Lungs- clear to auscultation bilaterally, no rales/wheezes Heart- normal rate, regular rhythm; no murmur, no gallop, no rub appreciated Abdomen- normal bowel sounds, nondistended, soft, nontender, no masses or hepatosplenomegaly Extremities- no pretibial edema, no calf tenderness; peripheral pulses intact Neuro- alert, oriented x 1; CN 2-12 grossly intact except for expressive aphasia; motor 5/5 bilaterally;sensation 100% on all extremities; no other gross focal neurologic deficits Skin- warm & dry Discharge Data Allergies Allergy/AdvReac Type Severity Reaction Status Date / Time No Known Allergies Allergy Unverified 05/30/18 14:39 Consultations 07/27/18 22:46 ED Decision to Admit Stat 07/28/18 01:01 Consult Neurology Routine 07/28/18 18:11 Burn CD for patient Stat Ordered Studies 07/27/18 21:14 CT head/brain wo con Stat CT head/brain wo con CLINICAL HISTORY: aphasia/left hand incoordination eval for cva/bleed COMPARISON STUDY: CT scan dated 05/30/2018 TECHNIQUE: Axial CT of the brain is performed from the vertex to the skull base. IV contrast was not administered for this examination. A dose lowering technique was utilized adhering to the principles of ALARA. CT DOSE: 537.48 mGy.cm FINDINGS: There are new foci of vasogenic edema within the left hemisphere involving the left frontal lobe, left parietal lobe, left temporal lobe, left occipital lobe. The findings are concerning for multiple foci of metastatic disease. New areas of edema are also present within the right hemisphere with involvement of the right frontal and right parietal lobes. There is no evidence of pathologic ventricular dilatation. There is no evidence of acute hemorrhage. There is no evidence of acute sinusitis. Post craniotomy changes are present on the left. IMPRESSION: 1. Interval development of multiple foci of vasogenic edema, suspicious for multifocal metastatic deposits. An MRI might be considered in follow-up for further evaluation. 2. No evidence of acute hemorrhage 07/28/18 01:01 MR brain wo/w con Routine MRI OF THE BRAIN WITHOUT AND WITH IV CONTRAST CLINICAL HISTORY: Aphasia. Metastatic breast cancer. COMPARISON STUDY: MRI of the brain May 30, 2018. Head CT July 27, 2018. TECHNIQUE: Utilizing a 1.5 Daphne magnet and dedicated coil, multiplanar, multiecho imaging of the brain was performed pre and postcontrast administration. IV administration of 7.5 mL of Gadavist contrast was uneventful. Thin cut T1 post contrast imaging was performed with multiplanar reformats. FINDINGS: There are no foci of restricted diffusion to suggest acute infarct. No acute intracranial hemorrhage is present. Extensive dural metastases pred ominantly overlying the left cerebral hemisphere have significantly increased since MRI of May 30, 2018. The metastases measure up to 1 cm in thickness. Multiple sites of associated vasogenic edema are noted. There is mild mass effect with minimal rightward midline shift of 2 mm. The basilar cisterns are patent. There is no evidence for herniation at this time. A left parietal craniotomy site is unchanged in appearance. The resection cavity is similar in appearance to prior exam. No calvarial lesions are identified. Flow-voids for the major intracranial vessels are present. IMPRESSION: Significant progression of extensive dural metastases predominantly overlying the left cerebral and left cerebellar hemispheres since MRI of May 30, 2018. Interval development of multiple sites of vasogenic edema with mild mass effect, including minimal rightward midline shift. No acute infarct. No acute hemorrhage. 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 Interval development of multiple sites of vasogenic edema with mild mass effect, including minimal rightward midline shift. No acute infarct. No acute hemorrhage. started on Decadron 4mg po BID still has expressive aphasia contacted Neuro-Oncologist in [place] to discuss case Discussed case with Dr. Ventura-recommend transfer to [facility] for further evaluation and management Discussed plan of care with patient's Mr. 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 SCDs RE brain mets Full code discussed with patient, and her they are agreeable, and comfortable with plan of care Total Time Total Time Spent Total Time Spent (In Minutes): 60 minutes Discharge Plan Discharge Items Patient Disposition: Home - Self-Care Reason For Visit: INCREASED ICP Discharge Diagnosis: Subjective edema secondary to progression of brain metastasis, history of breast cancer Discharge Goals: Diagnostic testing and Therapeutic intervention Activity: As commented below Activity Comment: FALL PRECAUTIONS, ALWAYS WITH ASSISTANCE Lifting: Wait until after follow-up appointment Exercise/Sports: Wait until after follow-up appointment Driving/Machine Use Comment: No driving Non-emergency contact: Primary Care Provider Call non-emergency contact if: you have any medication questions Follow-up/Referrals: Kade Larios, [Primary Care Provider] - Diet: Heart Healthy Addtl Provider Instructions: Please refer to accompanying hospital discharge summary Prescriptions: New dexamethasone 4 mg Tablet 4 mg PO BID 14 Days Qty: 28 RF: 0 Continued levetiracetam 500 mg tablet extended release 24 hr 500 mg PO BID RF: 0 alendronate [Fosamax] 70 mg Tablet 70 mg PO WK RF: 0 Stand-Alone Forms: [facility] Discharge Orders: Discharge Order (Routine); Ordered 07/28/18 Ordered By: Zach Mederos Admission Data Admit Date/Time: 07/27/18 23:58 Attending Provider: Zach Mederos Admit Provider: Kevin Bender Primary Care Provider: Kade Larios Other Providers: Kevin Bender ; Tommy Marquez Service: Telemetry Medical
== END 2018-07-28 08:45 | disposition short-term general hospital (02) | DRG 54 ==
LOC: ED 20:42 → 2N 23:58

== ENCOUNTER 2018-12-28 11:48 | Inpatient (IN) ==
[2018-12-28] MEDS ORDERED: SODIUM CHLORIDE 0.9% 1000ML 1,000 ML IV ONE ×2 (12:02→12:47)
--- NOTE | 2018-12-28 12:24 | Emergency Department Note ---
Entered by Renee Tavares acting as a scribe for History of Present Illness General Chief complaint: Altered Mental Status Time Seen by Provider: 12/28/18 11:49 Source: family ( ) History of Present Illness Onset (ago): hour(s) (this morning) Location: head Pain Consistency: + other (worsening ) Quality: + other (altered mental status and weakness) Associated symptoms: + other (positive aphasia; positive right-sided weakness; positive balance problems; positive leg swelling) The patient is a 73 year old female who presents to the Emergency Room with complaints of worsening altered mental status and weakness that began this morning, per the patient's . The patient's states that the patient is currently living at a rehab facility, [facility], after being in [place] for several days last week. The patient's states that the patient has had worsening aphasia, right-sided weakness, balance problems, and leg swelling over the past 6 weeks, and was found to have several small clots in her brain at [place] last week. The patient's states that at this time the patient began receiving Lovanox injections and was started on an antibiotic for a UTI. Per the patient's , it is believed that the emboli in the patient's brain are coming from her heart as she has a "pinhole" in her heart. 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 Home Medications Home Medications Medication Instructions Recorded Confirmed Type dexamethasone 4 mg PO BIDM 10/10/18 12/28/18 History levetiracetam 1,000 mg PO BID 10/10/18 12/28/18 History clonazepam 0.5 mg PO BID PRN 12/28/18 12/28/18 History divalproex 1,000 mg PO BID 12/28/18 12/28/18 History enoxaparin 80 mg SUBCUT Q12H 12/28/18 12/28/18 History furosemide 20 mg PO DAILY PRN 12/28/18 12/28/18 History omeprazole 20 mg PO DAILY 12/28/18 12/28/18 History Allergies Allergy/AdvReac Type Severity Reaction Status Date / Time No Known Allergies Allergy Verified 10/10/18 17:09 Past Med/Surg History Medical History Breast cancer CVA (cerebral vascular accident) Expressive aphasia (Acute) History of cancer metastatic to brain History of seizure Intracranial pressure increased Vasogenic brain edema Surgical History History of brain surgery History of mastectomy Family History Other Breast cancer Lung cancer Social History Preferred Language: Mohawk Communication Ability: Unable Communication Ability Comment: due to disease process 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 and A total of 10 systems reviewed and were otherwise negative Physical Exam Vital Signs Vital Signs - 24 hr 12/28/18 12:09 12/28/18 12:10 12/28/18 12:30 Temperature 37 C Temperature Source Rectal Pulse Rate 95 H Pulse Rate [Right Finger] Pulse Rhythm Regular Pulse Strength Normal Respiratory Rate 16 Respiratory Effort / Characteristics Respiratory Depth Normal Blood Pressure 83/71 L Blood Pressure [Right Arm] 60/0 L Blood Pressure Mean 75 Blood Pressure Mean [Right Arm] 20 Blood Pressure Position Lying Blood Pressure Position [Right Arm] Pulse Oximetry 93 93 Oxygen Delivery Method Room Air Room Air Sepsis Recent Fever Within 48 Hours No Sepsis New/Unexplained Change in Mental Status Yes Sepsis Action Taken by Nursing No Action Required 12/28/18 12:54 12/28/18 14:05 Temperature Temperature Source Pulse Rate Pulse Rate [Right Finger] 86 79 Pulse Rhythm Pulse Strength Respiratory Rate 12 14 Respiratory Effort / Characteristics Non-Labored Respiratory Depth Deep Deep Blood Pressure Blood Pressure [Right Arm] 98/81 L 133/56 L Blood Pressure Mean Blood Pressure Mean [Right Arm] 86 81 Blood Pressure Position Blood Pressure Position [Right Arm] Lying Lying Pulse Oximetry 97 Oxygen Delivery Method Room Air Room Air Sepsis Recent Fever Within 48 Hours Sepsis New/Unexplained Change in Mental Status Sepsis Action Taken by Nursing GENERAL: Patient is awake and looking around the room. She does not appear anxious. EYES: The conjunctivae are clear. The pupils are round and reactive. EARS, NOSE, MOUTH AND THROAT: The nose is without any evidence of any deformity. Mucous membranes dry. NECK: The neck is nontender and supple. RESPIRATORY: Shallow respirations were noted. There are rales at both bases. CARDIOVASCULAR: Regular rate and rhythm noted there no murmurs rubs or gallops normal S1 normal S2 GASTROINTESTINAL: The abdomen is soft. Abdomen is nontender. MUSCULOSKELETAL/EXTREMITIES: There is no evidence of gross deformity full range of motion is noted in the hips and shoulders SKIN: There is no obvious evidence of any rash. There are no petechiae, pallor or cyanosis noted. NEUROLOGIC: Patient is aphasic. The patient has a left gaze preference. The patient has weakness on the right upper and right lower extremity. Procedures Central Line Placement Right Femoral: Time Out Performed: Yes Patient Placed on Monitor/Pulse Ox: Yes MD Prep: mask, gown and gloves Central Line Prep: Chlorhexidine scrub and sterile drapes applied Ultrasound Used for Placement: Yes Central Line Lumen Inserted: triple Post Procedure: sutured in place, good blood return, all ports aspirated, flushed, capped and sterile dressing applied Patient Tolerated Procedure: well and no complications Complications: none Course Course 1154: Past medical records reviewed. The patient was evaluated in room C9. A complete history and physical exam was performed. 1256: I discussed the case with Rosalie Singer PA-C who accepts the patient under Dr. Hedrick Hospitalist service. 1306: I updated the patient's on all results. 1309: A central line was placed. Administered Medications Enoxaparin Sodium (Lovenox) 80 mg SQ Q12H MINERVA Stop: 01/27/19 17:59 Last Admin: 12/28/18 17:49 Dose: 80 mg Documented by: [id number] Potassium Chloride/Dextrose/Sod Cl (D5nss + 20meq Kcl) 20 meq in 1,000 mls @ 100 mls/hr IV .Q10H MINERVA Stop: 12/29/18 12:59 Last Admin: 12/28/18 17:38 Dose: 100 mls/hr Documented by: [id number] Valproic Acid 500 mg/ Dextrose 55 mls @ 55 mls/hr IV Q6H [place] Stop: 01/27/19 16:59 Last Admin: 12/28/18 17:39 Dose: 55 mls/hr Documented by: [id number] Dexamethasone Sodium Phosphate (4 mg/ Syringe) 1 mls @ 1 mls/min IV Q6H [facility]A Stop: 01/27/19 16:59 Last Admin: 12/28/18 17:44 Dose: 1 mls/min Documented by: [id number] Vancomycin HCl 2,000 mg/ (Sodium Chloride) 540 mls @ 200 mls/hr IV TODAY@1700 ONE Stop: 12/28/18 19:41 Last Admin: 12/28/18 17:43 Dose: 200 mls/hr Documented by: [id number] Piperacillin Sod/Tazobactam (Sod 3.375 gm/ Dextrose) 115 mls @ 28.75 mls/hr IV Q8H MINERVA; Protocol Stop: 12/30/18 13:59 Last Admin: 12/28/18 17:45 Dose: 28.8 mls/hr Documented by: [id number] Discontinued Medications Dextrose (Dextrose 50%) 50 ml IV NOW STA Stop: 12/28/18 14:47 Last Admin: 12/28/18 15:14 Dose: Not Given Documented by: [id number] Dextrose (Dextrose 50%) 50 ml IV NOW ONE Stop: 12/28/18 14:49 Last Admin: 12/28/18 15:00 Dose: 50 ml Documented by: [id number] Sodium Chloride (Nss 1000ml) 1,000 mls @ 999 mls/hr IV .Q1H1M ONE Stop: 12/28/18 13:02 Last Infusion: 12/28/18 13:43 Dose: 0 mls/hr Documented by: [id number] Admin: 12/28/18 12:20 Dose: 999 mls/hr Documented by: [id number] Sodium Chloride (Nss 1000ml) 1,000 mls @ 999 mls/hr IV .Q1H1M ONE Stop: 12/28/18 13:47 Last Infusion: 12/28/18 14:02 Dose: 0 mls/hr Documented by: [id number] Admin: 12/28/18 13:00 Dose: 999 mls/hr Documented by: [id number] Piperacillin Sod/Tazobactam Sod (Zosyn) 4.5 gm in 120 mls @ 240 mls/hr IV NOW ONE Stop: 12/28/18 13:16 Last Infusion: 12/28/18 13:43 Dose: 0 mls/hr Documented by: [id number] Admin: 12/28/18 13:00 Dose: 240 mls/hr Documented by: [id number] Lactated Ringer's (Lr) 1,000 mls @ 999 mls/hr IV .Q1H1M ONE Stop: 12/28/18 15:17 Last Infusion: 12/28/18 15:40 Dose: 0 mls/hr Documented by: [id number] Admin: 12/28/18 14:34 Dose: 999 mls/hr Documented by: [id number] Levetiracetam 1,000 mg/ (Dextrose) 110 mls @ 440 mls/hr IV NOW STA Stop: 12/28/18 14:49 Last Infusion: 12/28/18 15:39 Dose: 0 mls/hr Documented by: [id number] Admin: 12/28/18 15:14 Dose: 440 mls/hr Documented by: [id number] Critical Care Time Critical Care Time: Yes Total Critical Care Time: 63 I have personally spent 63 minutes of critical care time in the direct management of this patient. This includes bedside care, interpretation of diagnostic studies, and testing, discussion with consultants, patient, and family members, and other required patient management activities. This 63 mi nutes is in excess of all separately billable procedures. Medical Decision Making Differential Diagnosis Differential diagnosis includes etiologies such as sepsis, UTI, pneumonia, metabolic, electrolyte abnormalities, cardiac sources, intracerebral event, toxicologic, neurologic, as well as others were entertained. Medical Records Attestation: I reviewed the patient's medical records. Home Medications Current Medication List: was personally reviewed by me Laboratory Data Attestation: I reviewed the patient's lab results. Result diagrams: 12/28/18 13:30 12/28/18 13:30 Lab Results 12/28/18 12/28/18 12/28/18 Range/Units 12:05 12:42 13:30 WBC 11.15 H (4.8-10.8) K/uL RBC 3.41 L (4.2-5.4) M/uL Hgb 11.6 L (12.0-16.0) g/dL Hct 36.2 L (37-47) % MCV 106.2 H (80-100) fL MCH 34.0 (25-34) pg MCHC 32.0 (32-36) g/dL RDW Std Deviation 63.7 H (36.4-46.3) fL RDW Coeff of Ingrid 16.6 H (11.5-14.5) % Plt Count 132 (130-400) K/uL MPV 9.1 (7.4-10.4) fL Immature Gran % (Auto) 2.2 % Neut % (Auto) 60.3 % Lymph % (Auto) 25.4 % Gibson % (Auto) 11.9 % Eos % (Auto) 0.0 % Baso % (Auto) 0.2 % Immature Gran # (Auto) 0.24 H (0.00-0.02) K/uL Neut # (Auto) 6.73 H (1.4-6.5) K/uL Lymph # (Auto) 2.83 (1.2-3.4) K/uL Gibson # (Auto) 1.33 H (0.11-0.59) K/uL Eos # (Auto) 0.00 (0-0.5) K/uL Baso # (Auto) 0.02 (0-0.2) K/uL ESR (0-21) mm/hr PT (9.0-12.0) Seconds INR (0.9-1.1) APTT (21.0-31.0) Seconds PTT Ratio VBG pH (7.36-7.41) VBG pCO2 (38-50) mmHg VBG pO2 mmHg VBG HCO3 mmol/L VBG O2 Saturation % VBG Base Excess mEq/L Barometric Pressure mm/Hg Sodium (136-145) mmol/L Potassium (3.5-5.1) mmol/L Chloride (98-107) mmol/L Carbon Dioxide (21-32) mmol/L Anion Gap (3-11) BUN (7-18) mg/dl Creatinine (0.6-1.2) mg/dl Est Cr Clr Drug Dosing ml/min Est GFR ( Amer) Est GFR (Non-Af Amer) BUN/Creatinine Ratio (10-20) Glucose (70-99) mg/dl POC Glucose 121 H (70-99) Lactate (0.4-2.0) mmol/L Calcium (8.5-10.1) mg/dl Phosphorus (2.5-4.9) mg/dl Magnesium (1.8-2.4) mg/dl Total Bilirubin (0.2-1) mg/dl AST (15-37) U/L ALT (12-78) U/L Alkaline Phosphatase (45-117) U/L Troponin I (0-0.045) ng/ml C-Reactive Protein (0-0.29) mg/dl Total Protein (6.4-8.2) gm/dl Albumin (3.4-5.0) gm/dl Globulin (2.5-4.0) gm/dl Albumin/Globulin Ratio (0.9-2) Procalcitonin (0-0.5) ng/ml Random Cortisol mcg/dl Urine Color Dark Yellow Urine Appearance Cloudy A (Clear) Urine pH 5.5 (4.5-7.5) Ur Specific [place] 1.026 (1.000-1.030) Urine Protein Trace H (Negative) Urine Glucose (UA) Negative (Negative) Urine Ketones Trace H (Negative) Urine Blood Negative (Negative) Urine Nitrite Negative (Negative) Urine Bilirubin Negative (Negative) Urine Urobilinogen Negative (Negative) Ur Leukocyte Esterase Negative (Negative) Urine WBC (Auto) 5-10 H (0-5) /hpf Urine RBC (Auto) 0-4 (0-4) /hpf U Hyaline Cast (Auto) >30 H (0-5) /lpf U Epithel Cells (Auto) >30 H (0-5) /lpf Urine Bacteria (Auto) 1+ H (Negative) Ur Renal Epithelial Cell Not Reportable Urine Mucus Present A (None Prsent) Valproic Acid (50-100) mcg/ml 12/28/18 12/28/18 12/28/18 Range/Units 13:30 13:30 13:30 WBC (4.8-10.8) K/uL RBC (4.2-5.4) M/uL Hgb (12.0-16.0) g/dL Hct (37-47) % MCV (80-100) fL MCH (25-34) pg MCHC (32-36) g/dL RDW Std Deviation (36.4-46.3) fL RDW Coeff of Ingrid (11.5-14.5) % Plt Count (130-400) K/uL MPV (7.4-10.4) fL Immature Gran % (Auto) % Neut % (Auto) % Lymph % (Auto) % Gibson % (Auto) % Eos % (Auto) % Baso % (Auto) % Immature Gran # (Auto) (0.00-0.02) K/uL Neut # (Auto) (1.4-6.5) K/uL Lymph # (Auto) (1.2-3.4) K/uL Gibson # (Auto) (0.11-0.59) K/uL Eos # (Auto) (0-0.5) K/uL Baso # (Auto) (0-0.2) K/uL ESR (0-21) mm/hr PT 11.6 (9.0-12.0) Seconds INR 1.1 (0.9-1.1) APTT 25.6 (21.0-31.0) Seconds PTT Ratio 0.9 VBG pH (7.36-7.41) VBG pCO2 (38-50) mmHg VBG pO2 mmHg VBG HCO3 mmol/L VBG O2 Saturation % VBG Base Excess mEq/L Barometric Pressure mm/Hg Sodium 144 (136-145) mmol/L Potassium 3.2 L (3.5-5.1) mmol/L Chloride 108 H (98-107) mmol/L Carbon Dioxide 21 (21-32) mmol/L Anion Gap 15.0 H (3-11) BUN 33 H (7-18) mg/dl Creatinine 0.88 (0.6-1.2) mg/dl Est Cr Clr Drug Dosing 56.7 ml/min Est GFR ( Amer) 75.5 Est GFR (Non-Af Amer) 65.2 BUN/Creatinine Ratio 37.9 H (10-20) Glucose 44 L* (70-99) mg/dl POC Glucose (70-99) Lactate 11.2 H* (0.4-2.0) mmol/L Calcium 8.3 L (8.5-10.1) mg/dl Phosphorus 7.9 H (2.5-4.9) mg/dl Magnesium 2.1 (1.8-2.4) mg/dl Total Bilirubin 0.7 (0.2-1) mg/dl AST 23 (15-37) U/L ALT 22 (12-78) U/L Alkaline Phosphatase 35 L (45-117) U/L Troponin I 0.022 (0-0.045) ng/ml C-Reactive Protein 0.91 H (0-0.29) mg/dl Total Protein 5.0 L (6.4-8.2) gm/dl Albumin 2.6 L (3.4-5.0) gm/dl Globulin 2.4 L (2.5-4.0) gm/dl Albumin/Globulin Ratio 1.1 (0.9-2) Procalcitonin (0-0.5) ng/ml Random Cortisol mcg/dl Urine Color Urine Appearance (Clear) Urine pH (4.5-7.5) Ur Specific [place] (1.000-1.030) Urine Protein (Negative) Urine Glucose (UA) (Negative) Urine Ketones (Negative) Urine Blood (Negative) Urine Nitrite (Negative) Urine Bilirubin (Negative) Urine Urobilinogen (Negative) Ur Leukocyte Esterase (Negative) Urine WBC (Auto) (0-5) /hpf Urine RBC (Auto) (0-4) /hpf U Hyaline Cast (Auto) (0-5) /lpf U Epithel Cells (Auto) (0-5) /lpf Urine Bacteria (Auto) (Negative) Ur Renal Epithelial Cell Urine Mucus (None Prsent) Valproic Acid (50-100) mcg/ml 12/28/18 12/28/18 12/28/18 Range/Units 13:30 13:30 13:30 WBC (4.8-10.8) K/uL RBC (4.2-5.4) M/uL Hgb (12.0-16.0) g/dL Hct (37-47) % MCV (80-100) fL MCH (25-34) pg MCHC (32-36) g/dL RDW Std Deviation (36.4-46.3) fL RDW Coeff of Ingrid (11.5-14.5) % Plt Count (130-400) K/uL MPV (7.4-10.4) fL Immature Gran % (Auto) % Neut % (Auto) % Lymph % (Auto) % Gibson % (Auto) % Eos % (Auto) % Baso % (Auto) % Immature Gran # (Auto) (0.00-0.02) K/uL Neut # (Auto) (1.4-6.5) K/uL Lymph # (Auto) (1.2-3.4) K/uL Gibson # (Auto) (0.11-0.59) K/uL Eos # (Auto) (0-0.5) K/uL Baso # (Auto) (0-0.2) K/uL ESR 2 (0-21) mm/hr PT (9.0-12.0) Seconds INR (0.9-1.1) APTT (21.0-31.0) Seconds PTT Ratio VBG pH (7.36-7.41) VBG pCO2 (38-50) mmHg VBG pO2 mmHg VBG HCO3 mmol/L VBG O2 Saturation % VBG Base Excess mEq/L Barometric Pressure mm/Hg Sodium (136-145) mmol/L Potassium (3.5-5.1) mmol/L Chloride (98-107) mmol/L Carbon Dioxide (21-32) mmol/L Anion Gap (3-11) BUN (7-18) mg/dl Creatinine (0.6-1.2) mg/dl Est Cr Clr Drug Dosing ml/min Est GFR ( Amer) Est GFR (Non-Af Amer) BUN/Creatinine Ratio (10-20) Glucose (70-99) mg/dl POC Glucose (70-99) Lactate (0.4-2.0) mmol/L Calcium (8.5-10.1) mg/dl Phosphorus (2.5-4.9) mg/dl Magnesium (1.8-2.4) mg/dl Total Bilirubin (0.2-1) mg/dl AST (15-37) U/L ALT (12-78) U/L Alkaline Phosphatase (45-117) U/L Troponin I (0-0.045) ng/ml C-Reactive Protein (0-0.29) mg/dl Total Protein (6.4-8.2) gm/dl Albumin (3.4-5.0) gm/dl Globulin (2.5-4.0) gm/dl Albumin/Globulin Ratio (0.9-2) Procalcitonin < 0.05 (0-0.5) ng/ml Random Cortisol 5.10 mcg/dl Urine Color Urine Appearance (Clear) Urine pH (4.5-7.5) Ur Specific [place] (1.000-1.030) Urine Protein (Negative) Urine Glucose (UA) (Negative) Urine Ketones (Negative) Urine Blood (Negative) Urine Nitrite (Negative) Urine Bilirubin (Negative) Urine Urobilinogen (Negative) Ur Leukocyte Esterase (Negative) Urine WBC (Auto) (0-5) /hpf Urine RBC (Auto) (0-4) /hpf U Hyaline Cast (Auto) (0-5) /lpf U Epithel Cells (Auto) (0-5) /lpf Urine Bacteria (Auto) (Negative) Ur Renal Epithelial Cell Urine Mucus (None Prsent) Valproic Acid (50-100) mcg/ml 12/28/18 12/28/18 Range/Units 13:30 14:10 WBC (4.8-10.8) K/uL RBC (4.2-5.4) M/uL Hgb (12.0-16.0) g/dL Hct (37-47) % MCV (80-100) fL MCH (25-34) pg MCHC (32-36) g/dL RDW Std Deviation (36.4-46.3) fL RDW Coeff of Ingrid (11.5-14.5) % Plt Count (130-400) K/uL MPV (7.4-10.4) fL Immature Gran % (Auto) % Neut % (Auto) % Lymph % (Auto) % Gibson % (Auto) % Eos % (Auto) % Baso % (Auto) % Immature Gran # (Auto) (0.00-0.02) K/uL Neut # (Auto) (1.4-6.5) K/uL Lymph # (Auto) (1.2-3.4) K/uL Gibson # (Auto) (0.11-0.59) K/uL Eos # (Auto) (0-0.5) K/uL Baso # (Auto) (0-0.2) K/uL ESR (0-21) mm/hr PT (9.0-12.0) Seconds INR (0.9-1.1) APTT (21.0-31.0) Seconds PTT Ratio VBG pH 7.27 L (7.36-7.41) VBG pCO2 44 (38-50) mmHg VBG pO2 34 mmHg VBG HCO3 20 mmol/L VBG O2 Saturation < 60.0 % VBG Base Excess -6.9 mEq/L Barometric Pressure 729.8 mm/Hg Sodium (136-145) mmol/L Potassium (3.5-5.1) mmol/L Chloride (98-107) mmol/L Carbon Dioxide (21-32) mmol/L Anion Gap (3-11) BUN (7-18) mg/dl Creatinine (0.6-1.2) mg/dl Est Cr Clr Drug Dosing ml/min Est GFR ( Amer) Est GFR (Non-Af Amer) BUN/Creatinine Ratio (10-20) Glucose (70-99) mg/dl POC Glucose (70-99) Lactate (0.4-2.0) mmol/L Calcium (8.5-10.1) mg/dl Phosphorus (2.5-4.9) mg/dl Magnesium (1.8-2.4) mg/dl Total Bilirubin (0.2-1) mg/dl AST (15-37) U/L ALT (12-78) U/L Alkaline Phosphatase (45-117) U/L Troponin I (0-0.045) ng/ml C-Reactive Protein (0-0.29) mg/dl Total Protein (6.4-8.2) gm/dl Albumin (3.4-5.0) gm/dl Globulin (2.5-4.0) gm/dl Albumin/Globulin Ratio (0.9-2) Procalcitonin (0-0.5) ng/ml Random Cortisol mcg/dl Urine Color Urine Appearance (Clear) Urine pH (4.5-7.5) Ur Specific [place] (1.000-1.030) Urine Protein (Negative) Urine Glucose (UA) (Negative) Urine Ketones (Negative) Urine Blood (Negative) Urine Nitrite (Negative) Urine Bilirubin (Negative) Urine Urobilinogen (Negative) Ur Leukocyte Esterase (Negative) Urine WBC (Auto) (0-5) /hpf Urine RBC (Auto) (0-4) /hpf U Hyaline Cast (Auto) (0-5) /lpf U Epithel Cells (Auto) (0-5) /lpf Urine Bacteria (Auto) (Negative) Ur Renal Epithelial Cell Urine Mucus (None Prsent) Valproic Acid 68 (50-100) mcg/ml Imaging Data Radiologist's Impression: Radiology results as stated below per my review and the radiologist's interpretation: XR chest 1V portable CLINICAL HISTORY: 73 years-old Female presenting with Sepsis. TECHNIQUE: Portable supine AP view of the chest was obtained. COMPARISON: 07/07/2018. FINDINGS: Atherosclerosis of the aortic arch. Cardiac silhouette borderline enlarged. No focal opacity. No large effusion or pneumothorax. Osseous structures normal. Upper abdomen normal. IMPRESSION: 1. No acute cardiopulmonary disease. Electronically signed by: Tim Sampson M.D. 12/28/2018 12:[address] NONCONTRAST CT DOSE: 734.05 mGy.cm HISTORY: Altered mental status. TECHNIQUE: Multiaxial CT images of the head were performed without the use of intravenous contrast. Automated exposure control was utilized for this study. A dose lowering technique was utilized adhering to the principles of ALARA. Comparison: Head CT 10/10/2018. Findings: Small retention cyst within the frontal sinuses. The mastoid air cells are clear. There is again noted a right frontal approach ventriculostomy catheter terminates at the third ventricle. This is unchanged in position. Prior left parietal craniotomy. No calvarial fractures. The ventricles are stable in size. Slight progressive vasogenic edema within the left cerebral hemisphere most pronounced within the left frontal lobe. No hematoma or acute infarct. 2 mm right midline shift has slightly progressed. Impression: Slight progression of the vasogenic edema within the left cerebral hemisphere which now demonstrates 2 mm of right midline shift. This likely represents prog ression of the patient's known metastatic disease. Electronically signed by: Andrews Batista M.D. 12/28/2018 12:27 PM ECG Data Attestation: I personally reviewed and interpreted this ECG as follows: Indication: + altered mental status and + weakness Rate (beats per minute): 81 Rhythm: + normal sinus ECG ST segments: + ST depression (inferior and lateral ) ECG Findings: no PACs and no PVCs Comparison ECG Date: from (10/10/18) Change: the following changes noted (inferior and lateral ST depressions are new ) Blood Pressure Blood Pressure Findings: Low blood pressure MDM Narrative The patient is a 73-year-old female who presented to the emergency department from inpatient rehab for an evaluation of altered mental status. The patient has a history of metastatic breast cancer. She has a history of cerebral mets with cerebral edema. The patient also recently had a thrombotic stroke. The patient was sent to the emergency department from inpatient rehab for an evaluation. The patient was very ill-appearing upon evaluation. Her provided most of the history and physical exam. The patient was initially hypotensive. She was treated with IV fluids as well as presumptive IV empiric antibiotics. The patient had a very elevated lactic acid. Given her underlying medical condition I was unsure if this represented a nonconvulsive seizure. She was also treated with IV Keppra. I discussed the patient's laboratory and radiographic studies with her and her significant other. I also discussed her case with the on-call [facility] hospitalist group. A central line was placed for possible IV pressors. I reevaluate the patient multiple times. On subsequent reevaluation her blood pressure had improved somewhat. She was also found to have a low blood sugar on laboratory studies but on recheck of Accu- Chek this was not found to be the case. She was still given dextrose. Patient's condition is very tenuous at this time. Impression & Plan Altered mental status, Sepsis, Cerebral edema, Acidosis, lactic Discharge Plan Visit Data *Final* Discharge Date/Time: 12/28/18 16:04 Chief Complaint: Altered Mental Status ED Provider: Andrés Yadav Discharge Problem: Altered mental status, Sepsis, Cerebral edema, Acidosis, lactic Patient Disposition: Admitted As Inpatient Discharge Instructions Interventions: ED Discharge Assessment Last Done: 12/28/18 16:04 Discharge Problem: Altered mental status Qualifiers: Altered mental status type: unspecified Qualified Code(s): R41.82 - Altered mental status, unspecified Sepsis Qualifiers: Sepsis type: sepsis due to unspecified organism Sepsis acute organ dysfunction status: with acute organ dysfunction Severe sepsis acute organ dysfunction type: encephalopathy Severe sepsis shock status: with septic shock Qualified Code(s): A41.9 - Sepsis, unspecified organism The scribe's documentation has been prepared under my direction and personally reviewed by me in its entirety. I confirm that the note above accurately reflects all work, treatment, procedures, and medical decision making performed by me.
--- NOTE | 2018-12-28 12:29 | CT Scan Report ---
HEAD CT NONCONTRAST CT DOSE: 734.05 mGy.cm HISTORY: Altered mental status. TECHNIQUE: Multiaxial CT images of the head were performed without the use of intravenous contrast. A utomated exposure control was utilized for this study. A dose lowering technique was utilized adheri ng to the principles of ALARA. Comparison: Head CT 10/10/2018. Findings: Small retention cyst within the frontal sinuses. The mastoid air cells are clear. There is again noted a right frontal approach ventriculostomy catheter terminates at the third ventricle. This is unchanged in position. Prior left parietal craniotomy. No calvarial fractures. The ventricles are stable in size. Slight progressive vasogenic edema within the left cerebral hemisphere most pronounc ed within the left frontal lobe. No hematoma or acute infarct. 2 mm right midline shift has slightly progressed. Impression: Slight progression of the vasogenic edema within the left cerebral hemisphere which now demonstrates 2 mm of right midline shift. This likely represents progression of the patient's known metastatic dis ease. Electronically signed by: Andrews Batista M.D. 12/28/2018 12:27 PM
[2018-12-28 12:33] LABS: Appearance Urine Cloudy (Clear); Blood Urine Negative (Negative); Color Urine Dark Yellow; Epithelial Cell Urine Auto >30 /lpf (0-5); Glucose Urine UA Negative (Negative); Ketones Urine Trace (Negative); Leukocyte Esterase Urine Negative (Negative); Nitrite Urine Negative (Negative); Protein Urine Trace (Negative); RBC Urine Automated 0-4 /hpf (0-4); Specific Gravity Urine 1.026 (1.000-1.030); Urobilinogen Urine Negative (Negative); pH Urine 5.5 (4.5-7.5)
--- NOTE | 2018-12-28 12:39 | XRay Report ---
XR chest 1V portable CLINICAL HISTORY: 73 years-old Female presenting with Sepsis. TECHNIQUE: Portable supine AP view of the chest was obtained. COMPARISON: 07/07/2018. FINDINGS: Atherosclerosis of the aortic arch. Cardiac silhouette borderline enlarged. No focal opacity. No larg e effusion or pneumothorax. Osseous structures normal. Upper abdomen normal. IMPRESSION: 1. No acute cardiopulmonary disease. Electronically signed by: Tim Sampson M.D. 12/28/2018 12:38 PM
[2018-12-28 12:47] LABS: Bilirubin Urine Negative (Negative); Cast Urine Automated >30 /lpf (0-5); Ictotest Urine Negative (Negative)
[2018-12-28] MEDS ORDERED: PIPERACILLIN/TAZOBACTAM 4.5 GM/120 ML BAG IV ONE (12:47)
[2018-12-28] MEDS ORDERED: PIPERACILL/TAZOBAC CONSULT ACTIVE PRN ×2 (12:47→16:33)
[2018-12-28 12:48] LABS: Bacteria Urine Automated 1+ (Negative); Mucus Urine Present (None Prsent)
[2018-12-28 13:53] LABS: Basophils # (auto) 0.02 K/uL (0-0.2); Basophils % (auto) 0.2 %; Hematocrit (blood only) 36.2 % (37-47); Hemoglobin 11.6 g/dL (12.0-16.0); Immature Granulocytes # (auto) 0.24 K/uL (0.00-0.02); Immature Granulocytes % (auto) 2.2 %; Lymphocytes # (auto) 2.83 K/uL (1.2-3.4); Lymphocytes % (auto) 25.4 %; Mean Corpuscular Volume 106.2 fL (80-100); Mean Platelet Volume 9.1 fL (7.4-10.4); Monocytes # (auto) 1.33 K/uL (0.11-0.59); Monocytes % (auto) 11.9 %; Neutrophils # (auto) 6.73 K/uL (1.4-6.5); Neutrophils % (auto) 60.3 %; Platelet Count 132 K/uL (130-400); RDW Coefficient of Variation 16.6 % (11.5-14.5); RDW Standard Deviation 63.7 fL (36.4-46.3); Red Blood Count 3.41 M/uL (4.2-5.4); White Blood Count 11.15 K/uL (4.8-10.8)
--- NOTE | 2018-12-28 13:54 | History & Physical Report ---
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 Recent hospitalization at [facility] on 12/21/18-12/27/18 for worsening AMS and was treated for UTI, had residential EEG with some signs of suspicious seizures. Treated for embolic stroke and started on Lovenox. In ER pt afebrile, P: 95, R: 16, BP: 83/71, 93% on RA WBC: 11, H/H: 11.6/36 (baseline hgb: 13), lactate: 11, procalcitonin <0.05, K:3.2, Cl: 108, A, BUN: 33, Cr: 0.8, glucose: 44, troponin: 0.022, UA: 5-10 WBC, >30 hyaline cast, >30 epithelial, 1+bacteria CXR: No acute cardiopulmonary disease. CT Head: Slight progression of the vasogenic edema within the left cerebral hemisphere which now demonstrates 2 mm of right midline shift. This likely represents progression of the patient's known metastatic disease. 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 Dr Carr-neurology at [facility] H/O MRI BRAIN At [facility] ON 12/23/18: Impression: "New foci of restricted diffusion involving the left frontal and occipital subcortical white matter. Slightly increased restricted diffusion involving the splenium of the corpus callosum at the site of dural-based falcotentorial metastatic lesion. No significant progression of enhancing dural- based metastatic lesions or worsening of mass effect. Findings may represent treatment-related effects/necrosis or possibly embolic infarcts. The notable absence of corresponding enhancement argues against confounded metastatic disease progression. -Convert pt's po dexamethasone to IV for now -Monitor (5) History of seizure: Reported recent prolonged EEG during admission at [facility] showed suspicion for seizure No reported recent tonic clonic seizure like activity Depakote level: 68 -Seizure precautions -Convert po Keppra to IV -Convert Depakote po to IV -Ativan prn seizure (6) CVA (cerebral vascular accident): Recent diagnosis embolic stroke 12/23/18 at [facility] [place] -Lovenox SQ BID DVT Prophylaxis -On therapeutic Lovenox DNR/DNI as per discussion with pt's . Reports wants antibiotics, IVFs at this time. Follows with Dr Kade Larios for routine care Pt was seen and care coordinated with Dr Barnhart. 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 History obtained through records and pts . Pt with recent hospitalization at [facility] on 12/21/18-12/27/18 for worsening altered mental status. During hospitalization was treated for UTI, had residential EEG with some signs of suspicious seizures. Treated for embolic stroke. Brain MRI new foci of restricted diffusion involving the left frontal and occipital subcortical white matter. Slightly increased restricted diffusion involving the splenium of the corpus callosum at the site of dural-based rekha tentorial metastatic lesion. No significant progression of enhancing dural-based metastatic lesions or worsening of mass effect. Findings may represent treatment-related effects/necrosis or possibly embolic infarcts. The notable absence of corresponding enhancement argues against confounded metastatic disease progression. Pt was started on Lovenox 1mg/kg BID. Pt discharged to [facility] rehab. reports pt needing 2 person assist since recent hospitalization. reports he was told pt was at baseline this morning at breakfast and no reports of aspiration. States was told was doing therapy today when pt became unresponsive and was transported to [facility] ER. reports pt with progressive decline over past 6 weeks with progressive decreased speech to now no further speech. Pt was able to follow commands. Reports he saw pt last night and she was at her baseline and this morning she looked very tired and was not interacting like her baseline. Follows with Dr Neville oncology, and Dr Carr neurology at [facility]. Upon ER arrival pt found to be minimally responsive and hypotensive. A central line was placed and pt given IVF, zosyn. Allergies Allergy/AdvReac Type Severity Reaction Status Date / Time No Known Allergies Allergy Verified 10/10/18 17:09 Home Medications Home Medications Medication Instructions Recorded Confirmed Type dexamethasone 4 mg PO BIDM 10/10/18 12/28/18 History levetiracetam 1,000 mg PO BID 10/10/18 12/28/18 History clonazepam 0.5 mg PO BID PRN 12/28/18 12/28/18 History divalproex 1,000 mg PO BID 12/28/18 12/28/18 History enoxaparin 80 mg SUBCUT Q12H 12/28/18 12/28/18 History furosemide 20 mg PO DAILY PRN 12/28/18 12/28/18 History omeprazole 20 mg PO DAILY 12/28/18 12/28/18 History Past Med/Surg History Medical History Breast cancer CVA (cerebral vascular accident) Expressive aphasia (Acute) History of cancer metastatic to brain History of seizure Intracranial pressure increased Vasogenic brain edema Surgical History History of brain surgery History of mastectomy Family History Other Breast cancer Lung cancer Social History Preferred Language: Ukrainian Communication Ability: Unable Communication Ability Comment: 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 Required: No Beliefs That Will Affect Care: None marital status: Current Living Situation: Spouse current occupational status: retired Other Information That Helps Us Care for You: No Feels Safe at Home: Yes Safety Concerns: Feels Safe At This Time Smoking Status: Former smoker Hx Alcohol Use: No Hx Substance Use: No Review of Systems Review of Systems: Unobtainable due to cognitive status Physical Exam Physical Exam: General: ill appearing elderly female, minimally responsive, moderately developed, moderately nourished Head: normocephalic, atraumatic; right scalp with intrathecal cath without overlying erythema Eyes: pt opens eyes intermittently, PERRL, conjunctiva non-injected, anicteric ENT: normal inspection external ears, nose, mucous membranes dry Neck: supple, trachea midline Lungs: clear, no respiratory distress, no wheezing/rhonchi/rales CV: RRR, no murmur, no significant pretibial edema Abd: normal BS, soft, non-tender Ext: extremities mottled Neuro: opens eyes intermittently, intermittently raises left arm to pull at pulse oximeter Skin: cool, mottled extremities, dry, +multiple ecchymosis to upper and lower extremities bilaterally and abdomen; right dorsal foot with 0.5cm bolus without surrounding erythema Results & Data Vital Signs (Past 12 Hours) Vital Signs Temp Pulse Pulse Resp BP BP Pulse Ox 12/28/18 12:54 86 12 98/81 L 12/28/18 12:30 60/0 L 12/28/18 12:10 93 12/28/18 12:09 37 C 95 H 16 83/71 L 93 Laboratory Results Short CBC 12/28/18 Range/Units 13:30 WBC 11.15 H (4.8-10.8) K/uL Hgb 11.6 L (12.0-16.0) g/dL Hct 36.2 L (37-47) % Plt Count 132 (130-400) K/uL BMP 12/28/18 13:30 Sodium 144 Potassium 3.2 L Chloride 108 H Carbon Dioxide 21 BUN 33 H Creatinine 0.88 Glucose 44 L* Calcium 8.3 L Cardiac Enzymes 12/28/18 Range/Units 13:30 Troponin I 0.022 (0-0.045) ng/ml Liver Function 12/28/18 Range/Units 13:30 Total Bilirubin 0.7 (0.2-1) mg/dl AST 23 (15-37) U/L ALT 22 (12-78) U/L Alkaline Phosphatase 35 L (45-117) U/L Albumin 2.6 L (3.4-5.0) gm/dl Urine 12/28/18 Range/Units 12:05 Urine Color Dark Yellow Urine Appearance Cloudy A (Clear) Urine pH 5.5 (4.5-7.5) Ur Specific [place] 1.026 (1.000-1.030) Urine Protein Trace H (Negative) Urine Glucose (UA) Negative (Negative) Diagnostic Findings CT HEAD: Impression: Slight progression of the vasogenic edema within the left cerebral hemisphere which now demonstrates 2 mm of right midline shift. This likely represents progression of the patient's known metastatic disease. CXR: IMPRESSION: 1. No acute cardiopulmonary disease. ECG Rate (beats per minute): 81 Rhythm: sinus rhythm Findings: + ST depression (Anterolateral) Supervising Physician Co-Signing Physician Notes Attending addendum: The patient was seen and examined in telemetry unit She was brought in with the change in mental status and possible loss of consciousness She has been aphasic and almost bedbound since a diagnosis of metastatic cancer Did not have any apparent distress during examination On examination Aphasic, very weak and lethargic, noncommunicative Afebrile with blood pressure at the lower side of systolic below 90 Chest-decreased breath sounds bilaterally Heart-S1-S2, regular Abdomen-benign Extremities-bilateral 1-2+ edema She has generalized bruising all over the body INSURANCE OFFICE MANAGER-alert and awake, noncommunicative Admission labs, imaging studies and EKG reviewed Has a metastatic breast cancer to the brain with worsening scan finding and general condition The case was discussed with the in detail She was started with aggressive management with antibiotic, increasing dose of Decadron and other supportive care Prognosis remained very poor Agree with assessment and plan as outlined above by BAUDILIO Castillo Dr
[2018-12-28 14:09] LABS: INR 1.1 (0.9-1.1); Partial Thromboplastin Ratio 0.9; Partial Thromboplastin Time 25.6 Seconds (21.0-31.0); Prothrombin Time 11.6 Seconds (9.0-12.0)
[2018-12-28] MEDS ORDERED: LACTATED RINGER'S 1,000 ML IV ONE (14:17)
[2018-12-28 14:38] LABS: Albumin Globulin Ratio 1.1 (0.9-2); Albumin Level 2.6 gm/dl (3.4-5.0); BUN Creatinine Ratio 37.9 (10-20); Bilirubin,Total 0.7 mg/dl (0.2-1); C Reactive Protein 0.91 mg/dl (0-0.29); Calcium 8.3 mg/dl (8.5-10.1); Creatinine Clr Calc Pharmacy 56.7 ml/min; Est GFR (African American) 75.5; Est GFR (Non-African American) 65.2; Globulin 2.4 gm/dl (2.5-4.0); Magnesium 2.1 mg/dl (1.8-2.4); Phosphorus 7.9 mg/dl (2.5-4.9); Potassium 3.2 mmol/L (3.5-5.1); Troponin I 0.022 ng/ml (0-0.045)
[2018-12-28 14:44] LABS: Base Excess VBG -6.9 mEq/L; HCO3 VBG 20 mmol/L; Oxygen Saturation VBG < 60.0 %; PCO2 VBG 44 mmHg (38-50); PO2 VBG 34 mmHg; pH VBG 7.27 (7.36-7.41)
[2018-12-28] MEDS ORDERED: DEXTROSE 50% 50 ML SYRINGE IV STA (14:46)
[2018-12-28] MEDS ORDERED: DEXTROSE 50% 50 ML SYRINGE IV ONE (14:48)
[2018-12-28] MEDS ORDERED: DEXAMETHASONE SOD INJ 4 MG/ML VIAL IV STA (16:17)
[2018-12-28] MEDS ORDERED: LORazepam 1 MG/2 ML VIAL IV PRN (16:17)
[2018-12-28] MEDS ORDERED: ONDANSETRON INJ 2 MG/ML 2 ML VIAL IV PRN (16:17)
[2018-12-28] MEDS ORDERED: VANCOMYCIN CONSULT ACTIVE PRN (16:33)
[2018-12-28] MEDS ORDERED: DEXAMETHASONE SOD PHOSPHATE 4 MG in SYRINGE 0 ML IV SCH (17:00)
[2018-12-28] MEDS ORDERED: D5NSS + 20MEQ KCL 20 MEQ/1,000 ML BAG IV SCH (17:00)
[2018-12-28] MEDS ORDERED: VALPROATE SOD 500 MG in DEXTROSE 5% 50 ML IV SCH (17:00)
[2018-12-28] MEDS ORDERED: VANCOMYCIN HCL 2,000 MG in SODIUM CHLORIDE 0.9% 500 ML IV ONE (17:00)
[2018-12-28] MEDS ORDERED: PIPERACILLIN/TAZOBACTAM 3.375 GM in DEXTROSE 5% 100 ML IV SCH (18:00)
[2018-12-28] MEDS ORDERED: ENOXAPARIN 80 MG/0.8 ML SYR SQ SCH (18:00)
[2018-12-28 18:17] LABS: Influenza A virus by PCR Neg for Influ A (Neg); Influenza B virus by PCR Neg for Influ B (Neg)
--- NOTE | 2018-12-28 19:18 | Pharmacy Report ---
Pharmacy Abx Initial Consult - Date of Service December 28, 2018 - Pharmacy Dosing Scope Date of Consult: 12/28/18 Consultation requested by: Rosalie Wolf PA-C Pharmacy is consulted to initiate IV Vancomycin & Zosyn dosing therapy, order appropriate labs and adjust drug dose/frequency. - Subjective The patient is a 73 year old F admitted on 12/28/18 14:40 with AMS, PMH significant for breast cancer w/ mets to brain, seizures, and embolic CVA. - Objective Height: 5 ft 3 in Weight: 81.1 kg Vital Signs (Past 12hrs): Vital Signs Temp Pulse Pulse Resp BP BP Pulse Ox 12/28/18 16:28 12/28/18 16:08 36.4 C L 98 H 19 102/90 93 12/28/18 15:23 74 107/81 97 12/28/18 14:05 79 14 133/56 L 97 12/28/18 12:54 86 12 98/81 L 12/28/18 12:30 60/0 L 12/28/18 12:10 93 12/28/18 12:09 37 C 95 H 16 83/71 L 93 Pulse Ox 12/28/18 16:28 96 12/28/18 16:08 12/28/18 15:23 12/28/18 14:05 12/28/18 12:54 12/28/18 12:30 12/28/18 12:10 12/28/18 12:09 Lab Results (24hrs): Laboratory Tests (24 Hours) 12/28/18 12/28/18 12/28/18 13:30 13:30 13:30 WBC Neut # (Auto) ESR 2 Creatinine 0.88 Est Cr Clr Drug Dosing 56.7 C-Reactive Protein 0.91 H Procalcitonin < 0.05 12/28/18 13:30 WBC 11.15 H Neut # (Auto) 6.73 H ESR Creatinine Est Cr Clr Drug Dosing C-Reactive Protein Procalcitonin Micro Results: 12/28/18 14:10 Aerobic Blood Culture - Pending Blood Anaerobic Blood Culture - Pending 12/28/18 13:30 Aerobic Blood Culture - Pending Blood Anaerobic Blood Culture - Pending 12/28/18 12:05 Urine Culture - Pending Urine,Straight Cath - Risk Factors for Resistance * Recent hospitalization at [facility] on 12/21/18-12/27/18 for worsening AMS and was treated for UTI * Immunocompromised - Assessment & Plan Assessment 73 year old F admitted with AMS, starting empiric antibiotics. Lactate elevated at 14 WBC 11.1 Afebrile Plan Vancomycin and Zosyn for empiric antibiotic treatment Vancomycin IV * Loading dose: 2000 mg (25 mg/kg) * Maintenance dose: 1000 mg IV (12.5 mg/kg) every 12 hours * Trough level ordered for 12/30/18 Piperacillin/tazobactam * 4.5 g bolus administered over 30 minutes given in ER, then 3.375 g IV extended infusion every 8 hours for CrCl greater than 20 mL/min Pharmacy will continue to follow and will adjust dose/frequency as necessary. Thank you.
[2018-12-28] MEDS ORDERED: SODIUM CHLORIDE 0.9% 1000ML 500 ML IV ONE (20:33)
[2018-12-28] MEDS ORDERED: FAMOTIDINE 20 MG in SYRINGE 3 ML IV SCH (21:00)
[2018-12-28] MEDS ORDERED: FAMOTIDINE 200 MG/20 ML VIAL IV SCH (21:00)
--- NOTE | 2018-12-28 22:03 | XRay Report ---
SINGLE VIEW CHEST CLINICAL HISTORY: Hypoxia. FINDINGS: An AP, portable, upright chest radiograph is performed earlier the same day 12/28/2018. Cor relation is made with chest CT dated 03/14/2017. The examination is degraded by portable technique and patient rotation. The heart is top normal for projection. There is mild uncoiling of the thoracic aor ta, similar to prior studies. There is mild bibasilar atelectasis. The lungs and pleural spaces are o therwise clear. No pneumothorax is seen. The skeletal structures are osteopenic. The bony thorax is g rossly intact. IMPRESSION: No active disease in the chest and no change from today's earlier examination. Electronically signed by: Semaj Stringer M.D. 12/28/2018 10:00 PM
--- NOTE | 2018-12-28 22:15 | Death Summary ---
Date of Service December 28, 2018 Pronouncement Note Date and Time of Date of : 12/28/18 Time of : 22:15 PCOD Preliminary cause of : Intracranial tumor Contributing Factors (1) History of cancer metastatic to brain: (2) Altered mental status: (3) Hypotension: (4) Breast cancer: (5) History of seizure: (6) CVA (cerebral vascular accident): Additional Data Confirmation of : no pulse, no respirations, no heart sounds and pupils fixed and dilated Family: contacted Attending/PCP notified?: No Attending physician: Berta Barnhart MD
--- NOTE | 2018-12-28 22:16 | Discharge Summary ---
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 History obtained through records and pts . Pt with recent hospitalization at [facility] on 12/21/18-12/27/18 for worsening altered mental status. During hospitalization was treated for UTI, had oral and maxillofacial surgeon EEG with some signs of suspicious seizures. Treated for embolic stroke. Brain MRI new foci of restricted diffusion involving the left frontal and occipital subcortical white matter. Slightly increased restricted diffusion involving the splenium of the corpus callosum at the site of dural-based fa lcotentorial metastatic lesion. No significant progression of enhancing dural- based metastatic lesions or worsening of mass effect. Findings may represent treatment-related effects/necrosis or possibly embolic infarcts. The notable absence of corresponding enhancement argues against confounded metastatic disease progression. Pt was started on Lovenox 1mg/kg BID. Pt discharged to [facility] rehab. reports pt needing 2 person assist since recent hospitalization. reports he was told pt was at baseline this morning at breakfast and no reports of aspiration. States was told was doing therapy today when pt became unresponsive and was transported to [facility] ER. reports pt with progressive decline over past 6 weeks with progressive decreased speech to now no further speech. Pt was able to follow commands. Reports he saw pt last night and she was at her baseline and this morning she looked very tired and was not interacting like her baseline. Follows with Dr Neville oncology, and Dr Carr neurology at [facility]. Upon ER arrival pt found to be minimally responsive and hypotensive. A central line was placed and pt given IVF, zosyn. Discharge Data Consultations 12/28/18 12:52 ED Decision to Admit Stat 12/28/18 16:17 Consult Case Management - Discharge Planning Routine Hospital Course (1) Cerebral edema: Patient admitted for decreased responsiveness. CT of the head showed slight progression of vasogenic edema within left cerebral hemisphere which now demonstrates 2 mm right midline shift likely representing progression of patient's known metastatic disease. IV steroids initiated for tumorigenic edema. IVF, IV Zosyn given for possible sepsis. Around 8:30 PM, progressive hypotension noted unresponsive to IVF bolus given. Decreased responsiveness, progressive hypoxemia noted. Patient's DNR status on admission affirmed by over the telephone. Patient ceased to breathe at 10:15 PM.
[2018-12-29] MEDS ORDERED: VANCOMYCIN HCL 1,000 MG in SODIUM CHLORIDE 0.9% 250 ML IV SCH (04:00)
[2018-12-30] MEDS ORDERED: VANCOMYCIN TROUGH ONE (03:30)
--- NOTE | 2019-01-04 09:14 | Coding Query ---
CODING QUERY To promote full compliance with coding requirements relating to patient care, provider participation is requested in all cases of mattress filling machine tender uncertainty. Please assist us with the question(s) below: Coding Question(s): Patient admitted for cerebral edema in the setting of metastatic neoplasm to the brain/meninges. Patient also admitted with aphasia and RUE weakness. Please document, if known or suspected, the etiology of the aphasia and RUE weakness. Thank you. Jonny Baez [facility] Physician's Response(s): Aphasia and right upper extremity weakness was there before and likely aggravated by cerebral edema secondary to metastatic neoplasm to the brain. Principal Diagnosis: "that condition established after study, to be chiefly responsible for occasioning the admission of the patient to the hospital for care." Co-Existing Principal Diagnosis: "when two or more diagnoses equally meet the criteria for principal diagnosis as determined by the circumstances of admission, diagnostic work up, and/or therapy provided, and the Alphabetic Index, Tabular List, or another coding guideline does not provide sequencing direction, any one of the diagnoses may be sequenced first." "When the physician has documented what appears to be a current diagnosis in the body of the record, but has not included the diagnosis in the final diagnostic statement, the physician should be asked whether the diagnosis should be added." (Source Coding Clinic 2 QTR90. p3-4) GLADYS
== END 2018-12-28 23:36 | disposition expired | DRG 81 ==
LOC: ED 11:48 → 2E 14:40